=== PATIENT | male | born 1940 | race Caucasian/White ===

== ENCOUNTER 2020-06-15 19:08 | Inpatient (IN) | payer MEDICARE ==
[2020-06-15] MEDS: Albuterol/Ipratropium 3.0-0.5 MG/3 ML Neb Soln ONE ×3 (19:15→23:39)
[2020-06-15] MEDS ORDERED: Morphine 2 MG/ML SYRINGE IVPUSH ONE (20:00)
[2020-06-15] MEDS ORDERED: Morphine 2 MG/ML SYRINGE ONE (20:10)
[2020-06-15] MEDS ORDERED: Diltiazem 25 MG/5 ML SDV IVPUSH ONE (20:25)
[2020-06-15] MEDS ORDERED: D5 1/2 NS w/ 40 mEq/L KCl 1,000 ML ONE (20:38)
[2020-06-15] MEDS ORDERED: Sodium Chloride 0.9% with KCl 1,000 ML IV SCH (20:45)
[2020-06-15] MEDS ORDERED: ceFAZolin 1 GM in Sodium Chloride 0.9% 50 ML IV ONE (21:46)
[2020-06-15] MEDS ORDERED: Azithromycin 500 MG in Sodium Chloride 0.9% 250 ML IV ONE (21:47)
[2020-06-15] MEDS ORDERED: ceFAZolin 1 GM Vial ONE (22:25)
[2020-06-15] MEDS ORDERED: Furosemide 40 MG/4 ML VIAL IVPUSH ONE (23:25)
--- NOTE | 2020-06-15 23:38 | CT ---
DATE OF SERVICE: 06/15/2020 CLINICAL DATA: Found lying on floor. SOB. UNENHANCED BRAIN CT: Multislice axial acquisition was performed. Comparison is made to a prior exam dated 07/22/2016. There is diffuse cerebral atrophy. There are extensive periventricular lucencies bilaterally consistent with small vessel ischemic change. No masses or mass effect. No intracranial hemorrhage. No evidence of acute or subacute infarct. No fractures. There is mucosal thickening in the ethmoid sinuses consistent with chronic sinusitis. There is also mucosal thickening and fluid in the sphenoid sinuses consistent with sinusitis. No fractures. IMPRESSION: No acute intracranial abnormalities. [id number] [facility]
[2020-06-15] MEDS: Albuterol/Ipratropium 3.0-0.5 MG/3 ML Neb Soln NEB SCH (23:53)
--- NOTE | 2020-06-16 00:14 | CT ---
DATE OF SERVICE: 06/15/2020 CLINICAL DATA: SOB- found lying on floor. UNENHANCED CHEST CT: Multislice axial acquisition without IV contrast was performed. No priors. Breathing motion artifact significantly degrades image quality. There are small bilateral pleural effusions, right greater than left. There are atelectatic changes in the dependent portion of both lungs and in both lung bases. The lungs are otherwise clear. No pneumothorax. The heart is enlarged. Cardiac pacer leads are noted. There are moderate coronary artery calcifications. No significant pericardial effusion. No aortic aneurysm. No hilar or mediastinal adenopathy. There is diffuse mural thickening throughout the thoracic esophagus. Esophagitis or an infiltrating process should be considered. There is a small hiatal hernia. There is degenerative disc disease throughout the thoracic spine. There is anterior wedging of multiple thoracic vertebrae that appear to be chronic. There is a chronic fracture of the sternum. No other significant findings. UNENHANCED ABDOMEN AND PELVIC CT: Multislice axial acquisition without IV or oral contrast was performed. No priors. There are small bilateral pleural effusions. There is a small hiatal hernia. The unenhanced liver appears normal. No focal hepatic lesions. The gallbladder appears normal. No calcified gallstones. The spleen appears normal. The pancreas is atrophic, otherwise normal. The right and left adrenals appear normal. There is mild atrophy at both kidneys. The right and left kidneys are otherwise unremarkable. No hydronephrosis or hydroureter. The patient is status post bilateral total hip arthroplasty. This does produced significant beam hardening and streak artifact obscuring adjacent structures. The bladder is fluid filled. It is partially obscured. No gross abnormalities. No free air. No free fluid. No dilated loops of bowel. No adenopathy. No aortic aneurysm. There is diverticulosis of the descending and sigmoid colon. No evidence of diverticulitis. There is mural thickening within the proximal and mid sigmoid colon most likely related to chronic diverticular disease. Colonoscopy should be considered to exclude an infiltrating process. There is a fat containing ventral hernia within the midline of the anterior abdominal wall. There is degenerative disc disease throughout the lumbar spine. No acute displaced fractures. IMPRESSION: No acute abnormalities. Multiple other findings as discussed above. See above recommendation. [id number] [facility]
[2020-06-16] MEDS ORDERED: LORazepam 2 MG/ML SDV IVPUSH PRN (00:17)
--- NOTE | 2020-06-16 02:37 | ADMIT ---
This 80-year-old male was admitted from the emergency room with pneumonia, hypokalemia, and elevated troponin level, lactic acid of 2.7 elevated, and CHF with a BNP of 13,600. The patient is malnourished. He is somewhat dehydrated. He was found lying on the floor at home for an extended period of time, thought to be over 1 day. Cardiology was consulted involving the elevated troponin level and it was determined that he would be admitted here and serial troponins every 6 to 8 hours will be done to see if they continue to elevate. If they elevate, Cardiology will be contacted once again for transfer purposes. If the troponins remain roughly the same or go down, this is not an acute cardiac event and that is the assumption after my conversation with Cardiology. A CPK will be drawn as well as repeat labs including a troponin, CBC, CMP, BNP, and lactic acid in the morning. The patient was started on normal saline with potassium 40 mEq. This was initially given at a rate of 250 mL an hour for 2 hours and it will be dropped down to 125 until 1 L infused. We will give Lasix 40 mg IV and insert a Gtz catheter. Due to the lactic acid being elevated along with a white count of 13,300, the patient will be given Ancef and Zithromax IV tonight as well. His vital signs have stabilized since coming to the emergency room and the patient has denied pain the entire time. Bruising was noted to the right shoulder and the right side of his face and he is in quite poor hygiene upon arrival. The patient will be followed with lab work and monitoring him closely overnight to see how he responds. So far, he is responding favorably. CRS/MODL /[id number]
[2020-06-16] MEDS: Albuterol/Ipratropium 3.0-0.5 MG/3 ML Neb Soln NEB SCH ×6 (04:00→23:51)
[2020-06-16] MEDS: Lisinopril 10 MG Tab PO SCH (07:37)
[2020-06-16] MEDS: amLODIPine 5 MG Tab PO SCH (07:38)
[2020-06-16] MEDS: Aspirin 81 MG Tab.EC PO SCH (07:38)
[2020-06-16] MEDS: Spironolactone 25 MG Tab PO SCH (07:38)
[2020-06-16] MEDS ORDERED: Non-Formulary Medication 1 Each (Fluticasone/Salmeterol [Advair 250-50] 1 PUFF) INH SCH (08:00)
--- NOTE | 2020-06-16 12:02 | PCM.PN ---
- General Info Date of Service: 06/16/20 Subjective Update: Patient alert to place, month and year. He knows the current president. He denies any pain or fever. He notes he doesn't feel 100% but cannot tell what it is. Functional Status: Reports: Tolerating Diet - Review of Systems General: Reports: Weakness, Fatigue HEENT: Reports: No Symptoms Pulmonary: Reports: No Symptoms Cardiovascular: Reports: No Symptoms Gastrointestinal: Reports: No Symptoms Genitourinary: Reports: No Symptoms Musculoskeletal: Reports: No Symptoms Skin: Reports: No Symptoms Neurological: Reports: Difficulty Walking, Weakness Psychiatric: Reports: No Symptoms - Patient Data Vitals - Most Recent: Last Vital Signs Temp 36.6 C 06/16/20 08:00 Pulse 93 06/16/20 08:00 Resp 22 H 06/16/20 08:00 BP 173/102 H 06/16/20 08:00 Pulse Ox 94 L 06/16/20 08:00 Weight - Most Recent: 72.575 kg I&O - Last 24 Hours: Intake & Output 06/15/20 06/16/20 06/16/20 22:59 06:59 14:59 Intake Total 1050 Output Total 1675 Balance -625 Lab Results Last 24 Hours: Laboratory Results - last 24 hr 06/15/20 06/15/20 06/15/20 Range/Units 20:10 20:10 20:10 WBC 13.3 H D (4.0-11.0) K/uL RBC 5.42 (4.50-6.50) M/uL Hgb 14.5 (13.0-18.0) g/dL Hct 43.3 (40.0-54.0) % MCV 80 (76-96) fL MCH 26.8 L (27.0-32.0) pg MCHC 33.5 (31.0-35.0) g/dL RDW 16.0 (11.0-16.0) % Plt Count 314 (150-400) K/uL MPV 8.2 (6.0-10.0) fL Neut % (Auto) 83.6 H (45.0-70.0) % Lymph % (Auto) 6.2 L (20.0-40.0) % [place] % (Auto) 10.1 H (3.0-10.0) % Eos % (Auto) 0.0 L (1.0-5.0) % Baso % (Auto) 0.1 (0.0-0.5) % Neut # (Auto) 11.14 H (2.00-7.50) K/uL Lymph # (Auto) 0.83 L (1.50-4.00) K/uL [place] # (Auto) 1.35 H (0.20-0.80) K/uL Eos # (Auto) 0.00 L (0.04-0.40) K/uL Baso # (Auto) 0.02 (0.02-0.10) K/uL PT 12.7 H D (9.0-11.5) sec INR 1.2 D (1.0-3.5) Sodium 135 L (136-145) mmol/L Potassium 2.7 L* D (3.5-5.1) mmol/L Chloride 94 L (98-107) mmol/L Carbon Dioxide 32.0 (21.0-32.0) mmol/L Anion Gap 11.7 (5.0-15.0) mmol/L BUN 17 D (8-26) mg/dL Creatinine 1.02 D (0.70-1.30) mg/dL Est Cr Clr Drug Dosing TNP Estimated GFR (MDRD) > 60 (>60) MLS/MIN BUN/Creatinine Ratio 16.7 (6-25) Glucose 111 H (74-100) mg/dL Lactic Acid (0.4-2.0) mmol/L Calcium 8.3 L (8.5-10.1) mg/dL Total Bilirubin 2.7 H D (0.0-1.0) mg/dL AST 80 H (15-37) U/L ALT 41 (12-78) U/L Alkaline Phosphatase 130 H (46-116) U/L Creatine Kinase (21-232) U/L Troponin I (0.000-0.060) ng/mL B-Natriuretic Peptide (0-450) pg/mL Total Protein 7.5 (6.4-8.2) g/dL Albumin 2.6 L (3.4-5.0) g/dL Globulin 4.9 H (2.2-4.2) g/dL Albumin/Globulin Ratio 0.5 L (0.8-2.0) SARS CoV-2 RNA Rapid KENDAL 06/15/20 06/15/20 06/15/20 Range/Units 20:10 20:10 20:10 WBC (4.0-11.0) K/uL RBC (4.50-6.50) M/uL Hgb (13.0-18.0) g/dL Hct (40.0-54.0) % MCV (76-96) fL MCH (27.0-32.0) pg MCHC (31.0-35.0) g/dL RDW (11.0-16.0) % Plt Count (150-400) K/uL MPV (6.0-10.0) fL Neut % (Auto) (45.0-70.0) % Lymph % (Auto) (20.0-40.0) % [place] % (Auto) (3.0-10.0) % Eos % (Auto) (1.0-5.0) % Baso % (Auto) (0.0-0.5) % Neut # (Auto) (2.00-7.50) K/uL Lymph # (Auto) (1.50-4.00) K/uL [place] # (Auto) (0.20-0.80) K/uL Eos # (Auto) (0.04-0.40) K/uL Baso # (Auto) (0.02-0.10) K/uL PT (9.0-11.5) sec INR (1.0-3.5) Sodium (136-145) mmol/L Potassium (3.5-5.1) mmol/L Chloride (98-107) mmol/L Carbon Dioxide (21.0-32.0) mmol/L Anion Gap (5.0-15.0) mmol/L BUN (8-26) mg/dL Creatinine (0.70-1.30) mg/dL Est Cr Clr Drug Dosing Estimated GFR (MDRD) (>60) MLS/MIN BUN/Creatinine Ratio (6-25) Glucose (74-100) mg/dL Lactic Acid 2.7 H (0.4-2.0) mmol/L Calcium (8.5-10.1) mg/dL Total Bilirubin (0.0-1.0) mg/dL AST (15-37) U/L ALT (12-78) U/L Alkaline Phosphatase (46-116) U/L Creatine Kinase (21-232) U/L Troponin I 1.008 H* (0.000-0.060) ng/mL B-Natriuretic Peptide 33206 H D (0-450) pg/mL Total Protein (6.4-8.2) g/dL Albumin (3.4-5.0) g/dL Globulin (2.2-4.2) g/dL Albumin/Globulin Ratio (0.8-2.0) SARS CoV-2 RNA Rapid KENDAL 06/15/20 06/15/20 06/16/20 Range/Units 20:10 23:50 05:25 WBC (4.0-11.0) K/uL RBC (4.50-6.50) M/uL Hgb (13.0-18.0) g/dL Hct (40.0-54.0) % MCV (76-96) fL MCH (27.0-32.0) pg MCHC (31.0-35.0) g/dL RDW (11.0-16.0) % Plt Count (150-400) K/uL MPV (6.0-10.0) fL Neut % (Auto) (45.0-70.0) % Lymph % (Auto) (20.0-40.0) % [place] % (Auto) (3.0-10.0) % Eos % (Auto) (1.0-5.0) % Baso % (Auto) (0.0-0.5) % Neut # (Auto) (2.00-7.50) K/uL Lymph # (Auto) (1.50-4.00) K/uL [place] # (Auto) (0.20-0.80) K/uL Eos # (Auto) (0.04-0.40) K/uL Baso # (Auto) (0.02-0.10) K/uL PT (9.0-11.5) sec INR (1.0-3.5) Sodium (136-145) mmol/L Potassium (3.5-5.1) mmol/L Chloride (98-107) mmol/L Carbon Dioxide (21.0-32.0) mmol/L Anion Gap (5.0-15.0) mmol/L BUN (8-26) mg/dL Creatinine (0.70-1.30) mg/dL Est Cr Clr Drug Dosing Estimated GFR (MDRD) (>60) MLS/MIN BUN/Creatinine Ratio (6-25) Glucose (74-100) mg/dL Lactic Acid (0.4-2.0) mmol/L Calcium (8.5-10.1) mg/dL Total Bilirubin (0.0-1.0) mg/dL AST (15-37) U/L ALT (12-78) U/L Alkaline Phosphatase (46-116) U/L Creatine Kinase 1130 H (21-232) U/L Troponin I 1.092 H* (0.000-0.060) ng/mL B-Natriuretic Peptide (0-450) pg/mL Total Protein (6.4-8.2) g/dL Albumin (3.4-5.0) g/dL Globulin (2.2-4.2) g/dL Albumin/Globulin Ratio (0.8-2.0) SARS CoV-2 RNA Rapid KENDAL Negative 06/16/20 06/16/20 06/16/20 Range/Units 05:25 05:25 05:25 WBC 13.2 H (4.0-11.0) K/uL RBC 4.89 (4.50-6.50) M/uL Hgb 12.9 L (13.0-18.0) g/dL Hct 39.1 L (40.0-54.0) % MCV 80 (76-96) fL MCH 26.4 L (27.0-32.0) pg MCHC 33.0 (31.0-35.0) g/dL RDW 16.1 H (11.0-16.0) % Plt Count 296 (150-400) K/uL MPV 8.4 (6.0-10.0) fL Neut % (Auto) 82.4 H (45.0-70.0) % Lymph % (Auto) 6.8 L (20.0-40.0) % [place] % (Auto) 10.7 H (3.0-10.0) % Eos % (Auto) 0.0 L (1.0-5.0) % Baso % (Auto) 0.1 (0.0-0.5) % Neut # (Auto) 10.87 H (2.00-7.50) K/uL Lymph # (Auto) 0.90 L (1.50-4.00) K/uL [place] # (Auto) 1.41 H (0.20-0.80) K/uL Eos # (Auto) 0.00 L (0.04-0.40) K/uL Baso # (Auto) 0.01 L (0.02-0.10) K/uL PT (9.0-11.5) sec INR (1.0-3.5) Sodium 137 (136-145) mmol/L Potassium 2.9 L* (3.5-5.1) mmol/L Chloride 99 (98-107) mmol/L Carbon Dioxide 30.4 (21.0-32.0) mmol/L Anion Gap 10.5 (5.0-15.0) mmol/L BUN 19 (8-26) mg/dL Creatinine 1.02 (0.70-1.30) mg/dL Est Cr Clr Drug Dosing 57.32 Estimated GFR (MDRD) > 60 (>60) MLS/MIN BUN/Creatinine Ratio 18.6 (6-25) Glucose 108 H (74-100) mg/dL Lactic Acid 2.0 (0.4-2.0) mmol/L Calcium 7.8 L (8.5-10.1) mg/dL Total Bilirubin (0.0-1.0) mg/dL AST (15-37) U/L ALT (12-78) U/L Alkaline Phosphatase (46-116) U/L Creatine Kinase (21-232) U/L Troponin I (0.000-0.060) ng/mL B-Natriuretic Peptide (0-450) pg/mL Total Protein (6.4-8.2) g/dL Albumin (3.4-5.0) g/dL Globulin (2.2-4.2) g/dL Albumin/Globulin Ratio (0.8-2.0) SARS CoV-2 RNA Rapid KENDAL Med Orders - Current: Current Medications Albuterol/Ipratropium (Duoneb 3.0-0.5 Mg/3 Ml) 3 ml NEB Q4H [facility] Last Admin: 06/16/20 07:38 Dose: 3 ml Documented by: Amlodipine Besylate (Norvasc) 5 mg PO DAILY [facility] Last Admin: 06/16/20 07:38 Dose: 5 mg Documented by: Aspirin (Halfprin) 81 mg PO DAILY [facility] Last Admin: 06/16/20 07:38 Dose: 81 mg Documented by: Lisinopril (Prinivil) 10 mg PO DAILY [facility] Last Admin: 06/16/20 07:37 Dose: 10 mg Documented by: Lorazepam (Ativan) 0.5 mg IVPUSH Q4H PRN PRN Reason: Agitation Last Admin: 06/16/20 03:18 Dose: 0.5 mg Documented by: Mometasone Furoate/Formoterol Fumar (Dulera 200-5 Mcg) 2 puff IH BID [facility] Non-Formulary Medication (Fluticasone/Salmeterol [Advair 250-50]) 1 puff INH BID [facility] Spironolactone (Aldactone) 25 mg PO DAILY [facility] Last Admin: 06/16/20 07:38 Dose: 25 mg Documented by: Discontinued Medications Albuterol/Ipratropium (Duoneb 3.0-0.5 Mg/3 Ml) Confirm Administered Dose 3 ml .ROUTE .STK-MED ONE Stop: 06/15/20 19:42 Last Admin: 06/15/20 23:39 Dose: Not Given Documented by: Cefazolin Sodium (Ancef) Confirm Administered Dose 1 gm .ROUTE .STK-MED ONE Stop: 06/15/20 22:26 Last Admin: 06/16/20 00:00 Dose: Not Given Documented by: Diltiazem HCl (Diltiazem) 20 mg IVPUSH ONETIME ONE Stop: 06/15/20 20:26 Last Admin: 06/15/20 21:59 Dose: 20 mg Documented by: Furosemide (Lasix) 40 mg IVPUSH NOW ONE Stop: 06/15/20 23:26 Last Admin: 06/15/20 23:54 Dose: 40 mg Documented by: Potassium Chloride/Sodium Chloride (Normal Saline With 40 Meq Kcl) 1,000 mls @ 250 mls/hr IV ASDIRECTED [facility] Last Infusion: 06/15/20 23:05 Dose: 125 mls/hr Documented by: Potassium Chloride/Dextrose/Sod Cl (D5 1/2 Ns W/ 40 Meq/L Kcl) Confirm Admin istered Dose 1,000 mls @ as directed .ROUTE .STK-MED ONE Stop: 06/15/20 20:39 Last Admin: 06/16/20 00:12 Dose: Not Given Documented by: Cefazolin Sodium 1 gm/ Sodium (Chloride) 50 mls @ 200 mls/hr IV ONETIME ONE Stop: 06/15/20 22:00 Last Admin: 06/16/20 00:01 Dose: 200 mls/hr Documented by: Azithromycin 500 mg/ Sodium (Chloride) 250 mls @ 250 mls/hr IV ONETIME ONE Stop: 06/15/20 22:46 Last Admin: 06/16/20 00:24 Dose: 250 mls/hr Documented by: Morphine Sulfate (Morphine) Confirm Administered Dose 2 mg .ROUTE .STK-MED ONE Stop: 06/15/20 20:11 Last Admin: 06/16/20 04:31 Dose: Not Given Documented by: Morphine Sulfate (Morphine) 2 mg IVPUSH ONETIME ONE Stop: 06/15/20 20:01 Last Admin: 06/15/20 20:00 Dose: 2 mg Documented by: - Exam General: Alert, Cooperative HEENT: Pupils Equal, Pupils Reactive, EOMI Neck: Supple Lungs: Clear to Auscultation, Normal Respiratory Effort Cardiovascular: Regular Rate, Regular Rhythm GI/Abdominal Exam: Normal Bowel Sounds, Soft, Non-Tender Extremities: Normal Inspection Skin: Other (large [id number] cancerous lesion of the posterior scalp) Psy/Mental Status: Alert, Normal Affect, Normal Mood Sepsis Event Note - Evaluation Sepsis Screening Result: Sepsis Risk - Focused Exam Vital Signs: Vital Signs Temp Temp Pulse Resp BP BP Pulse Ox 06/16/20 08:00 36.6 C 93 22 H 173/102 H 94 L 06/16/20 07:38 173/102 H 06/16/20 07:37 173/102 H 06/16/20 04:52 86 176/109 H 06/16/20 02:39 36.6 C 89 18 178/102 H 95 - Problem List & Annotations (1) Syncope and collapse SNOMED Code(s): 324412802 Code(s): R55 - SYNCOPE AND COLLAPSE Status: Acute Priority: High Current Visit: Yes (2) Hypokalemia SNOMED Code(s): 00683732 Code(s): E87.6 - HYPOKALEMIA Status: Acute Priority: High Current Visit: Yes (3) Weakness SNOMED Code(s): 22657579 Code(s): R53.1 - WEAKNESS Status: Acute Priority: High Current Visit: Yes Annotation/Comment:: Possible CVA like symptoms but Ct head negative and MRI unable to be done due to pacemaker (4) Basal cell carcinoma (BCC) in situ of skin SNOMED Code(s): 59284630563420 Code(s): D04.9 - CARCINOMA IN SITU OF SKIN, UNSPECIFIED Status: Chronic Priority: High Current Visit: Yes Annotation/Comment:: Large area [id number] of the posterior scalp that has been present for a long time per patient. - Problem List Review Problem List Initiated/Reviewed/Updated: Yes - My Orders Last 24 Hours: My Active Orders 06/16/20 10:49 Resuscitation Status Routine - Plan Plan:: Patient to be monitored for potassium and replenished. PT/OT ordered. F/u labs in am. Continue hydration and repeat troponins.
[2020-06-16] MEDS ORDERED: Sodium Chloride 0.9% with KCl 1,000 ML IV SCH (12:15)
--- NOTE | 2020-06-16 14:15 | ER ---
HISTORY OF PRESENT ILLNESS: 80-year-old male who comes in by ambulance with complaints of being found lying on his floor, timeframe unknown, it is thought that he could have been there for over a day. The patient was conscious. His O2 sats were in the 80% range when EMS crew arrived. They applied oxygen and that brought his sats up into the 90s. The patient was in very poor hygiene and that soiled himself both bowel and bladder contents. The only injury noted was a bruise to the right side of his face and the patient has been able to move all the extremities. Upon arrival to the emergency room, the patient's vital signs were blood pressure 191/110, pulse was 95, O2 sats were 93% even with oxygen removed at this time. Respirations were between 30 and 40. He was afebrile. The patient again denies any complaints of pain and tells me that he feels okay. PAST MEDICAL HISTORY: Includes: 1. Atrial fibrillation. 2. Coronary artery disease. 3. CHF. 4. Hyperlipidemia. MEDICATIONS: The patient tells me he has not taken medications for a while. He does not think he has seen a doctor for probably 3 years and when his medications ran out, he has quit taking them. PHYSICAL EXAMINATION: HEENT: Pupils equal, round, and reactive to light. The patient has tobacco in his mouth as well. Mucous membranes are dry. Tonsils are not enlarged or injected. Pharynx not inflamed. LUNG EXAM: Reveals reduced air exchange with expiratory rhonchi in both bases. I can hear expiratory wheezes scattered throughout the lung sweet. CARDIAC. Heart sounds are distinct with a regular rate. ABDOMEN: Soft, nontender. Bowel sounds are present. SKIN: Warm and dry. INITIAL TREATMENT PLAN: DuoNeb was given, which did seem to help the patient's breathing. His respirations are now starting to drop slightly, they were in the low 30 range at times dropping into the mid 20s. An EKG was obtained showing a paced rhythm without any other abnormal findings. At this point, the patient was given morphine 2 mg to help with his respirations. He was taken to CT. CT of the head is unremarkable. No acute intracranial injuries or fractures. CT of the lungs show mild atelectasis or possibly infiltrate within the lower lobes. Mild bronchial cuffing was also noted. He has small bilateral pleural effusions. No other acute findings. CT of the abdomen is unremarkable. LABORATORY DATA: Labs include a CBC showing a white count of 13.3. Neutrophils are also elevated. Comprehensive metabolic panel shows a potassium level of 2.7, sodium 135, BUN 17, creatinine 1.02. Lactic acid 2.7. Troponin at 1.0. BNP is 13,600. COVID is negative. At this point, we started normal saline with potassium 40 mEq at 250 mL an hour for 2 hours, then we will wean down on the dose over the rate. The patient's vital signs continued to slowly improve. His blood pressure is now 156/96. I gave him Cardizem 20 mg IV and within an hour, his blood pressure was 107/71. A bruise noted on the right shoulder and the right side of his face. He also has a growth on the back of his head, this is not new. At this point, I consulted with Cardiology from [facility] in [place], Dr. Nath, involving the patient's elevated troponin level with the following treatment plan. We will admit the patient here at [facility] in [place]. CPK will be drawn and we will get serial troponin levels. If the troponin levels continue to be elevated and continue to go higher, I will call the heater furnace back for possible transfer. On the other hand, this could all be due to all of the other things the patient has going on that included falling and lying on the floor for extended period of time. The patient will be admitted for inpatient therapy that includes IV antibiotics. DIAGNOSES: 1. Pneumonia. 2. Elevated troponin. 3. Hypokalemia. 4. Elevated lactic acid. 5. Congestive heart failure. CRS/MODL /[id number]
[2020-06-16] MEDS: Formoterol/Mometasone 200-5 MCG 8.8 GM Inhaler IH SCH (19:57)
[2020-06-16] MEDS: Sodium Chloride 0.9% 10 ML Syringe FLUSH PRN (20:09)
[2020-06-17] MEDS: Albuterol/Ipratropium 3.0-0.5 MG/3 ML Neb Soln NEB SCH ×6 (03:27→23:36)
[2020-06-17] MEDS: Formoterol/Mometasone 200-5 MCG 8.8 GM Inhaler IH SCH ×2 (08:35→20:17)
[2020-06-17] MEDS: Aspirin 81 MG Tab.EC PO SCH (08:36)
[2020-06-17] MEDS: amLODIPine 5 MG Tab PO SCH (08:36)
[2020-06-17] MEDS: Spironolactone 25 MG Tab PO SCH (08:37)
[2020-06-17] MEDS: Lisinopril 10 MG Tab PO SCH (08:37)
--- NOTE | 2020-06-17 13:14 | PCM.PN ---
- General Info Date of Service: 06/17/20 Subjective Update: Patient feels about the same today. He remains very weak and tired. He has had trouble recalling why he collapsed. He denies any chest pain or shortness of breath today. No other concerns. Functional Status: Reports: Pain Controlled - Review of Systems General: Reports: Weakness, Fatigue HEENT: Reports: No Symptoms Pulmonary: Reports: No Symptoms Cardiovascular: Reports: No Symptoms Gastrointestinal: Reports: No Symptoms Genitourinary: Reports: No Symptoms Musculoskeletal: Reports: No Symptoms Skin: Reports: No Symptoms Neurological: Reports: Difficulty Walking, Weakness Psychiatric: Reports: No Symptoms - Patient Data Vitals - Most Recent: Last Vital Signs Temp 36.3 C 06/17/20 09:00 Pulse 84 06/17/20 09:00 Resp 18 06/17/20 09:00 BP 145/86 H 06/17/20 09:00 Pulse Ox 95 06/17/20 09:00 Weight - Most Recent: 83.37 kg I&O - Last 24 Hours: Intake & Output 06/16/20 06/17/20 06/17/20 22:59 06:59 14:59 Intake Total 2305 360 Output Total 400 350 Balance 1905 10 Lab Results Last 24 Hours: Laboratory Results - last 24 hr 06/17/20 06/17/20 Range/Units 07:30 07:30 WBC 13.6 H (4.0-11.0) K/uL RBC 4.52 (4.50-6.50) M/uL Hgb 11.9 L (13.0-18.0) g/dL Hct 36.8 L (40.0-54.0) % MCV 81 (76-96) fL MCH 26.3 L (27.0-32.0) pg MCHC 32.3 (31.0-35.0) g/dL RDW 16.6 H (11.0-16.0) % Plt Count 279 (150-400) K/uL MPV 8.7 (6.0-10.0) fL Neut % (Auto) 83.0 H (45.0-70.0) % Lymph % (Auto) 6.7 L (20.0-40.0) % [place] % (Auto) 9.9 (3.0-10.0) % Eos % (Auto) 0.3 L (1.0-5.0) % Baso % (Auto) 0.1 (0.0-0.5) % Neut # (Auto) 11.31 H (2.00-7.50) K/uL Lymph # (Auto) 0.91 L (1.50-4.00) K/uL [place] # (Auto) 1.35 H (0.20-0.80) K/uL Eos # (Auto) 0.04 (0.04-0.40) K/uL Baso # (Auto) 0.02 (0.02-0.10) K/uL Sodium 140 (136-145) mmol/L Potassium 3.0 L (3.5-5.1) mmol/L Chloride 103 (98-107) mmol/L Carbon Dioxide 30.5 (21.0-32.0) mmol/L Anion Gap 9.5 (5.0-15.0) mmol/L BUN 25 D (8-26) mg/dL Creatinine 0.94 (0.70-1.30) mg/dL Est Cr Clr Drug Dosing 62.56 mL/min Estimated GFR (MDRD) > 60 (>60) MLS/MIN BUN/Creatinine Ratio 26.6 H (6-25) Glucose 102 H (74-100) mg/dL Calcium 7.4 L (8.5-10.1) mg/dL Magnesium 1.7 L (1.8-2.4) mg/dL Total Bilirubin 1.6 H D (0.0-1.0) mg/dL AST 76 H (15-37) U/L ALT 37 (12-78) U/L Alkaline Phosphatase 94 (46-116) U/L Creatine Kinase 548 H (21-232) U/L Troponin I 0.670 H* D (0.000-0.060) ng/mL Total Protein 6.1 L (6.4-8.2) g/dL Albumin 2.1 L (3.4-5.0) g/dL Globulin 4.0 (2.2-4.2) g/dL Albumin/Globulin Ratio 0.5 L (0.8-2.0) Med Orders - Current: Current Medications Albuterol/Ipratropium (Duoneb 3.0-0.5 Mg/3 Ml) 3 ml NEB Q4H [facility] Last Admin: 06/17/20 11:36 Dose: 3 ml Documented by: Amlodipine Besylate (Norvasc) 5 mg PO DAILY [facility] Last Admin: 06/17/20 08:36 Dose: 5 mg Documented by: Aspirin (Halfprin) 81 mg PO DAILY [facility] Last Admin: 06/17/20 08:36 Dose: 81 mg Documented by: Lisinopril (Prinivil) 10 mg PO DAILY [facility] Last Admin: 06/17/20 08:37 Dose: 10 mg Documented by: Lorazepam (Ativan) 0.5 mg IVPUSH Q4H PRN PRN Reason: Agitation Last Admin: 06/16/20 03:18 Dose: 0.5 mg Documented by: Mometasone Furoate/Formoterol Fumar (Dulera 200-5 Mcg) 2 puff IH BID [facility] Last Admin: 06/17/20 08:35 Dose: 2 puff Documented by: Sodium Chloride (Saline Flush) 10 ml FLUSH SEECOMMENT PRN PRN Reason: Keep Vein Open Last Admin: 06/16/20 20:09 Dose: 10 ml Documented by: Spironolactone (Aldactone) 25 mg PO DAILY [facility] Last Admin: 06/17/20 08:37 Dose: 25 mg Documented by: Discontinued Medications Albuterol/Ipratropium (Duoneb 3.0-0.5 Mg/3 Ml) Confirm Administered Dose 3 ml .ROUTE .STK-MED ONE Stop: 06/15/20 19:42 Last Admin: 06/15/20 23:39 Dose: Not Given Documented by: Cefazolin Sodium (Ancef) Confirm Administered Dose 1 gm .ROUTE .STK-MED ONE Stop: 06/15/20 22:26 Last Admin: 06/16/20 00:00 Dose: Not Given Documented by: Diltiazem HCl (Diltiazem) 20 mg IVPUSH ONETIME ONE Stop: 06/15/20 20:26 Last Admin: 06/15/20 21:59 Dose: 20 mg Documented by: Furosemide (Lasix) 40 mg IVPUSH NOW ONE Stop: 06/15/20 23:26 Last Admin: 06/15/20 23:54 Dose: 40 mg Documented by: Potassium Chloride/Sodium Chloride (Normal Saline With 40 Meq Kcl) 1,000 mls @ 250 mls/hr IV ASDIRECTED [facility] Last Infusion: 06/15/20 23:05 Dose: 125 mls/hr Documented by: Potassium Chloride/Dextrose/Sod Cl (D5 1/2 Ns W/ 40 Meq/L Kcl) Confirm Administered Dose 1,000 mls @ as directed .ROUTE .STK-MED ONE Stop: 06/15/20 20:39 Last Admin: 06/16/20 00:12 Dose: Not Given Documented by: Cefazolin Sodium 1 gm/ Sodium (Chloride) 50 mls @ 200 mls/hr IV ONETIME ONE Stop: 06/15/20 22:00 Last Admin: 06/16/20 00:01 Dose: 200 mls/hr Documented by: Azithromycin 500 mg/ Sodium (Chloride) 250 mls @ 250 mls/hr IV ONETIME ONE Stop: 06/15/20 22:46 Last Admin: 06/16/20 00:24 Dose: 250 mls/hr Documented by: Potassium Chloride/Sodium Chloride (Normal Saline With 40 Meq Kcl) 1,000 mls @ 100 mls/hr IV ASDIRECTED [facility] Stop: 06/16/20 22:14 Last Admin: 06/16/20 13:50 Dose: 100 mls/hr Documented by: Morphine Sulfate (Morphine) Confirm Administered Dose 2 mg .ROUTE .STK-MED ONE Stop: 06/15/20 20:11 Last Admin: 06/16/20 04:31 Dose: Not Given Documented by: Morphine Sulfate (Morphine) 2 mg IVPUSH ONETIME ONE Stop: 06/15/20 20:01 Last Admin: 06/15/20 20:00 Dose: 2 mg Documented by: - Exam General: Alert, Cooperative HEENT: Pupils Equal, Pupils Reactive, EOMI Neck: Supple Lungs: Clear to Auscultation, Normal Respiratory Effort Cardiovascular: Regular Rate, Regular Rhythm Back Exam: Normal Inspection Extremities: Normal Inspection Skin: Other (cancerous lesion of scalp) Neurological: No New Focal Deficit Psy/Mental Status: Alert, Normal Affect, Normal Mood Sepsis Event Note - Evaluation Sepsis Screening Result: No Definite Risk - Focused Exam Vital Signs: Vital Signs Temp Pulse Resp BP BP Pulse Ox 06/17/20 09:00 36.3 C 84 18 145/86 H 95 06/17/20 08:37 145/86 H 06/17/20 08:36 145/86 H 06/17/20 05:00 36.4 C 82 128/76 - Problem List & Annotations (1) Hypokalemia SNOMED Code(s): 49369064 Code(s): E87.6 - HYPOKALEMIA Status: Acute Priority: High Current Visit: Yes (2) Syncope and collapse SNOMED Code(s): 242689031 Code(s): R55 - SYNCOPE AND COLLAPSE Status: Acute Priority: High Current Visit: Yes (3) Weakness SNOMED Code(s): 08223632 Code(s): R53.1 - WEAKNESS Status: Acute Priority: High Current Visit: Yes Annotation/Comment:: Possible CVA like symptoms but Ct head negative and MRI unable to be done due to pacemaker (4) Basal cell carcinoma (BCC) in situ of skin SNOMED Code(s): 16496986473186 Code(s): D04.9 - CARCINOMA IN SITU OF SKIN, UNSPECIFIED Status: Chronic Priority: High Current Visit: Yes Annotation/Comment:: Large area [id number] of the posterior scalp that has been present for a long time per patient. (5) Hyponatremia SNOMED Code(s): 70478302 Code(s): E87.1 - HYPO-OSMOLALITY AND HYPONATREMIA Status: Acute Current Visit: No Annotation/Comment:: 01/19/2015 Increased IV fluids to 75mg daily. (6) Hypomagnesemia SNOMED Code(s): 715343865 Code(s): E83.42 - HYPOMAGNESEMIA Status: Acute Priority: High Current Visit: Yes (7) Elevated creatine kinase level Status: Acute Priority: High Current Visit: Yes (8) Rhabdomyolysis SNOMED Code(s): 993402938 Code(s): M62.82 - RHABDOMYOLYSIS Status: Acute Priority: High Current Visit: Yes - Problem List Review Problem List Initiated/Reviewed/Updated: Yes - My Orders Last 24 Hours: My Active Orders 06/17/20 10:42 PT Evaluation and Treatment [CONS] Routine 06/17/20 10:44 OT Evaluation and Treatment [CONS] Routine - Plan Plan:: Patient to continue gentle hydration. Continue PT/OT F/u troponins as they are trending down. F/u labs and potassium for stabilization. Monitor neuro due to recent syncope for memory and right sided weakness. CIWAA protocol started. Last drink 3 days ago. Banana bag to be started. Cancerous skin lesion on scalp - referral to Dermatology outpatient. Recheck CK levels to monitor resolving Rhabdomyolysis. Hyponatremia resolved. Supplement magnesium.
[2020-06-17] MEDS ORDERED: MVI, Adult with Vitamin K 10 ML, Thiamine 100 MG, Folic Acid 1 MG, Magnesium Sulfate 3 ... IV SCH ×5 (17:15)
[2020-06-17] MEDS ORDERED: Thiamine 200 MG/2 ML MDV ONE (19:37)
[2020-06-17] MEDS: Potassium Chloride 20 MEQ Tab.ER PO SCH (20:03)
[2020-06-17] MEDS: Sodium Chloride 0.9% 10 ML Syringe FLUSH PRN (20:30)
[2020-06-18] MEDS: Albuterol/Ipratropium 3.0-0.5 MG/3 ML Neb Soln NEB SCH ×5 (03:57→20:29)
[2020-06-18] MEDS: amLODIPine 5 MG Tab PO SCH (07:54)
[2020-06-18] MEDS: Aspirin 81 MG Tab.EC PO SCH (07:54)
[2020-06-18] MEDS: Lisinopril 10 MG Tab PO SCH (07:57)
[2020-06-18] MEDS: Spironolactone 25 MG Tab PO SCH (07:57)
[2020-06-18] MEDS: Potassium Chloride 20 MEQ Tab.ER PO SCH ×3 (07:57→20:31)
[2020-06-18] MEDS: Formoterol/Mometasone 200-5 MCG 8.8 GM Inhaler IH SCH ×2 (08:45→20:29)
[2020-06-18] MEDS ORDERED: Furosemide 40 MG/4 ML VIAL IVPUSH ONE (11:14)
--- NOTE | 2020-06-18 14:35 | PCM.PN ---
- General Info Date of Service: 06/18/20 Subjective Update: Additional BNP ordered today, patient RR 32 on 2L O2, IV lasix ordered.. Patient resting comfortably in chair. Right leg remains weak on exam. Denies any pain or SOB, lung sounds decreased bilateral bases with scattered crackles. Functional Status: Reports: Pain Controlled, Tolerating Diet - Review of Systems General: Reports: No Symptoms HEENT: Reports: No Symptoms Pulmonary: Reports: No Symptoms Cardiovascular: Reports: No Symptoms Gastrointestinal: Reports: No Symptoms Genitourinary: Reports: No Symptoms Musculoskeletal: Reports: No Symptoms Skin: Reports: No Symptoms Neurological: Reports: Difficulty Walking, Weakness Psychiatric: Reports: No Symptoms - Patient Data Vitals - Most Recent: Last Vital Signs Temp 98.2 F 06/18/20 13:00 Pulse 80 06/18/20 13:00 Resp 24 H 06/18/20 13:00 BP 139/79 06/18/20 13:00 Pulse Ox 99 06/18/20 13:00 Weight - Most Recent: 183 lb 12.8 oz I&O - Last 24 Hours: Intake & Output 06/17/20 06/18/20 06/18/20 22:59 06:59 14:59 Intake Total 1220 Output Total 400 450 Balance -400 770 Lab Results Last 24 Hours: Laboratory Results - last 24 hr 06/18/20 06/18/20 06/18/20 Range/Units 07:40 07:40 10:51 WBC 12.8 H (4.0-11.0) K/uL RBC 4.58 (4.50-6.50) M/uL Hgb 12.1 L (13.0-18.0) g/dL Hct 37.7 L (40.0-54.0) % MCV 82 (76-96) fL MCH 26.4 L (27.0-32.0) pg MCHC 32.1 (31.0-35.0) g/dL RDW 17.0 H (11.0-16.0) % Plt Count 281 (150-400) K/uL MPV 8.3 (6.0-10.0) fL Neut % (Auto) 78.0 H (45.0-70.0) % Lymph % (Auto) 9.9 L (20.0-40.0) % [place] % (Auto) 11.6 H (3.0-10.0) % Eos % (Auto) 0.5 L (1.0-5.0) % Baso % (Auto) 0.0 (0.0-0.5) % Neut # (Auto) 9.96 H (2.00-7.50) K/uL Lymph # (Auto) 1.27 L (1.50-4.00) K/uL [place] # (Auto) 1.48 H (0.20-0.80) K/uL Eos # (Auto) 0.06 (0.04-0.40) K/uL Baso # (Auto) 0.00 L (0.02-0.10) K/uL Sodium 140 (136-145) mmol/L Potassium 3.6 (3.5-5.1) mmol/L Chloride 104 (98-107) mmol/L Carbon Dioxide 29.8 (21.0-32.0) mmol/L Anion Gap 9.8 (5.0-15.0) mmol/L BUN 19 D (8-26) mg/dL Creatinine 0.86 (0.70-1.30) mg/dL Est Cr Clr Drug Dosing 68.38 mL/min Estimated GFR (MDRD) > 60 (>60) MLS/MIN BUN/Creatinine Ratio 22.1 (6-25) Glucose 100 (74-100) mg/dL Calcium 7.5 L (8.5-10.1) mg/dL Magnesium 2.4 D (1.8-2.4) mg/dL Total Bilirubin 1.9 H (0.0-1.0) mg/dL AST 81 H (15-37) U/L ALT 48 (12-78) U/L Alkaline Phosphatase 97 (46-116) U/L Creatine Kinase 340 H (21-232) U/L Troponin I 0.390 H* D (0.000-0.060) ng/mL B-Natriuretic Peptide 2136 H D (0-450) pg/mL Total Protein 6.1 L (6.4-8.2) g/dL Albumin 2.2 L (3.4-5.0) g/dL Globulin 3.9 (2.2-4.2) g/dL Albumin/Globulin Ratio 0.6 L (0.8-2.0) Artem Results Last 24 Hours: Microbiology 06/16/20 00:46 MRSA Surveillance Culture - Final Nares, Left NO MRSA ISOLATED Med Orders - Current: Current Medications Albuterol/Ipratropium (Duoneb 3.0-0.5 Mg/3 Ml) 3 ml NEB Q4H [facility] Last Admin: 06/18/20 11:20 Dose: 3 ml Documented by: Amlodipine Besylate (Norvasc) 5 mg PO DAILY [facility] Last Admin: 06/18/20 07:54 Dose: 5 mg Documented by: Aspirin (Halfprin) 81 mg PO DAILY [facility] Last Admin: 06/18/20 07:54 Dose: 81 mg Documented by: Lisinopril (Prinivil) 10 mg PO DAILY [facility] Last Admin: 06/18/20 07:57 Dose: 10 mg Documented by: Lorazepam (Ativan) 0.5 mg IVPUSH Q4H PRN PRN Reason: Agitation Last Admin: 06/16/20 03:18 Dose: 0.5 mg Documented by: Mometasone Furoate/Formoterol Fumar (Dulera 200-5 Mcg) 2 puff IH BID [facility] Last Admin: 06/18/20 08:45 Dose: 2 puff Documented by: Potassium Chloride (Klor-Con M20) 20 meq PO TID [facility] Stop: 06/19/20 20:01 Last Admin: 06/18/20 07:57 Dose: 20 meq Documented by: Sodium Chloride (Saline Flush) 10 ml FLUSH SEECOMMENT PRN PRN Reason: Keep Vein Open Last Admin: 06/17/20 20:30 Dose: 10 ml Documented by: Spironolactone (Aldactone) 25 mg PO DAILY [facility] Last Admin: 06/18/20 07:57 Dose: 25 mg Documented by: Discontinued Medications Albuterol/Ipratropium (Duoneb 3.0-0.5 Mg/3 Ml) Confirm Administered Dose 3 ml .ROUTE .STK-MED ONE Stop: 06/15/20 19:42 Last Admin: 06/15/20 23:39 Dose: Not Given Documented by: Cefazolin Sodium (Ancef) Confirm Administered Dose 1 gm .ROUTE .STK-MED ONE Stop: 06/15/20 22:26 Last Admin: 06/16/20 00:00 Dose: Not Given Documented by: Diltiazem HCl (Diltiazem) 20 mg IVPUSH ONETIME ONE Stop: 06/15/20 20:26 Last Admin: 06/15/20 21:59 Dose: 20 mg Documented by: Furosemide (Lasix) 40 mg IVPUSH NOW ONE Stop: 06/15/20 23:26 Last Admin: 06/15/20 23:54 Dose: 40 mg Documented by: Furosemide (Lasix) 40 mg IVPUSH NOW ONE Stop: 06/18/20 11:15 Last Admin: 06/18/20 11:22 Dose: 40 mg Documented by: Potassium Chloride/Sodium Chloride (Normal Saline With 40 Meq Kcl) 1,000 mls @ 250 mls/hr IV ASDIRECTED [facility] Last Infusion: 06/15/20 23:05 Dose: 125 mls/hr Documented by: Potassium Chloride/Dextrose/Sod Cl (D5 1/2 Ns W/ 40 Meq/L Kcl) Confirm Administered Dose 1,000 mls @ as directed .ROUTE .STK-MED ONE Stop: 06/15/20 20:39 Last Admin: 06/16/20 00:12 Dose: Not Given Documented by: Cefazolin Sodium 1 gm/ Sodium (Chloride) 50 mls @ 200 mls/hr IV ONETIME ONE Stop: 06/15/20 22:00 Last Admin: 06/16/20 00:01 Dose: 200 mls/hr Documented by: Azithromycin 500 mg/ Sodium (Chloride) 250 mls @ 250 mls/hr IV ONETIME ONE Stop: 06/15/20 22:46 Last Admin: 06/16/20 00:24 Dose: 250 mls/hr Documented by: Potassium Chloride/Sodium Chloride (Normal Saline With 40 Meq Kcl) 1,000 mls @ 100 mls/hr IV ASDIRECTED [facility] Stop: 06/16/20 22:14 Last Admin: 06/16/20 13:50 Dose: 100 mls/hr Documented by: Multivitamins/Minerals 10 ml/Thiamine HCl 100 mg/ Folic Acid 1 mg/ Magnesium Sulfate 3 gm/ Sodium Chloride 1,017.2 mls @ 100 mls/hr IV ASDIRECTED [facility] Stop: 06/18/20 03:26 Last Admin: 06/17/20 20:29 Dose: 100 mls/hr Documented by: Morphine Sulfate (Morphine) Confirm Administered Dose 2 mg .ROUTE .STK-MED ONE Stop: 06/15/20 20:11 Last Admin: 06/16/20 04:31 Dose: Not Given Documented by: Morphine Sulfate (Morphine) 2 mg IVPUSH ONETIME ONE Stop: 06/15/20 20:01 Last Admin: 06/15/20 20:00 Dose: 2 mg Documented by: Thiamine HCl (Vitamin B-1) Confirm Administered Dose 200 mg .ROUTE .STK-MED ONE Stop: 06/17/20 19:38 Last Admin: 06/17/20 20:37 Dose: Not Given Documented by: Sepsis Event Note - Evaluation Sepsis Screening Result: No Definite Risk - Focused Exam Vital Signs: Vital Signs Temp Pulse Resp BP BP Pulse Ox 06/18/20 13:00 98.2 F 80 24 H 139/79 99 06/18/20 08:26 98.8 F 68 18 137/76 90 L 06/18/20 07:57 137/76 06/18/20 07:54 137/76 06/18/20 05:00 99.2 F 84 18 135/84 97 - Problem List Review Problem List Initiated/Reviewed/Updated: Yes - Plan Plan:: Patient to continue gentle hydration. Continue PT/OT F/u troponins as they are trending down. F/u labs and potassium for stabilization. Monitor neuro due to recent syncope for memory and right sided weakness. CIWAA protocol started. Last drink 3 days ago. Banana bag to be started. Cancerous skin lesion on scalp - referral to Dermatology outpatient. Recheck CK levels to monitor resolving Rhabdomyolysis. Hyponatremia resolved. Supplement magnesium.
[2020-06-18] MEDS ORDERED: Morphine 4 MG/ML VIAL IVPUSH ONE (15:01)
--- NOTE | 2020-06-18 15:01 | PCM.SN.2 ---
- Free Text/Narrative Note: RR remains increased at 36, patient denies any SOB, will treat with IV morphine. WBC decreased from admission, but remains slightly elevated. UA sent.
--- NOTE | 2020-06-18 16:52 | PCM.SN.2 ---
- Free Text/Narrative Note: PAtient sleeping, respirations 24.
[2020-06-18] MEDS: cefTRIAXone 1 GM in Sodium Chloride 0.9% 50 ML IV SCH (17:52)
[2020-06-19] MEDS: Albuterol/Ipratropium 3.0-0.5 MG/3 ML Neb Soln NEB SCH ×7 (02:07→23:18)
[2020-06-19] MEDS: Lisinopril 10 MG Tab PO SCH (07:37)
[2020-06-19] MEDS: amLODIPine 5 MG Tab PO SCH (07:38)
[2020-06-19] MEDS: Aspirin 81 MG Tab.EC PO SCH (07:38)
[2020-06-19] MEDS: Spironolactone 25 MG Tab PO SCH (07:38)
[2020-06-19] MEDS: Potassium Chloride 20 MEQ Tab.ER PO SCH ×3 (07:38→19:42)
[2020-06-19] MEDS: Formoterol/Mometasone 200-5 MCG 8.8 GM Inhaler IH SCH ×2 (08:00→19:44)
[2020-06-19] MEDS: cefTRIAXone 1 GM in Sodium Chloride 0.9% 50 ML IV SCH (19:04)
[2020-06-20] MEDS: Albuterol/Ipratropium 3.0-0.5 MG/3 ML Neb Soln NEB SCH ×6 (03:22→23:53)
[2020-06-20] MEDS: Aspirin 81 MG Tab.EC PO SCH (07:43)
[2020-06-20] MEDS: Lisinopril 10 MG Tab PO SCH (07:43)
[2020-06-20] MEDS: Spironolactone 25 MG Tab PO SCH (07:43)
[2020-06-20] MEDS: amLODIPine 5 MG Tab PO SCH (07:44)
[2020-06-20] MEDS: Formoterol/Mometasone 200-5 MCG 8.8 GM Inhaler IH SCH ×3 (07:44→19:08)
[2020-06-20] MEDS ORDERED: traMADol 50 MG Tab PO PRN (11:17)
[2020-06-20] MEDS: cefTRIAXone 1 GM in Sodium Chloride 0.9% 50 ML IV SCH (18:04)
[2020-06-21] MEDS: Albuterol/Ipratropium 3.0-0.5 MG/3 ML Neb Soln NEB SCH ×3 (05:09→11:44)
[2020-06-21] MEDS: Formoterol/Mometasone 200-5 MCG 8.8 GM Inhaler IH SCH (07:33)
[2020-06-21] MEDS: Spironolactone 25 MG Tab PO SCH (07:34)
[2020-06-21] MEDS: Aspirin 81 MG Tab.EC PO SCH (07:34)
[2020-06-21] MEDS: amLODIPine 5 MG Tab PO SCH (07:34)
[2020-06-21] MEDS: Lisinopril 10 MG Tab PO SCH (07:34)
--- NOTE | 2020-06-21 08:56 | PN ---
DATE OF VISIT: 06/19/2020 SUBJECTIVE: I have been asked to assume the care of this gentleman. His history was reviewed. He was admitted with pneumonia, but then started on Rocephin yesterday for UTI. Overall, he states that he feels fine and denies any shortness of breath. He offers no complaints at this time. OBJECTIVE: VITAL SIGNS: His blood pressure is 148/87, heart rate is 82. He is afebrile, O2 sats 95%. Chest - few scattered rhonchi IMPRESSION: Stable at this time. He was given Lasix yesterday and diuresed a fair amount. PLAN: We will continue to monitor him. I will check a repeat chest x-ray on Sunday morning. JERRELL/JUSTINA /[id number] [place]IN[place]
--- NOTE | 2020-06-21 09:02 | PN ---
DATE OF VISIT: 06/20/2020 Mr. Real remains about the same. He does have periods of tachypnea, but his O2 saturations have been good. 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 Nursing has noticed some bruising in his right flank area. This may be related to the fall he experienced a few days ago. He continues on his Rocephin. His chest sounds are better than yesterday. He seems to be aerating his lower lung sweet better. PLAN: We will start him on some tramadol p.r.n. for this discomfort. I am going to go ahead and check a CMP and a CBC tomorrow and a PT/INR because of the ecchymosis in his right flank. I will also get a look at his platelet count. He does seem to have a tendency toward easy bruising. All questions were answered. He agrees with this plan. JERRELL/JUSTINA /[id number]
--- NOTE | 2020-06-21 09:02 | CR ---
Date of Service: 06/21/20 Clinical Data: recheck AP CHEST: No priors. The heart size is within normal limits. There is a cardiac pacer overlying the left chest and the distal pacer wires are in the region of the right atrium and right ventricle. There is calcification of the aortic arch. The pulmonary vasculature appears prominent with cephalization of flow consistent with pulmonary venous congestion. There are interstitial infiltrates throughout both lungs most likely representing interstitial edema. There is atelectasis and consolidation in the right lung base. Pneumonia should be considered. There is blunting of the right costophrenic angle consistent with a right pleural effusion. There is subtle increased density in the left lung base consistent with basilar atelectasis or infiltrate. No other significant findings. No pneumothorax. [id number] [facility]
--- NOTE | 2020-06-21 13:40 | PN ---
DATE OF VISIT: 06/21/2020 SUBJECTIVE: Mr. Real feels well today. His vital signs remained stable. He is oxygenating well. A dressing has been applied which is a bulky dressing that will hopefully provide some padding and comfort to the lesion on the back of his occipital scalp. OBJECTIVE: CHEST: On examination, his chest is clear to auscultation. LABORATORY DATA: Laboratory shows his electrolytes are normal. He is not anemic. His PT, INR are all normal. PLAN: I spoke to Dr. Shah about him this morning. JERRELL/JUSTINA /[id number]
[2020-06-21 13:42] VITALS: BP 138/81
--- NOTE | 2020-06-21 14:13 | PCM.DCSUM1 ---
Discharge Summary - Hospital Course Modified [place] Scale: Mod.Sev.Disability ;Unable to Walk/Attend Bodily Needs W/O Assistance Modified [place] Scale Score: 4 - Discharge Data Discharge Date: 06/21/20 Discharge Disposition: DC/Tfer W/I Hosp To Swing 61 Condition: Poor - Referral to Home Health Primary Care Physician: PCP None - Discharge Diagnosis/Problem(s) (1) Hypokalemia SNOMED Code(s): 22319376 ICD Code: E87.6 - HYPOKALEMIA Status: Acute Priority: High (2) Syncope and collapse SNOMED Code(s): 421777061 ICD Code: R55 - SYNCOPE AND COLLAPSE Status: Acute Priority: High (3) Weakness SNOMED Code(s): 81295197 ICD Code: R53.1 - WEAKNESS Status: Acute Priority: High Problem Details: Possible CVA like symptoms but Ct head negative and MRI unable to be done due to pacemaker (4) Basal cell carcinoma (BCC) in situ of skin SNOMED Code(s): 04885492421108 ICD Code: D04.9 - CARCINOMA IN SITU OF SKIN, UNSPECIFIED Status: Chronic Priority: High Problem Details: Large area [id number] of the posterior scalp that has been present for a long time per patient. (5) Hyponatremia SNOMED Code(s): 91520223 ICD Code: E87.1 - HYPO-OSMOLALITY AND HYPONATREMIA Status: Acute Problem Details: 01/19/2015 Increased IV fluids to 75mg daily. (6) Hypomagnesemia SNOMED Code(s): 807698165 ICD Code: E83.42 - HYPOMAGNESEMIA Status: Acute Priority: High (7) Elevated creatine kinase level Status: Acute Priority: High (8) Rhabdomyolysis SNOMED Code(s): 002271388 ICD Code: M62.82 - RHABDOMYOLYSIS Status: Acute Priority: High - Patient Summary/Data Consults: Consultations 06/16/20 20:00 PT Evaluation and Treatment [CONS] Routine Please Evaluate and Treat. PT Reason for Consult: Wound Care Special Instructions: Posterior head wound This query below is only for informational purposes and is not editable. Admission Diagnosis/Problem: Elevated troponin level 06/17/20 10:42 PT Evaluation and Treatment [CONS] Routine Please Evaluate and Treat. PT Reason for Consult: Strengthening This query below is only for informational purposes and is not editable. Admission Diagnosis/Problem: Elevated troponin level 06/17/20 10:44 OT Evaluation and Treatment [CONS] Routine Please Evaluate and Treat. OT Reason for Consult: Strengthening This query below is only for informational purposes and is not editable. Admission Diagnosis/Problem: Elevated troponin level - Patient Instructions Diet: Usual Diet as Tolerated Activity: As Tolerated - Discharge Plan Home Medications: Home Meds Aspirin [Halfprin] 81 mg PO DAILY 01/18/15 [History] Lisinopril 10 mg PO DAILY 01/18/15 [History] Albuterol/Ipratropium [DuoNeb 3.0-0.5 MG/3 ML] 3 ml NEB Q4H neb 01/21/15 [Rx] Spironolactone [Aldactone] 25 mg PO DAILY 01/31/16 [History] amLODIPine [Norvasc] 5 mg PO DAILY 01/31/16 [History] atorvaSTATin Calcium [Atorvastatin Calcium] 20 mg PO QPM 01/31/16 [History] Mometasone/Formoterol [Dulera 200 Mcg/5 Mcg Inhaler] 2 puff IH BID 06/21/20 [History] traMADol [Ultram] 50 mg PO Q6H PRN 06/21/20 [History] Forms: ED Department Discharge Referrals: PCP,None [Primary Care Provider] - - Discharge Summary/Plan Comment DC Time >30 min.: No Discharge Summary/Plan Comment: Patient to be transferred to swing bed for rehabilitation due to recent rhabomyolysis and severe muscular deconditioning. His Creatinine kinase has normalized, and troponins have consistently trended down. F/u labs as needed in Swing. Follow up outpatient derm for likely large SCC lesion of the scalp. - Patient Data Vitals - Most Recent: Last Vital Signs Temp 37.0 C 06/21/20 13:00 Pulse 96 06/21/20 13:00 Resp 20 06/21/20 13:00 BP 138/81 06/21/20 13:00 Pulse Ox 97 06/21/20 13:00 Weight - Most Recent: 83.518 kg I&O - Last 24 hours: Intake & Output 06/20/20 06/21/20 06/21/20 22:59 06:59 14:59 Intake Total 880 350 Output Total 1000 450 Balance -120 -100 Lab Results - Last 24 hrs: Laboratory Results - last 24 hr 06/21/20 06/21/20 06/21/20 Range/Units 07:00 07:00 07:15 WBC 10.4 (4.0-11.0) K/uL RBC 4.61 (4.50-6.50) M/uL Hgb 12.2 L (13.0-18.0) g/dL Hct 38.3 L (40.0-54.0) % MCV 83 (76-96) fL MCH 26.5 L (27.0-32.0) pg MCHC 31.9 (31.0-35.0) g/dL RDW 18.0 H (11.0-16.0) % Plt Count 349 D (150-400) K/uL MPV 8.2 (6.0-10.0) fL Neut % (Auto) 77.3 H (45.0-70.0) % Lymph % (Auto) 8.8 L (20.0-40.0) % [place] % (Auto) 12.2 H (3.0-10.0) % Eos % (Auto) 1.5 (1.0-5.0) % Baso % (Auto) 0.2 (0.0-0.5) % Neut # (Auto) 8.07 H (2.00-7.50) K/uL Lymph # (Auto) 0.92 L (1.50-4.00) K/uL [place] # (Auto) 1.27 H (0.20-0.80) K/uL Eos # (Auto) 0.16 (0.04-0.40) K/uL Baso # (Auto) 0.02 (0.02-0.10) K/uL PT 10.8 (9.0-11.5) sec INR 1.1 (1.0-3.5) Sodium (136-145) mmol/L Potassium (3.5-5.1) mmol/L Chloride (98-107) mmol/L Carbon Dioxide (21.0-32.0) mmol/L Anion Gap (5.0-15.0) mmol/L BUN (8-26) mg/dL Creatinine (0.70-1.30) mg/dL Est Cr Clr Drug Dosing mL/min Estimated GFR (MDRD) (>60) MLS/MIN BUN/Creatinine Ratio (6-25) Glucose (74-100) mg/dL Calcium (8.5-10.1) mg/dL Total Bilirubin (0.0-1.0) mg/dL AST (15-37) U/L ALT (12-78) U/L Alkaline Phosphatase (46-116) U/L Troponin I 0.088 H* D (0.000-0.060) ng/mL Total Protein (6.4-8.2) g/dL Albumin (3.4-5.0) g/dL Globulin (2.2-4.2) g/dL Albumin/Globulin Ratio (0.8-2.0) 06/21/20 Range/Units 07:15 WBC (4.0-11.0) K/uL RBC (4.50-6.50) M/uL Hgb (13.0-18.0) g/dL Hct (40.0-54.0) % MCV (76-96) fL MCH (27.0-32.0) pg MCHC (31.0-35.0) g/dL RDW (11.0-16.0) % Plt Count (150-400) K/uL MPV (6.0-10.0) fL Neut % (Auto) (45.0-70.0) % Lymph % (Auto) (20.0-40.0) % [place] % (Auto) (3.0-10.0) % Eos % (Auto) (1.0-5.0) % Baso % (Auto) (0.0-0.5) % Neut # (Auto) (2.00-7.50) K/uL Lymph # (Auto) (1.50-4.00) K/uL [place] # (Auto) (0.20-0.80) K/uL Eos # (Auto) (0.04-0.40) K/uL Baso # (Auto) (0.02-0.10) K/uL PT (9.0-11.5) sec INR (1.0-3.5) Sodium 138 (136-145) mmol/L Potassium 5.0 D (3.5-5.1) mmol/L Chloride 103 (98-107) mmol/L Carbon Dioxide 28.4 (21.0-32.0) mmol/L Anion Gap 11.6 (5.0-15.0) mmol/L BUN 14 D (8-26) mg/dL Creatinine 0.82 (0.70-1.30) mg/dL Est Cr Clr Drug Dosing 71.71 mL/min Estimated GFR (MDRD) > 60 (>60) MLS/MIN BUN/Creatinine Ratio 17.1 (6-25) Glucose 91 (74-100) mg/dL Calcium 8.2 L (8.5-10.1) mg/dL Total Bilirubin 1.5 H (0.0-1.0) mg/dL AST 149 H (15-37) U/L ALT 125 H (12-78) U/L Alkaline Phosphatase 142 H (46-116) U/L Troponin I (0.000-0.060) ng/mL Total Protein 6.8 (6.4-8.2) g/dL Albumin 2.3 L (3.4-5.0) g/dL Globulin 4.5 H (2.2-4.2) g/dL Albumin/Globulin Ratio 0.5 L (0.8-2.0) TREMAYNE Results - Last 24 hrs: Microbiology 06/18/20 14:49 Urine Culture - Final Urine, Voided No Growth Med Orders - Current: Current Medications Albuterol/Ipratropium (Duoneb 3.0-0.5 Mg/3 Ml) 3 ml NEB Q4H [facility] Last Admin: 06/21/20 11:44 Dose: 3 ml Documented by: Amlodipine Besylate (Norvasc) 5 mg PO DAILY [facility] Last Admin: 06/21/20 07:34 Dose: 5 mg Documented by: Aspirin (Halfprin) 81 mg PO DAILY [facility] Last Admin: 06/21/20 07:34 Dose: 81 mg Documented by: Ceftriaxone Sodium 1 gm/ (Sodium Chloride) 50 mls @ 200 mls/hr IV Q24H [facility] Last Admin: 06/20/20 18:04 Dose: 200 mls/hr Documented by: Lisinopril (Prinivil) 10 mg PO DAILY [facility] Last Admin: 06/21/20 07:34 Dose: 10 mg Documented by: Lorazepam (Ativan) 0.5 mg IVPUSH Q4H PRN PRN Reason: Agitation Last Admin: 06/16/20 03:18 Dose: 0.5 mg Documented by: Mometasone Furoate/Formoterol Fumar (Dulera 200-5 Mcg) 2 puff IH BID [facility] Last Admin: 06/21/20 07:33 Dose: 2 puff Documented by: Sodium Chloride (Saline Flush) 10 ml FLUSH SEECOMMENT PRN PRN Reason: Keep Vein Open Last Admin: 06/17/20 20:30 Dose: 10 ml Documented by: Spironolactone (Aldactone) 25 mg PO DAILY [facility] Last Admin: 06/21/20 07:34 Dose: 25 mg Documented by: Tramadol HCl (Ultram) 50 mg PO Q6H PRN PRN Reason: leg pain Discontinued Medications Albuterol/Ipratropium (Duoneb 3.0-0.5 Mg/3 Ml) Confirm Administered Dose 3 ml .ROUTE .STK-MED ONE Stop: 06/15/20 19:42 Last Admin: 06/15/20 23:39 Dose: Not Given Documented by: Cefazolin Sodium (Ancef) Confirm Administered Dose 1 gm .ROUTE .STK-MED ONE Stop: 06/15/20 22:26 Last Admin: 06/16/20 00:00 Dose: Not Given Documented by: Diltiazem HCl (Diltiazem) 20 mg IVPUSH ONETIME ONE Stop: 06/15/20 20:26 Last Admin: 06/15/20 21:59 Dose: 20 mg Documented by: Furosemide (Lasix) 40 mg IVPUSH NOW ONE Stop: 06/15/20 23:26 Last Admin: 06/15/20 23:54 Dose: 40 mg Documented by: Furosemide (Lasix) 40 mg IVPUSH NOW ONE Stop: 06/18/20 11:15 Last Admin: 06/18/20 11:22 Dose: 40 mg Documented by: Potassium Chloride/Sodium Chloride (Normal Saline With 40 Meq Kcl) 1,000 mls @ 250 mls/hr IV ASDIRECTED [facility] Last Infusion: 06/15/20 23:05 Dose: 125 mls/hr Documented by: Potassium Chloride/Dextrose/Sod Cl (D5 1/2 Ns W/ 40 Meq/L Kcl) Confirm Administered Dose 1,000 mls @ as directed .ROUTE .STK-MED ONE Stop: 06/15/20 20:39 Last Admin: 06/16/20 00:12 Dose: Not Given Documented by: Cefazolin Sodium 1 gm/ Sodium (Chloride) 50 mls @ 200 mls/hr IV ONETIME ONE Stop: 06/15/20 22:00 Last Admin: 06/16/20 00:01 Dose: 200 mls/hr Documented by: Azithromycin 500 mg/ Sodium (Chloride) 250 mls @ 250 mls/hr IV ONETIME ONE Stop: 06/15/20 22:46 Last Admin: 06/16/20 00:24 Dose: 250 mls/hr Documented by: Potassium Chloride/Sodium Chloride (Normal Saline With 40 Meq Kcl) 1,000 mls @ 100 mls/hr IV ASDIRECTED [facility] Stop: 06/16/20 22:14 Last Admin: 06/16/20 13:50 Dose: 100 mls/hr Documented by: Multivitamins/Minerals 10 ml/Thiamine HCl 100 mg/ Folic Acid 1 mg/ Magnesium Sulfate 3 gm/ Sodium Chloride 1,017.2 mls @ 100 mls/hr IV ASDIRECTED [facility] Stop: 06/18/20 03:26 Last Admin: 06/17/20 20:29 Dose: 100 mls/hr Documented by: Morphine Sulfate (Morphine) Confirm Administered Dose 2 mg .ROUTE .STK-MED ONE Stop: 06/15/20 20:11 Last Admin: 06/16/20 04:31 Dose: Not Given Documented by: Morphine Sulfate (Morphine) 2 mg IVPUSH ONETIME ONE Stop: 06/15/20 20:01 Last Admin: 06/15/20 20:00 Dose: 2 mg Documented by: Morphine Sulfate (Morphine) 4 mg IVPUSH ONETIME ONE Stop: 06/18/20 15:02 Last Admin: 06/18/20 15:20 Dose: 4 mg Documented by: Potassium Chloride (Klor-Con M20) 20 meq PO TID [facility] Stop: 06/19/20 20:01 Last Admin: 06/19/20 19:42 Dose: 20 meq Documented by: Thiamine HCl (Vitamin B-1) Confirm Administered Dose 200 mg .ROUTE .STK-MED ONE Stop: 06/17/20 19:38 Last Admin: 06/17/20 20:37 Dose: Not Given Documented by:
[2020-06-21 15:04] VITALS: PULSE 85
== END 2020-06-21 14:40 | disposition swing bed (61) | DRG 291 ==
LOC: LB.ED 19:08 → UNDOADMIN 22:30 → LB.MS 22:30
PROVIDERS: ADMIT Physician Assistant; ATTEND Physician Assistant
DX: I50.9 Heart failure, unspecified (principal); R79.89 Other specified abnormal findings of blood chemistry; J18.9 Pneumonia, unspecified organism; M62.82 Rhabdomyolysis; E87.1 Hypo-osmolality and hyponatremia; E46 Unspecified protein-calorie malnutrition; E87.6 Hypokalemia; R46.0 Very low level of personal hygiene; D04.9 Carcinoma in situ of skin, unspecified; Z20.828 Contact with and (suspected) exposure to other viral communicable diseases; E83.42 Hypomagnesemia; Z79.82 Long term (current) use of aspirin; Z79.899 Other long term (current) drug therapy; I48.91 Unspecified atrial fibrillation; I25.10 Atherosclerotic heart disease of native coronary artery without angina pectoris; E78.5 Hyperlipidemia, unspecified; S40.011A Contusion of right shoulder, initial encounter; S00.83XA Contusion of other part of head, initial encounter; W19.XXXA Unspecified fall, initial encounter
CPT/HCPCS: 36415; 70450; 71250; 74176; 80053; 83605; 83880; 84484; 85025; 85610; 93005; J2270; J3480; J3490; U0002; 51701; 51702; 71046; 80048; 81001; 82550; 83735; 87086; 97110-GP; 97116-GP; 97161-GP; 97165-GO; 97530-GP; 97535-GO; A9270-GY; J0456; J0690; J0696; J1940; J2060; J3411; J3475; J7030; J7050; J7620-GY

== ENCOUNTER 2020-06-21 09:27 | Inpatient (IN) | payer MEDICARE ==
[2020-06-21] MEDS ORDERED: Tuberculin, PPD 5 Units/0.1 ML 1 ML MDV IDERM ONE (14:13)
--- NOTE | 2020-06-21 14:15 | PCM.HP.2 ---
H&P History of Present Illness - General Date of Service: 06/21/20 Admit Problem/Dx: Admission Diagnosis/Problem Admission Diagnosis/Problem Weakness Source of Information: Patient History Limitations: Reports: No Limitations - History of Present Illness Initial Comments - Free Text/Narative: This is an 80yo M who was found lying on the floor for an unknown time period. He was admitted for CHF, elevated troponins, Rhabdomyolysis and severe muscular deconditioning among other diagnoses. He has improved and now requiring Physical/Occupational therapy for rehabilitation of his ADL and strength to ambulate. Duration of Symptoms: Reports: Constant Location: Reports: Generalized Improves with: Reports: None Associated Symptoms: Reports: No Other Symptoms - Related Data Allergies/Adverse Reactions: Allergies Allergy/AdvReac Type Severity Reaction Status Date / Time No Known Allergies Allergy Verified 06/21/20 19:03 Home Medications: Home Meds Aspirin [Halfprin] 81 mg PO DAILY 01/18/15 [History] Lisinopril 10 mg PO DAILY 01/18/15 [History] Albuterol/Ipratropium [DuoNeb 3.0-0.5 MG/3 ML] 3 ml NEB Q4H neb 01/21/15 [Rx] Spironolactone [Aldactone] 25 mg PO DAILY 01/31/16 [History] amLODIPine [Norvasc] 5 mg PO DAILY 01/31/16 [History] atorvaSTATin Calcium [Atorvastatin Calcium] 20 mg PO QPM 01/31/16 [History] Mometasone/Formoterol [Dulera 200 Mcg/5 Mcg Inhaler] 2 puff IH BID 06/21/20 [H istory] traMADol [Ultram] 50 mg PO Q6H PRN 06/21/20 [History] Past Medical History HEENT History: Reports: Hard of Hearing, Impaired Vision Cardiovascular History: Reports: Afib, CAD, Heart Failure, Pacemaker Respiratory History: Reports: COPD Gastrointestinal History: Reports: GERD Musculoskeletal History: Reports: Osteoarthritis Hematologic History: Reports: Anticoagulation Therapy Oncologic (Cancer) History: Reports: Other (See Below) Other Oncologic History: hx of skin CA Dermatologic History: Reports: Melanoma, Other (See Below) Other Dermatologic History: hx of skin ca with CA removed from back lip nose and head - Past Surgical History HEENT Surgical History: Reports: Other (See Below) Musculoskeletal Surgical History: Reports: Hip Replacement Social & Family History - Family History Family Medical History: Noncontributory Cardiac: Reports: CAD, Pacemaker Respiratory: Reports: COPD GI: Reports: None : Reports: None Neurological: Reports: None Psychiatric: Reports: None Endocrine/Metabolic: Reports: None Hematologic: Reports: None Immunologic: Reports: None Oncologic: Reports: Skin - Caffeine Use Caffeine Use: Reports: Coffee - Living Situation & Occupation Living situation: Reports: Single Occupation: Retired H&P Review of Systems - Review of Systems: Review Of Systems: Comprehensive ROS is negative, except as noted in HPI. Exam - Exam Exam: See Below - Exam General: Alert, Oriented, Cooperative HEENT: PERRLA, Conjunctiva Clear, EACs Clear Neck: Supple, Trachea Midline Lungs: Clear to Auscultation, Normal Respiratory Effort Cardiovascular: Regular Rate, Regular Rhythm GI/Abdominal Exam: Normal Bowel Sounds, Soft, Non-Tender Back Exam: Normal Inspection Extremities: Normal Inspection Skin: Wound (scalp cancer lesion [id number]) Neuro Extensive - Mental Status: Alert, Oriented x3, Normal Mood/Affect, Normal Cognition, Memory Intact - Problem List (1) Elevated creatine kinase level Status: Acute Priority: High Current Visit: Yes (2) Hypokalemia SNOMED Code(s): 07893243 ICD Code: E87.6 - HYPOKALEMIA Status: Acute Priority: High Current Visit: Yes (3) Hypomagnesemia SNOMED Code(s): 195706166 ICD Code: E83.42 - HYPOMAGNESEMIA Status: Acute Priority: High Current Visit: Yes (4) Rhabdomyolysis SNOMED Code(s): 854335627 ICD Code: M62.82 - RHABDOMYOLYSIS Status: Acute Priority: High Current Visit: Yes (5) Syncope and collapse SNOMED Code(s): 513111071 ICD Code: R55 - SYNCOPE AND COLLAPSE Status: Acute Priority: High Current Visit: Yes (6) Basal cell carcinoma (BCC) in situ of skin SNOMED Code(s): 56729501663154 ICD Code: D04.9 - CARCINOMA IN SITU OF SKIN, UNSPECIFIED Status: Chronic Priority: High Current Visit: Yes Problem Details: Large area [id number] of the posterior scalp that has been present for a long time per patient. Problem List Initiated/Reviewed/Updated: Yes Orders Last 24hrs: Active Orders 24 hr Category Date Time Status Patient Status [ADT] Routine ADT 06/21/20 14:13 Active Consult to Curtain Cutter [CONS] Routine Cons 06/21/20 14:13 Active Consult to Home Health [CONS] Routine Cons 06/21/20 14:13 Active Consult to Infection Prevention [CONS] Routine Cons 06/21/20 14:13 Active OT Evaluation and Treatment [CONS] Routine Cons 06/21/20 14:13 Active PT Evaluation and Treatment [CONS] Routine Cons 06/21/20 14:13 Active Tuberculin, PPD [AplisoL] Med 06/21/20 14:13 Once 5 unit IDERM ONETIME ONE Medication Orders Tuberculin PPD (Aplisol) 5 unit IDERM ONETIME ONE Stop: 06/21/20 14:14 Assessment/Plan Comment:: Patient to be admitted to swing bed fro rehabilitation and management of his weakness/deconditioning. We will continue to monitor labs as needed.
[2020-06-21] MEDS ORDERED: Albuterol/Ipratropium 3.0-0.5 MG/3 ML Neb Soln ONE (15:30)
[2020-06-21] MEDS: Albuterol/Ipratropium 3.0-0.5 MG/3 ML Neb Soln NEB SCH ×2 (17:13→19:56)
[2020-06-21] MEDS ORDERED: Cephalexin 500 MG Cap PO ONE (18:00)
[2020-06-21] MEDS: Cephalexin 500 MG Cap PO SCH (18:30)
[2020-06-21] MEDS: atorvaSTATin 20 MG Tab PO SCH (19:56)
[2020-06-21] MEDS: Formoterol/Mometasone 200-5 MCG 8.8 GM Inhaler IH SCH (19:57)
[2020-06-22] MEDS: Albuterol/Ipratropium 3.0-0.5 MG/3 ML Neb Soln NEB SCH ×6 (00:28→19:56)
[2020-06-22] MEDS: Cephalexin 500 MG Cap PO SCH ×4 (00:28→17:15)
[2020-06-22] MEDS: Omeprazole 20 MG Cap.CR PO SCH (06:17)
[2020-06-22] MEDS: Aspirin 81 MG Tab.EC PO SCH (08:16)
[2020-06-22] MEDS: Lisinopril 10 MG Tab PO SCH (08:16)
[2020-06-22] MEDS: amLODIPine 5 MG Tab PO SCH (08:16)
[2020-06-22] MEDS: Spironolactone 25 MG Tab PO SCH (08:16)
[2020-06-22] MEDS: Formoterol/Mometasone 200-5 MCG 8.8 GM Inhaler IH SCH ×2 (08:17→19:57)
[2020-06-22] MEDS ORDERED: FLU Vacc QV2020-21(65YR UP)/PF 240 MCG/0.7 ML Syringe IM ONE (10:00)
[2020-06-22] MEDS: atorvaSTATin 20 MG Tab PO SCH (19:57)
[2020-06-23] MEDS: Albuterol/Ipratropium 3.0-0.5 MG/3 ML Neb Soln NEB SCH ×6 (00:19→19:48)
[2020-06-23] MEDS: Cephalexin 500 MG Cap PO SCH ×4 (00:19→17:43)
[2020-06-23] MEDS: LORazepam 0.5 MG Tab PO PRN (02:08)
[2020-06-23] MEDS: Spironolactone 25 MG Tab PO SCH (08:27)
[2020-06-23] MEDS: Omeprazole 20 MG Cap.CR PO SCH (08:27)
[2020-06-23] MEDS: amLODIPine 5 MG Tab PO SCH (08:27)
[2020-06-23] MEDS: Lisinopril 10 MG Tab PO SCH (08:27)
[2020-06-23] MEDS: Aspirin 81 MG Tab.EC PO SCH (08:28)
[2020-06-23] MEDS: Formoterol/Mometasone 200-5 MCG 8.8 GM Inhaler IH SCH ×2 (08:31→19:48)
[2020-06-23] MEDS: atorvaSTATin 20 MG Tab PO SCH (19:48)
[2020-06-23] MEDS: traMADol 50 MG Tab PO PRN (21:54)
[2020-06-24] MEDS: LORazepam 0.5 MG Tab PO PRN (00:28)
[2020-06-24] MEDS: Albuterol/Ipratropium 3.0-0.5 MG/3 ML Neb Soln NEB SCH ×6 (00:28→20:02)
[2020-06-24] MEDS: Cephalexin 500 MG Cap PO SCH ×4 (00:28→18:17)
[2020-06-24] MEDS: amLODIPine 5 MG Tab PO SCH (07:35)
[2020-06-24] MEDS: Lisinopril 10 MG Tab PO SCH (07:35)
[2020-06-24] MEDS: Spironolactone 25 MG Tab PO SCH (07:35)
[2020-06-24] MEDS: Aspirin 81 MG Tab.EC PO SCH (07:36)
[2020-06-24] MEDS: Omeprazole 20 MG Cap.CR PO SCH (07:36)
[2020-06-24] MEDS: Formoterol/Mometasone 200-5 MCG 8.8 GM Inhaler IH SCH ×2 (14:36→19:27)
[2020-06-24] MEDS ORDERED: diphenhydrAMINE 50 MG Cap PO PRN (18:19)
[2020-06-24] MEDS: atorvaSTATin 20 MG Tab PO SCH (19:27)
[2020-06-25] MEDS: Albuterol/Ipratropium 3.0-0.5 MG/3 ML Neb Soln NEB SCH ×7 (03:46→23:45)
[2020-06-25] MEDS: Cephalexin 500 MG Cap PO SCH ×5 (03:51→23:45)
[2020-06-25] MEDS: Omeprazole 20 MG Cap.CR PO SCH (07:16)
[2020-06-25] MEDS: amLODIPine 5 MG Tab PO SCH (08:12)
[2020-06-25] MEDS: Lisinopril 10 MG Tab PO SCH (08:13)
[2020-06-25] MEDS: Spironolactone 25 MG Tab PO SCH (08:13)
[2020-06-25] MEDS: Aspirin 81 MG Tab.EC PO SCH (08:13)
[2020-06-25] MEDS: Formoterol/Mometasone 200-5 MCG 8.8 GM Inhaler IH SCH ×2 (08:14→20:04)
[2020-06-25] MEDS: traMADol 50 MG Tab PO PRN (11:00)
[2020-06-25] MEDS ORDERED: Polyethylene Glycol 3350 Powder 17 GM Packet PO PRN (11:18)
[2020-06-25] MEDS: atorvaSTATin 20 MG Tab PO SCH (20:04)
[2020-06-25] MEDS: LORazepam 0.5 MG Tab PO PRN (23:44)
[2020-06-26] MEDS: Albuterol/Ipratropium 3.0-0.5 MG/3 ML Neb Soln NEB SCH ×6 (04:39→23:29)
[2020-06-26] MEDS: Cephalexin 500 MG Cap PO SCH ×4 (06:24→23:29)
[2020-06-26] MEDS: Omeprazole 20 MG Cap.CR PO SCH (06:24)
[2020-06-26] MEDS: Spironolactone 25 MG Tab PO SCH (07:41)
[2020-06-26] MEDS: Lisinopril 10 MG Tab PO SCH (07:41)
[2020-06-26] MEDS: amLODIPine 5 MG Tab PO SCH (07:41)
[2020-06-26] MEDS: Aspirin 81 MG Tab.EC PO SCH (07:43)
[2020-06-26] MEDS: Formoterol/Mometasone 200-5 MCG 8.8 GM Inhaler IH SCH ×2 (07:43→19:46)
[2020-06-26] MEDS: atorvaSTATin 20 MG Tab PO SCH (19:46)
[2020-06-26] MEDS: LORazepam 0.5 MG Tab PO PRN (23:32)
[2020-06-27] MEDS: Albuterol/Ipratropium 3.0-0.5 MG/3 ML Neb Soln NEB SCH ×6 (05:45→23:30)
[2020-06-27] MEDS: Omeprazole 20 MG Cap.CR PO SCH (06:31)
[2020-06-27] MEDS: Cephalexin 500 MG Cap PO SCH ×3 (06:31→17:55)
[2020-06-27] MEDS: Aspirin 81 MG Tab.EC PO SCH (07:26)
[2020-06-27] MEDS: amLODIPine 5 MG Tab PO SCH (07:26)
[2020-06-27] MEDS: Spironolactone 25 MG Tab PO SCH (07:26)
[2020-06-27] MEDS: Lisinopril 10 MG Tab PO SCH (07:27)
[2020-06-27] MEDS: Formoterol/Mometasone 200-5 MCG 8.8 GM Inhaler IH SCH ×2 (08:30→19:46)
[2020-06-27] MEDS ORDERED: Lidocaine 2% Jelly 5 ML Urojet ONE (12:54)
[2020-06-27] MEDS ORDERED: Lidocaine 2% Jelly 5 ML Urojet MUCMEM ONE (12:56)
[2020-06-27] MEDS: atorvaSTATin 20 MG Tab PO SCH (19:43)
[2020-06-27] MEDS: LORazepam 0.5 MG Tab PO PRN (19:44)
[2020-06-27] MEDS: Melatonin 3 MG Tab PO PRN (19:44)
[2020-06-28] MEDS: Cephalexin 500 MG Cap PO SCH ×3 (00:04→12:49)
[2020-06-28] MEDS: Albuterol/Ipratropium 3.0-0.5 MG/3 ML Neb Soln NEB SCH ×5 (04:56→19:32)
[2020-06-28] MEDS: Omeprazole 20 MG Cap.CR PO SCH (06:38)
[2020-06-28] MEDS: amLODIPine 5 MG Tab PO SCH (08:01)
[2020-06-28] MEDS: Aspirin 81 MG Tab.EC PO SCH (08:01)
[2020-06-28] MEDS: Lisinopril 10 MG Tab PO SCH (08:01)
[2020-06-28] MEDS: Spironolactone 25 MG Tab PO SCH (08:02)
[2020-06-28] MEDS: Formoterol/Mometasone 200-5 MCG 8.8 GM Inhaler IH SCH ×2 (08:03→19:32)
--- NOTE | 2020-06-28 08:59 | PCM.PN ---
- General Info Date of Service: 06/28/20 Subjective Update: Patient notes improvement in strength. There are still concerns of needing improvement to get him to baseline and safely home. - Review of Systems General: Reports: Weakness HEENT: Reports: No Symptoms Pulmonary: Reports: No Symptoms Cardiovascular: Reports: No Symptoms Gastrointestinal: Reports: No Symptoms Genitourinary: Reports: Frequency Musculoskeletal: Reports: No Symptoms - Patient Data Vitals - Most Recent: Last Vital Signs Temp 36.6 C 06/27/20 19:52 Pulse 72 06/27/20 19:52 Resp 18 06/27/20 19:52 BP 139/83 06/28/20 08:01 Pulse Ox 97 06/27/20 19:52 Weight - Most Recent: 80.91 kg I&O - Last 24 Hours: Intake & Output 06/27/20 06/28/20 06/28/20 22:59 06:59 14:59 Intake Total 640 200 Output Total 300 675 Balance 340 -475 Med Orders - Current: Current Medications Albuterol/Ipratropium (Duoneb 3.0-0.5 Mg/3 Ml) 3 ml NEB Q4H [facility] Last Admin: 06/28/20 08:01 Dose: 3 ml Documented by: Amlodipine Besylate (Norvasc) 5 mg PO DAILY [facility] Last Admin: 06/28/20 08:01 Dose: 5 mg Documented by: Aspirin (Halfprin) 81 mg PO DAILY [facility] Last Admin: 06/28/20 08:01 Dose: 81 mg Documented by: Atorvastatin Calcium (Lipitor) 20 mg PO QPM [facility] Last Admin: 06/27/20 19:43 Dose: 20 mg Documented by: Cephalexin (Keflex) 500 mg PO Q6HR [facility] Last Admin: 06/28/20 06:38 Dose: 500 mg Documented by: Diphenhydramine HCl (Benadryl) 50 mg PO BEDTIME PRN PRN Reason: Insomnia Last Admin: 06/26/20 19:46 Dose: 50 mg Documented by: Lisinopril (Prinivil) 10 mg PO DAILY [facility] Last Admin: 06/28/20 08:01 Dose: 10 mg Documented by: Lorazepam (Ativan) 0.5 mg PO Q8H PRN PRN Reason: Anxiety Last Admin: 06/27/20 19:44 Dose: 0.5 mg Documented by: Melatonin (Melatonin) 6 mg PO BEDTIME PRN PRN Reason: Insomnia Last Admin: 06/27/20 19:44 Dose: 6 mg Documented by: Mometasone Furoate/Formoterol Fumar (Dulera 200-5 Mcg) 2 puff IH BID [facility] Last Admin: 06/28/20 08:03 Dose: 2 puff Documented by: Omeprazole (Omeprazole) 20 mg PO ACBREAKFAST [facility] Last Admin: 06/28/20 06:38 Dose: 20 mg Documented by: Polyethylene Glycol (Miralax) 17 gm PO DAILY PRN PRN Reason: Constipation Spironolactone (Aldactone) 25 mg PO DAILY [facility] Last Admin: 06/28/20 08:02 Dose: 25 mg Documented by: Tramadol HCl (Ultram) 50 mg PO Q6H PRN PRN Reason: Pain Last Admin: 06/25/20 11:00 Dose: 50 mg Documented by: Discontinued Medications Albuterol/Ipratropium (Duoneb 3.0-0.5 Mg/3 Ml) Confirm Administered Dose 3 ml .ROUTE .STK-MED ONE Stop: 06/21/20 15:31 Last Admin: 06/21/20 15:35 Dose: 3 ml Documented by: Cephalexin (Keflex) 500 mg PO ONETIME ONE Stop: 06/21/20 18:01 Influenza Virus Vaccine (Pharmacy To Dose - Influenza Vaccine) 1 each IM ONETIME ONE Stop: 06/22/20 10:01 Influenza Virus Vaccine (Fluzone High-Dose Quad 2020-21) 240 mcg IM .ONCE ONE Stop: 06/22/20 10:01 Last Admin: 06/22/20 15:52 Dose: 240 mcg Documented by: Lidocaine HCl (Xylocaine 2% Jelly) Confirm Administered Dose 5 ml .ROUTE .STK- MED ONE Stop: 06/27/20 12:55 Last Admin: 06/27/20 12:59 Dose: Not Given Documented by: Lidocaine HCl (Xylocaine 2% Jelly) 5 ml MUCMEM ONETIME ONE Stop: 06/27/20 12:57 Last Admin: 06/27/20 17:55 Dose: Not Given Documented by: Tuberculin PPD (Aplisol) 5 unit IDERM ONETIME ONE Stop: 06/21/20 14:14 Last Admin: 06/21/20 17:23 Dose: 5 unit Documented by: - Exam General: Alert, Cooperative HEENT: Pupils Equal, Pupils Reactive, EOMI Neck: Supple Lungs: Clear to Auscultation, Normal Respiratory Effort Cardiovascular: Regular Rate, Regular Rhythm GI/Abdominal Exam: Normal Bowel Sounds Extremities: Normal Inspection Peripheral Pulses: 2+: Dorsalis Pedis (L), Dorsalis Pedis (R) Neurological: No New Focal Deficit Psy/Mental Status: Alert, Normal Affect, Normal Mood Sepsis Event Note - Evaluation Sepsis Screening Result: No Definite Risk - Focused Exam Vital Signs: Vital Signs BP 06/28/20 08:01 139/83 - Problem List & Annotations (1) Elevated creatine kinase level Status: Acute Priority: High Current Visit: Yes (2) Hypokalemia SNOMED Code(s): 67324987 Code(s): E87.6 - HYPOKALEMIA Status: Acute Priority: High Current Visit: Yes (3) Hypomagnesemia SNOMED Code(s): 798243520 Code(s): E83.42 - HYPOMAGNESEMIA Status: Acute Priority: High Current Visit: Yes (4) Rhabdomyolysis SNOMED Code(s): 468858349 Code(s): M62.82 - RHABDOMYOLYSIS Status: Acute Priority: High Current Visit: Yes (5) Syncope and collapse SNOMED Code(s): 795600444 Code(s): R55 - SYNCOPE AND COLLAPSE Status: Acute Priority: High Current Visit: Yes (6) Basal cell carcinoma (BCC) in situ of skin SNOMED Code(s): 23921072905499 Code(s): D04.9 - CARCINOMA IN SITU OF SKIN, UNSPECIFIED Status: Chronic Priority: High Current Visit: Yes Annotation/Comment:: Large area 35p28bs of the posterior scalp that has been present for a long time per patient. - Problem List Review Problem List Initiated/Reviewed/Updated: Yes - My Orders Last 24 Hours: My Active Orders 06/28/20 Breakfast High Protein Diet [DIET] - Plan Plan:: Patient to be admitted to [facility] bed fro rehabilitation and management of his weakness/deconditioning. We will continue to monitor labs as needed. 06/28/20 Patient labs ordered today. F/u results and recheck liver enzymes, trop and BNP. Continue PT/OT and f/u progress for ADL's and ambulation/fall risk.
[2020-06-28] MEDS: Tamsulosin 0.4 MG Cap.ER PO SCH (10:51)
[2020-06-28] MEDS: atorvaSTATin 20 MG Tab PO SCH (19:31)
[2020-06-28] MEDS: Melatonin 3 MG Tab PO PRN (19:50)
[2020-06-29] MEDS: Albuterol/Ipratropium 3.0-0.5 MG/3 ML Neb Soln NEB SCH ×6 (02:16→20:24)
[2020-06-29] MEDS: Omeprazole 20 MG Cap.CR PO SCH (06:26)
[2020-06-29] MEDS: Lisinopril 10 MG Tab PO SCH (07:29)
[2020-06-29] MEDS: amLODIPine 5 MG Tab PO SCH (07:29)
[2020-06-29] MEDS: Aspirin 81 MG Tab.EC PO SCH (07:29)
[2020-06-29] MEDS: Spironolactone 25 MG Tab PO SCH (07:29)
[2020-06-29] MEDS: Formoterol/Mometasone 200-5 MCG 8.8 GM Inhaler IH SCH ×2 (07:30→20:24)
[2020-06-29] MEDS: Tamsulosin 0.4 MG Cap.ER PO SCH (10:43)
[2020-06-29] MEDS: atorvaSTATin 20 MG Tab PO SCH (20:24)
[2020-06-30] MEDS: Albuterol/Ipratropium 3.0-0.5 MG/3 ML Neb Soln NEB SCH ×6 (02:48→20:57)
[2020-06-30] MEDS: Aspirin 81 MG Tab.EC PO SCH (07:38)
[2020-06-30] MEDS: Omeprazole 20 MG Cap.CR PO SCH (07:39)
[2020-06-30] MEDS: Formoterol/Mometasone 200-5 MCG 8.8 GM Inhaler IH SCH ×2 (07:40→20:59)
[2020-06-30] MEDS: Lisinopril 10 MG Tab PO SCH (07:40)
[2020-06-30] MEDS: Spironolactone 25 MG Tab PO SCH (07:43)
[2020-06-30] MEDS: amLODIPine 5 MG Tab PO SCH (07:43)
[2020-06-30 07:46] VITALS: PULSE 94
[2020-06-30] MEDS: Tamsulosin 0.4 MG Cap.ER PO SCH (10:31)
[2020-06-30] MEDS: atorvaSTATin 20 MG Tab PO SCH (20:57)
[2020-07-01] MEDS: Spironolactone 25 MG Tab PO SCH (09:55)
[2020-07-01] MEDS: Albuterol/Ipratropium 3.0-0.5 MG/3 ML Neb Soln NEB SCH ×3 (09:55→17:22)
[2020-07-01] MEDS: Omeprazole 20 MG Cap.CR PO SCH (09:55)
[2020-07-01] MEDS: Formoterol/Mometasone 200-5 MCG 8.8 GM Inhaler IH SCH (09:55)
[2020-07-01] MEDS: Lisinopril 10 MG Tab PO SCH (09:56)
[2020-07-01] MEDS: Aspirin 81 MG Tab.EC PO SCH (09:56)
[2020-07-01] MEDS: amLODIPine 5 MG Tab PO SCH (09:56)
[2020-07-01] MEDS: Tamsulosin 0.4 MG Cap.ER PO SCH (10:08)
--- NOTE | 2020-07-01 14:12 | PCM.SN.2 ---
- Free Text/Narrative Note: Patient with large bloody stools. He denies any abdominal pain and rectal exam showed no outer or inner hemorrhoids with rectal exam. Abdominal exam soft, BS x 4, non-tender. CT scan and labs ordered. Patient with grossly stool occult positive. Patient had another large bloody bowel movement with BRB. Hgb decreased from 11.3 (06/28) to 9.[address] scan with suspicion for colitis. Abdominal exam continues to be unremarkable and patient with no nausea or vomiting. Call [place] and they do not have GI specialist. Called [facility] [facility] and they are on diversion. Will transfer to [place], [place] (accepting hospitalist is Dr. Uriostegui). Patient updated and agreeable to plan. His brother was called by nursing staff and updated.
--- NOTE | 2020-07-01 15:24 | CRLCT ---
DATE OF SERVICE: 07/01/2020 CLINICAL DATA: bloody stools Unenhanced abdomen and pelvic CT: Multi slice acquisition through the abdomen and pelvis without IV or oral contrast was performed. Comparison is made to a prior abdomen and pelvic CT dated 15 June 2020. There are persistent small bilateral pleural effusions. The right pleural effusion has increased from the prior exam. There is persistent atelectasis and consolidation in the right lung base. No pneumothorax. The heart remains mildly enlarged. No significant pericardial effusion. There are cardiac pacer wires noted. There is a moderate sized hiatal hernia. The unenhanced liver appears normal. The gallbladder appears normal. The spleen appears normal. The pancreas appears normal. The right and left adrenals appear normal. The right and left kidneys are stable. No hydronephrosis or hydroureter. The patient is status post bilateral total hip arthroplasty. This does produce significant beam hardening and streak artifact obscuring adjacent structures. The bladder is partially fluid filled. It is not adequately seen. There are scattered air-fluid levels throughout the ascending and transverse colon. It is not dilated. There are also few scattered air-fluid levels within the small bowel. No distended loops of small bowel. Enterocolitis should be considered. There is diverticulosis of the descending and sigmoid colon. No evidence of diverticulitis. There is persistent mild mural thickening throughout the sigmoid colon. This is probably related to chronic diverticular disease or lack of distension. Again colitis should be considered. No free air. No free fluid. No dilated loops of bowel. No adenopathy. There is a stable fat containing ventral hernia. There are multiple stable partial compression fractures in the lower thoracic and lumbar spine. MTDD
[2020-07-01 15:39] VITALS: BP 149/76
[2020-07-01] MEDS ORDERED: Pantoprazole 40 MG Vial ONE (16:31)
[2020-07-01] MEDS ORDERED: Pantoprazole 40 MG Vial IVPUSH SCH (17:00)
== END 2020-07-01 18:30 | DRG 948 ==
LOC: LB.MS 14:13
PROVIDERS: ADMIT Family Medicine; ATTEND Family Medicine
DX: R53.1 Weakness (principal); M62.82 Rhabdomyolysis; D04.9 Carcinoma in situ of skin, unspecified; E87.6 Hypokalemia; E83.42 Hypomagnesemia; R55 Syncope and collapse; H54.7 Unspecified visual loss; I48.91 Unspecified atrial fibrillation; H91.90 Unspecified hearing loss, unspecified ear; J44.9 Chronic obstructive pulmonary disease, unspecified; K21.9 Gastro-esophageal reflux disease without esophagitis; M19.90 Unspecified osteoarthritis, unspecified site; I50.9 Heart failure, unspecified; Z79.01 Long term (current) use of anticoagulants; Z95.0 Presence of cardiac pacemaker; Z79.82 Long term (current) use of aspirin; Z79.899 Other long term (current) drug therapy; Z23 Encounter for immunization
CPT/HCPCS: 36415; 51701; 51702; 74176; 80053; 83880; 84484; 85025; 86580; 90662; 97110-GO; 97110-GP; 97116-GP; 97164-GP; 97530-GO; 97530-GP; 97535-GO; 99305; 99308; 99315; A0425; A0429; A9270-GY; C9113; G0008; J7620-GY

== ENCOUNTER 2020-07-06 14:44 | Inpatient (IN) | payer MEDICARE ==
[~2020-07-06 14:44] MED LIST: Polyethylene Glycol 3350 Powder 17 GM Packet PO PRN
[2020-07-06] MEDS ORDERED: Tamsulosin 0.4 MG Cap.ER PO ONE (16:38)
[2020-07-06] MEDS ORDERED: traMADol 50 MG Tab PO SCH (17:00)
--- NOTE | 2020-07-06 17:08 | PCM.HP.2 ---
H&P History of Present Illness - General Date of Service: 07/06/20 Admit Problem/Dx: Admission Diagnosis/Problem Admission Diagnosis/Problem Weakness Source of Information: Old Records, RN Notes Reviewed History Limitations: Reports: Altered Mental Status - History of Present Illness Initial Comments - Free Text/Narative: This is a 80yo M being admitted to sub acute rehabilitation as swing bed for ADLs, strengthening and ambulation post CVA. He recently was transferred to [facility] due an acute GI bleed and now discharged back to our facility. He has some improved strength but remains frail and weak. He is off on the year but knows where he is at and his age. His cognition has improved. Location: Reports: Generalized Improves with: Reports: None Worsens with: Reports: Movement Associated Symptoms: Reports: Confusion, Weakness - Related Data Allergies/Adverse Reactions: Allergies Allergy/AdvReac Type Severity Reaction Status Date / Time No Known Allergies Allergy Verified 06/21/20 19:03 Home Medications: Home Meds Aspirin [Halfprin] 81 mg PO DAILY 01/18/15 [History] Lisinopril 10 mg PO DAILY 01/18/15 [History] Albuterol/Ipratropium [DuoNeb 3.0-0.5 MG/3 ML] 3 ml NEB Q4H neb 01/21/15 [Rx] Spironolactone [Aldactone] 25 mg PO DAILY 01/31/16 [History] amLODIPine [Norvasc] 5 mg PO DAILY 01/31/16 [History] atorvaSTATin Calcium [Atorvastatin Calcium] 20 mg PO QPM 01/31/16 [History] Mometasone/Formoterol [Dulera 200 Mcg/5 Mcg Inhaler] 2 puff IH BID 06/21/20 [History] traMADol [Ultram] 50 mg PO Q6H PRN 06/21/20 [History] Past Medical History HEENT History: Reports: Hard of Hearing, Impaired Vision Cardiovascular History: Reports: Afib, CAD, Heart Failure, Pacemaker Respiratory History: Reports: COPD Gastrointestinal History: Reports: GERD Musculoskeletal History: Reports: Osteoarthritis Endocrine/Metabolic History: Reports: Hypokalemia, Hypomagnesemia Hematologic History: Reports: Anticoagulation Therapy Oncologic (Cancer) History: Reports: Other (See Below) Other Oncologic History: hx of skin CA Dermatologic History: Reports: Melanoma, Other (See Below) Other Dermatologic History: hx of skin ca with CA removed from back lip nose and head - Infectious Disease History Infectious Disease History: Reports: Measles, Mumps Other Infectious Disease History: patient is unsure but states he might have had the measels and mumps and was the only one in his family that didn't get chicken pox - Past Surgical History Head Surgeries/Procedures: Reports: None HEENT Surgical History: Reports: Other (See Below) GI Surgical History: Reports: None Musculoskeletal Surgical History: Reports: Hip Replacement Social & Family History - Family History Family Medical History: Noncontributory Cardiac: Reports: CAD, Pacemaker Respiratory: Reports: COPD GI: Reports: None : Reports: None Neurological: Reports: None Psychiatric: Reports: None Endocrine/Metabolic: Reports: None Hematologic: Reports: None Immunologic: Reports: None Oncologic: Reports: Skin - Tobacco Use Tobacco Use Status *Q: Never Tobacco User Second Hand Smoke Exposure: No - Caffeine Use Caffeine Use: Reports: Coffee, Soda - Alcohol Use Days Per Week of Alcohol Use: 3 Number of Drinks Per Day: 3 Total Drinks Per Week: 9 - Recreational Drug Use Recreational Drug Use: No - Living Situation & Occupation Living situation: Reports: Single Occupation: Retired H&P Review of Systems - Review of Systems: Review Of Systems: Comprehensive ROS is negative, except as noted in HPI. Exam - Exam Exam: See Below - Vital Signs Vital Signs: Last Vital Signs Temp 36.6 C 07/06/20 15:35 Pulse 81 07/06/20 15:35 Resp 28 H 07/06/20 15:35 BP 141/77 H 07/06/20 15:35 Pulse Ox 95 07/06/20 15:35 Weight: 74.843 kg - Exam General: Alert, Cooperative HEENT: PERRLA, Conjunctiva Clear, EACs Clear Neck: Supple, Trachea Midline Lungs: Clear to Auscultation, Normal Respiratory Effort Cardiovascular: Regular Rate, Regular Rhythm Back Exam: Normal Inspection Extremities: Normal Inspection Skin: Wound (large cancerous lesion of the posterior apex of scalp [id number]) Neuro Extensive - Mental Status: Alert, Disorientation to Time Psychiatric: Alert, Normal Affect, Normal Mood Sepsis Event Note - Evaluation Sepsis Screening Result: No Definite Risk - Focused Exam Vital Signs: Vital Signs Temp Pulse Resp BP Pulse Ox 07/06/20 15:35 36.6 C 81 28 H 141/77 H 95 - Problem List (1) CVA (cerebral vascular accident) SNOMED Code(s): 487498076 ICD Code: I63.9 - CEREBRAL INFARCTION, UNSPECIFIED Status: Acute Current Visit: Yes (2) Severe muscle deconditioning SNOMED Code(s): 155483472 ICD Code: R29.898 - OTH SYMPTOMS AND SIGNS INVOLVING THE MUSCULOSKELETAL SYSTEM Status: Acute Current Visit: Yes (3) Rhabdomyolysis SNOMED Code(s): 647787864 ICD Code: M62.82 - RHABDOMYOLYSIS Status: Acute Priority: High Current Visit: No (4) Syncope and collapse SNOMED Code(s): 737833442 ICD Code: R55 - SYNCOPE AND COLLAPSE Status: Acute Priority: High Current Visit: No (5) Basal cell carcinoma (BCC) in situ of skin SNOMED Code(s): 05361304659270 ICD Code: D04.9 - CARCINOMA IN SITU OF SKIN, UNSPECIFIED Status: Chronic Priority: High Current Visit: No Problem Details: Large area [id number] of the posterior scalp that has been present for a long time per patient. Problem List Initiated/Reviewed/Updated: Yes Orders Last 24hrs: Active Orders 24 hr Category Date Time Status Admission Status [Patient Status] [ADT] Routine ADT 07/06/20 14:56 Active RT Aerosol Therapy [RC] ASDIRECTED Care 07/06/20 16:34 Active Albuterol/Ipratropium [DuoNeb 3.0-0.5 MG/3 ML] Med 07/06/20 16:31 Active 3 ml NEB Q4H PRN Aspirin [Ecotrin] Med 07/07/20 08:00 Active 325 mg PO DAILY LORazepam [Ativan] Med 07/06/20 16:36 Active 0.5 mg PO TID PRN Melatonin Med 07/06/20 16:26 Active 3 mg PO BEDTIME PRN Mometasone/Formoterol [Dulera 200-5 MCG] Med 07/06/20 16:45 Active 0 puff IH BID Omeprazole Med 07/06/20 20:00 Active 40 mg PO BEDTIME amLODIPine [Norvasc] Med 07/07/20 08:00 Active 5 mg PO DAILY atorvaSTATin [Lipitor] Med 07/06/20 20:00 Active 40 mg PO BEDTIME lisinopriL [Prinivil] Med 07/07/20 08:00 Active 10 mg PO DAILY polyethylene glycoL 3350 [MiraLAX] Med 07/06/20 08:00 Active 17 gm PO BEDTIME PRN traMADol [Ultram] Med 07/06/20 17:00 Active 50 mg PO Q6H Medication Orders Albuterol/Ipratropium (Duoneb 3.0-0.5 Mg/3 Ml) 3 ml NEB Q4H PRN PRN Reason: Shortness of Breath Amlodipine Besylate (Norvasc) 5 mg PO DAILY RANJIT Aspirin (Ecotrin) 325 mg PO DAILY RANJIT Atorvastatin Calcium (Lipitor) 40 mg PO BEDTIME RANJIT Lisinopril (Prinivil) 10 mg PO DAILY RANJIT Lorazepam (Ativan) 0.5 mg PO TID PRN PRN Reason: Anxiety Melatonin (Melatonin) 3 mg PO BEDTIME PRN PRN Reason: Sleep Mometasone Furoate/Formoterol Fumar (Dulera 200-5 Mcg) 0 puff IH BID RANJIT Omeprazole (Omeprazole) 40 mg PO BEDTIME RANJIT Polyethylene Glycol (Miralax) 17 gm PO BEDTIME PRN PRN Reason: Constipation Tramadol HCl (Ultram) 50 mg PO Q6H RANJIT Assessment/Plan Comment:: Patient to continue PT/OT for rehabilitation. Appointment to be made for SCC lesion as Dermatology will not be able to see him until next year unless there is a biopsy.
[2020-07-06] MEDS ORDERED: traMADol 50 MG Tab PO PRN (17:25)
[2020-07-06] MEDS: Formoterol/Mometasone 200-5 MCG 8.8 GM Inhaler IH SCH ×2 (17:26→19:59)
[2020-07-06] MEDS: atorvaSTATin 40 MG Tab PO SCH (19:58)
[2020-07-06] MEDS: Omeprazole 20 MG Cap.CR PO SCH (19:58)
[2020-07-06] MEDS: Melatonin 3 MG Tab PO PRN (19:59)
[2020-07-07] MEDS: Formoterol/Mometasone 200-5 MCG 8.8 GM Inhaler IH SCH ×2 (08:16→19:21)
[2020-07-07] MEDS: Aspirin 325 MG Tab.EC PO SCH (08:17)
[2020-07-07] MEDS: Lisinopril 10 MG Tab PO SCH (08:17)
[2020-07-07] MEDS: amLODIPine 5 MG Tab PO SCH (08:17)
[2020-07-07] MEDS: Tamsulosin 0.4 MG Cap.ER PO SCH (10:25)
[2020-07-07] MEDS ORDERED: Tuberculin, PPD 5 Units/0.1 ML 1 ML MDV IDERM ONE (10:39)
[2020-07-07] MEDS: Melatonin 3 MG Tab PO PRN (19:23)
[2020-07-07] MEDS: atorvaSTATin 40 MG Tab PO SCH (19:23)
[2020-07-07] MEDS: Omeprazole 20 MG Cap.CR PO SCH (19:23)
[2020-07-08] MEDS: Aspirin 325 MG Tab.EC PO SCH (07:52)
[2020-07-08] MEDS: amLODIPine 5 MG Tab PO SCH (07:52)
[2020-07-08] MEDS: Formoterol/Mometasone 200-5 MCG 8.8 GM Inhaler IH SCH ×2 (07:53→19:46)
[2020-07-08] MEDS: Lisinopril 10 MG Tab PO SCH (07:53)
[2020-07-08] MEDS: Tamsulosin 0.4 MG Cap.ER PO SCH (09:22)
[2020-07-08] MEDS ORDERED: Tuberculin, PPD 5 Units/0.1 ML 1 ML MDV IDERM ONE (13:16)
[2020-07-08] MEDS: Omeprazole 20 MG Cap.CR PO SCH (19:38)
[2020-07-08] MEDS: atorvaSTATin 40 MG Tab PO SCH (19:39)
[2020-07-09] MEDS: Lisinopril 10 MG Tab PO SCH (08:05)
[2020-07-09] MEDS: amLODIPine 5 MG Tab PO SCH (08:05)
[2020-07-09] MEDS: Aspirin 325 MG Tab.EC PO SCH (08:06)
[2020-07-09] MEDS: Formoterol/Mometasone 200-5 MCG 8.8 GM Inhaler IH SCH ×2 (08:09→20:35)
[2020-07-09] MEDS: Tamsulosin 0.4 MG Cap.ER PO SCH (10:39)
[2020-07-09] MEDS: atorvaSTATin 40 MG Tab PO SCH (20:30)
[2020-07-09] MEDS: Melatonin 3 MG Tab PO PRN (20:31)
[2020-07-09] MEDS: Omeprazole 20 MG Cap.CR PO SCH (20:34)
[2020-07-10] MEDS: Lisinopril 10 MG Tab PO SCH (07:38)
[2020-07-10] MEDS: amLODIPine 5 MG Tab PO SCH (07:39)
[2020-07-10] MEDS: Aspirin 325 MG Tab.EC PO SCH (07:39)
[2020-07-10] MEDS: Formoterol/Mometasone 200-5 MCG 8.8 GM Inhaler IH SCH ×2 (07:43→19:44)
[2020-07-10] MEDS: Tamsulosin 0.4 MG Cap.ER PO SCH (11:50)
[2020-07-10] MEDS: Omeprazole 20 MG Cap.CR PO SCH (19:40)
[2020-07-10] MEDS: atorvaSTATin 40 MG Tab PO SCH (19:41)
[2020-07-11] MEDS: Formoterol/Mometasone 200-5 MCG 8.8 GM Inhaler IH SCH ×2 (07:59→20:52)
[2020-07-11] MEDS: Aspirin 325 MG Tab.EC PO SCH (08:00)
[2020-07-11] MEDS: amLODIPine 5 MG Tab PO SCH (08:00)
[2020-07-11] MEDS: Lisinopril 10 MG Tab PO SCH (08:01)
[2020-07-11] MEDS: Tamsulosin 0.4 MG Cap.ER PO SCH (10:30)
[2020-07-11] MEDS: atorvaSTATin 40 MG Tab PO SCH (20:51)
[2020-07-11] MEDS: Omeprazole 20 MG Cap.CR PO SCH (20:52)
[2020-07-11] MEDS: Melatonin 3 MG Tab PO PRN (20:53)
[2020-07-12] MEDS: Aspirin 325 MG Tab.EC PO SCH (07:29)
[2020-07-12] MEDS: amLODIPine 5 MG Tab PO SCH (07:29)
[2020-07-12] MEDS: Formoterol/Mometasone 200-5 MCG 8.8 GM Inhaler IH SCH ×2 (07:30→19:29)
[2020-07-12] MEDS: Lisinopril 10 MG Tab PO SCH (07:30)
--- NOTE | 2020-07-12 08:25 | PCM.PN ---
- General Info Date of Service: 07/12/20 Subjective Update: Patient doing well with some continued weakness and gait instability. He denies any pain at this time. No shortness of breath, no chest pain. Patient is a former smoker. Functional Status: Reports: Pain Controlled, Tolerating Diet - Review of Systems General: Reports: Weakness HEENT: Reports: No Symptoms Pulmonary: Reports: No Symptoms Cardiovascular: Reports: No Symptoms Gastrointestinal: Reports: No Symptoms Musculoskeletal: Reports: No Symptoms Neurological: Reports: No Symptoms Psychiatric: Reports: No Symptoms - Patient Data Vitals - Most Recent: Last Vital Signs Temp 37.1 C 07/12/20 07:31 Pulse 73 07/12/20 07:31 Resp 26 H 07/12/20 07:31 BP 143/94 H 07/12/20 07:31 Pulse Ox 92 L 07/12/20 07:31 Weight - Most Recent: 79.651 kg Med Orders - Current: Current Medications Albuterol/Ipratropium (Duoneb 3.0-0.5 Mg/3 Ml) 3 ml NEB Q4H PRN PRN Reason: Shortness of Breath Amlodipine Besylate (Norvasc) 5 mg PO DAILY [facility] Last Admin: 07/12/20 07:29 Dose: 5 mg Documented by: Aspirin (Ecotrin) 325 mg PO DAILY [facility] Last Admin: 07/12/20 07:29 Dose: 325 mg Documented by: Atorvastatin Calcium (Lipitor) 40 mg PO BEDTIME [facility] Last Admin: 07/11/20 20:51 Dose: 40 mg Documented by: Lisinopril (Prinivil) 10 mg PO DAILY [facility] Last Admin: 07/12/20 07:30 Dose: 10 mg Documented by: Lorazepam (Ativan) 0.5 mg PO TID PRN PRN Reason: Anxiety Melatonin (Melatonin) 3 mg PO BEDTIME PRN PRN Reason: Sleep Last Admin: 07/11/20 20:53 Dose: 3 mg Documented by: Mometasone Furoate/Formoterol Fumar (Dulera 200-5 Mcg) 0 puff IH BID [facility] Last Admin: 07/12/20 07:30 Dose: 2 puff Documented by: Omeprazole (Omeprazole) 40 mg PO BEDTIME [facility] Last Admin: 07/11/20 20:52 Dose: 40 mg Documented by: Polyethylene Glycol (Miralax) 17 gm PO BEDTIME PRN PRN Reason: Constipation Tamsulosin HCl (Flomax) 0.4 mg PO PCBREAKFAST [facility] Last Admin: 07/11/20 10:30 Dose: 0.4 mg Documented by: Tramadol HCl (Ultram) 50 mg PO Q6H PRN PRN Reason: Pain Discontinued Medications Tamsulosin HCl (Flomax) 0.4 mg PO ONETIME ONE Stop: 07/06/20 16:39 Last Admin: 07/06/20 17:19 Dose: Not Given Documented by: Tramadol HCl (Ultram) 50 mg PO Q6H [facility] Last Admin: 07/06/20 17:24 Dose: Not Given Documented by: Tuberculin PPD (Aplisol) 5 unit IDERM ONETIME ONE Stop: 07/07/20 10:40 Last Admin: 07/07/20 14:48 Dose: Not Given Documented by: Tuberculin PPD (Aplisol) 5 unit IDERM ONETIME ONE Stop: 07/08/20 13:17 Last Admin: 07/08/20 13:29 Dose: 5 unit Documented by: - Exam General: Alert, Cooperative HEENT: Pupils Equal, Pupils Reactive, EOMI Neck: Supple Lungs: Decreased Breath Sounds, Crackles, Rales Cardiovascular: Regular Rate, Regular Rhythm GI/Abdominal Exam: Normal Bowel Sounds, Soft, Non-Tender Back Exam: Normal Inspection Extremities: Normal Inspection Skin: Other (wound of the posterior scalp) Sepsis Event Note - Evaluation Sepsis Screening Result: No Definite Risk - Focused Exam Vital Signs: Vital Signs Temp Pulse Resp BP BP Pulse Ox 07/12/20 07:31 37.1 C 73 26 H 143/94 H 92 L 07/12/20 07:30 143/94 H 07/12/20 07:29 143/94 H - Problem List & Annotations (1) CVA (cerebral vascular accident) SNOMED Code(s): 060891351 Code(s): I63.9 - CEREBRAL INFARCTION, UNSPECIFIED Status: Acute Priority: High Current Visit: Yes (2) Severe muscle deconditioning SNOMED Code(s): 891389996 Code(s): R29.898 - OTH SYMPTOMS AND SIGNS INVOLVING THE MUSCULOSKELETAL SYSTEM Status: Acute Priority: High Current Visit: Yes (3) Rhabdomyolysis SNOMED Code(s): 480910110 Code(s): M62.82 - RHABDOMYOLYSIS Status: Resolved Priority: High Current Visit: Yes (4) Syncope and collapse SNOMED Code(s): 476273792 Code(s): R55 - SYNCOPE AND COLLAPSE Status: Acute Priority: High Current Visit: Yes (5) Basal cell carcinoma (BCC) in situ of skin SNOMED Code(s): 61433274095234 Code(s): D04.9 - CARCINOMA IN SITU OF SKIN, UNSPECIFIED Status: Chronic Priority: High Current Visit: Yes Annotation/Comment:: Large area [id number] of the posterior scalp that has been present for a long time per patient. - Problem List Review Problem List Initiated/Reviewed/Updated: Yes - My Orders Last 24 Hours: My Active Orders 07/12/20 08:00 CBC WITH AUTO DIFF [HEME] Routine - Plan Plan:: Patient to continue PT/OT for rehabilitation. Appointment to be made for SCC lesion as Dermatology will not be able to see him until next year unless there is a biopsy. 07/12/20 Continue PT/OT. F/u recommendations. Biopsy of skin lesion to be scheduled. Lasix started for b/l lower lung crackles. Recheck labs as indicated.
[2020-07-12] MEDS: Furosemide 40 MG Tab PO SCH (08:59)
[2020-07-12] MEDS: Tamsulosin 0.4 MG Cap.ER PO SCH (08:59)
[2020-07-12] MEDS: Omeprazole 20 MG Cap.CR PO SCH (19:30)
[2020-07-12] MEDS: atorvaSTATin 40 MG Tab PO SCH (19:30)
[2020-07-12] MEDS: Melatonin 3 MG Tab PO PRN (19:32)
[2020-07-13] MEDS: Furosemide 40 MG Tab PO SCH (07:37)
[2020-07-13] MEDS: amLODIPine 5 MG Tab PO SCH (07:37)
[2020-07-13] MEDS: Aspirin 325 MG Tab.EC PO SCH (07:37)
[2020-07-13] MEDS: Lisinopril 10 MG Tab PO SCH (07:37)
[2020-07-13] MEDS: Formoterol/Mometasone 200-5 MCG 8.8 GM Inhaler IH SCH ×2 (07:38→19:52)
[2020-07-13] MEDS: Tamsulosin 0.4 MG Cap.ER PO SCH (10:49)
[2020-07-13] MEDS: atorvaSTATin 40 MG Tab PO SCH (19:50)
[2020-07-13] MEDS: Omeprazole 20 MG Cap.CR PO SCH (19:51)
[2020-07-14] MEDS: Formoterol/Mometasone 200-5 MCG 8.8 GM Inhaler IH SCH ×2 (08:05→19:36)
[2020-07-14] MEDS: Aspirin 325 MG Tab.EC PO SCH (08:05)
[2020-07-14] MEDS: amLODIPine 5 MG Tab PO SCH (08:06)
[2020-07-14] MEDS: Lisinopril 10 MG Tab PO SCH (08:06)
[2020-07-14] MEDS: Furosemide 40 MG Tab PO SCH (08:06)
[2020-07-14] MEDS: Tamsulosin 0.4 MG Cap.ER PO SCH (10:10)
[2020-07-14] MEDS: Omeprazole 20 MG Cap.CR PO SCH (19:36)
[2020-07-14] MEDS: atorvaSTATin 40 MG Tab PO SCH (19:37)
[2020-07-14] MEDS: Melatonin 3 MG Tab PO PRN (22:40)
[2020-07-15] MEDS: Aspirin 325 MG Tab.EC PO SCH (07:21)
[2020-07-15] MEDS: Lisinopril 10 MG Tab PO SCH (07:21)
[2020-07-15] MEDS: Furosemide 40 MG Tab PO SCH (07:21)
[2020-07-15] MEDS: amLODIPine 5 MG Tab PO SCH (07:21)
[2020-07-15] MEDS: Formoterol/Mometasone 200-5 MCG 8.8 GM Inhaler IH SCH ×2 (07:23→20:59)
[2020-07-15] MEDS: Tamsulosin 0.4 MG Cap.ER PO SCH (09:27)
[2020-07-15] MEDS: Melatonin 3 MG Tab PO PRN (20:59)
[2020-07-15] MEDS: Omeprazole 20 MG Cap.CR PO SCH (20:59)
[2020-07-15] MEDS: atorvaSTATin 40 MG Tab PO SCH (20:59)
[2020-07-16] MEDS: Formoterol/Mometasone 200-5 MCG 8.8 GM Inhaler IH SCH ×2 (07:41→19:53)
[2020-07-16] MEDS: Aspirin 325 MG Tab.EC PO SCH (07:41)
[2020-07-16] MEDS: amLODIPine 5 MG Tab PO SCH (07:41)
[2020-07-16] MEDS: Furosemide 40 MG Tab PO SCH (07:41)
[2020-07-16] MEDS: Lisinopril 10 MG Tab PO SCH (07:41)
[2020-07-16] MEDS: Tamsulosin 0.4 MG Cap.ER PO SCH (10:40)
[2020-07-16] MEDS: atorvaSTATin 40 MG Tab PO SCH (19:52)
[2020-07-16] MEDS: Omeprazole 20 MG Cap.CR PO SCH (19:52)
[2020-07-17] MEDS: Albuterol/Ipratropium 3.0-0.5 MG/3 ML Neb Soln NEB PRN ×2 (06:33→10:40)
[2020-07-17] MEDS: Formoterol/Mometasone 200-5 MCG 8.8 GM Inhaler IH SCH ×2 (07:40→20:00)
[2020-07-17] MEDS: Aspirin 325 MG Tab.EC PO SCH (07:40)
[2020-07-17] MEDS: amLODIPine 5 MG Tab PO SCH (07:40)
[2020-07-17] MEDS: Furosemide 40 MG Tab PO SCH (07:41)
[2020-07-17] MEDS: Lisinopril 10 MG Tab PO SCH (07:41)
[2020-07-17] MEDS: Tamsulosin 0.4 MG Cap.ER PO SCH (10:27)
[2020-07-17] MEDS ORDERED: Furosemide 40 MG Tab PO ONE (12:00)
--- NOTE | 2020-07-17 12:15 | PCM.SN.2 ---
- Free Text/Narrative Note: Patient eating lunch, denies any SOB, RR noted at 24. Bilateral LE edema, will start compression socks. 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 CXR negative for pneumonia, BNP elevated at 1588. Patient will ne started on Q4H duonebs, PRN albuterol nebs and additional 40 mg IV lasix one time. Denies any CP, abdominal pain.
[2020-07-17] MEDS: Albuterol/Ipratropium 3.0-0.5 MG/3 ML Neb Soln NEB SCH ×3 (13:25→19:30)
[2020-07-17] MEDS: atorvaSTATin 40 MG Tab PO SCH (19:31)
[2020-07-17] MEDS: LORazepam 0.5 MG Tab PO PRN (19:31)
[2020-07-17] MEDS: Omeprazole 20 MG Cap.CR PO SCH (19:31)
[2020-07-17] MEDS: Melatonin 3 MG Tab PO PRN (19:34)
[2020-07-18] MEDS: Albuterol/Ipratropium 3.0-0.5 MG/3 ML Neb Soln NEB SCH ×7 (01:47→19:35)
[2020-07-18] MEDS: Albuterol 0.083% 2.5 MG/3 ML Neb Soln NEB PRN ×2 (03:00→22:00)
[2020-07-18] MEDS: amLODIPine 5 MG Tab PO SCH (07:44)
[2020-07-18] MEDS: Formoterol/Mometasone 200-5 MCG 8.8 GM Inhaler IH SCH ×2 (07:44→19:29)
[2020-07-18] MEDS: Aspirin 325 MG Tab.EC PO SCH (07:45)
[2020-07-18] MEDS: Furosemide 40 MG Tab PO SCH (07:45)
[2020-07-18] MEDS: Lisinopril 10 MG Tab PO SCH (07:45)
[2020-07-18] MEDS: Tamsulosin 0.4 MG Cap.ER PO SCH (09:48)
--- NOTE | 2020-07-18 11:44 | PCM.SN.2 ---
- Free Text/Narrative Note: reported vianney red blood in stool last night. Repeat HGB shows no change, patient comfortable, no complaints at this time.
--- NOTE | 2020-07-18 12:07 | CR ---
DATE OF SERVICE: 07/17/20 CLINICAL DATA: Increased SOB, wheezes, crackles AP AND LATERAL CHEST: Comparison is made to a prior exam dated 06/15/20. The cardiac pacer and pacer wires remain unchanged in position. The heart remains enlarged, unchanged. There is persistent pulmonary vascular congestion, however it does appear to be slightly improved from the prior exam. The mild interstitial edema throughout both lungs has also improved. The bilateral pleural effusions on the prior exam have nearly completely resolved. The atelectasis and consolidation in the right lung base on the prior exam has resolved. The exam is otherwise unchanged. No new abnormalities. [id number] [facility]
[2020-07-18] MEDS: Albuterol/Ipratropium 3.0-0.5 MG/3 ML Neb Soln NEB PRN (16:36)
[2020-07-18] MEDS: LORazepam 0.5 MG Tab PO PRN (19:29)
[2020-07-18] MEDS: Omeprazole 20 MG Cap.CR PO SCH (19:29)
[2020-07-18] MEDS: atorvaSTATin 40 MG Tab PO SCH (19:30)
[2020-07-19] MEDS: Albuterol/Ipratropium 3.0-0.5 MG/3 ML Neb Soln NEB SCH ×8 (01:43→19:48)
[2020-07-19] MEDS: Lisinopril 10 MG Tab PO SCH (07:29)
[2020-07-19] MEDS: Formoterol/Mometasone 200-5 MCG 8.8 GM Inhaler IH SCH ×2 (07:29→19:20)
[2020-07-19] MEDS: amLODIPine 5 MG Tab PO SCH (07:30)
[2020-07-19] MEDS: Furosemide 40 MG Tab PO SCH (07:30)
[2020-07-19] MEDS: Tamsulosin 0.4 MG Cap.ER PO SCH (11:38)
[2020-07-19] MEDS: Aspirin 325 MG Tab.EC PO SCH (11:39)
[2020-07-19] MEDS: Omeprazole 20 MG Cap.CR PO SCH (19:20)
[2020-07-19] MEDS: atorvaSTATin 40 MG Tab PO SCH (19:20)
[2020-07-20] MEDS: Albuterol/Ipratropium 3.0-0.5 MG/3 ML Neb Soln NEB SCH ×4 (00:19→20:00)
[2020-07-20] MEDS ORDERED: Sodium Chloride 0.9% 10 ML Syringe FLUSH PRN (02:00)
[2020-07-20] MEDS: amLODIPine 5 MG Tab PO SCH (07:37)
[2020-07-20] MEDS: Furosemide 40 MG Tab PO SCH (07:37)
[2020-07-20] MEDS: Aspirin 81 MG Tab.EC PO SCH (07:37)
[2020-07-20] MEDS: Lisinopril 10 MG Tab PO SCH (07:40)
[2020-07-20] MEDS: Formoterol/Mometasone 200-5 MCG 8.8 GM Inhaler IH SCH ×2 (08:00→19:55)
[2020-07-20] MEDS: Tamsulosin 0.4 MG Cap.ER PO SCH (09:59)
[2020-07-20 16:01] VITALS: PULSE 76
[2020-07-20] MEDS ORDERED: Furosemide 40 MG/4 ML VIAL IVPUSH ONE (19:34)
[2020-07-20] MEDS: atorvaSTATin 40 MG Tab PO SCH (19:54)
[2020-07-20] MEDS: Omeprazole 20 MG Cap.CR PO SCH (19:54)
[2020-07-21] MEDS: Albuterol/Ipratropium 3.0-0.5 MG/3 ML Neb Soln NEB SCH ×2 (01:19→05:26)
[2020-07-21 08:00] VITALS: BP 138/83
[2020-07-21] MEDS: amLODIPine 5 MG Tab PO SCH (08:01)
[2020-07-21] MEDS: Furosemide 40 MG Tab PO SCH (08:01)
[2020-07-21] MEDS: Albuterol/Ipratropium 3.0-0.5 MG/3 ML Neb Soln NEB PRN (08:01)
[2020-07-21] MEDS: Lisinopril 10 MG Tab PO SCH (08:02)
[2020-07-21] MEDS: Aspirin 81 MG Tab.EC PO SCH (08:02)
[2020-07-21] MEDS ORDERED: Pantoprazole 80 MG in Sodium Chloride 0.9% 100 ML IV ONE (08:54)
--- NOTE | 2020-07-21 09:44 | PCM.CONS ---
H&P History of Present Illness - General Date of Service: 07/21/20 Admit Problem/Dx: Admission Diagnosis/Problem Admission Diagnosis/Problem Weakness Source of Information: Patient, Old Records, RN, RN Notes Reviewed History Limitations: Reports: Other (hearing impairment.) - History of Present Illness Other HPI/Comments: This is an 80-year-old gentleman with an essentially unknown past medical history who has been getting out of hospital cardiac, here in the past couple m onths. Patient did present initially with syncope transferred to [place], [place]. The thought was that the patient had GI bleeding. Patient was not scoped at that time but was sent back on swing bed where he has remained since 07/06/2020. Patient lives independently in his home. Most of history is provided by the bedside nurse as the patient is severely hearing impaired and this visit is performed via interactive video. The patient notes increasing shortness of breath with evidence of bleeding in the body. He did receive 2 units of packed red cells a couple of days ago and has been undergoing diuresis for worsening of congestive heart failure. Patient has no cardiac history according to records available to me. He is currently receiving aspirin, YONNY inhibitor and beta-carlos. He is receiving nightly PPI as well. - Related Data Allergies/Adverse Reactions: Allergies Allergy/AdvReac Type Severity Reaction Status Date / Time No Known Allergies Allergy Verified 06/21/20 19:03 Home Medications: Home Meds Aspirin [Halfprin] 81 mg PO DAILY 01/18/15 [History] Lisinopril 10 mg PO DAILY 01/18/15 [History] Albuterol/Ipratropium [DuoNeb 3.0-0.5 MG/3 ML] 3 ml NEB Q4H neb 01/21/15 [Rx] Spironolactone [Aldactone] 25 mg PO DAILY 01/31/16 [History] amLODIPine [Norvasc] 5 mg PO DAILY 01/31/16 [History] atorvaSTATin Calcium [Atorvastatin Calcium] 20 mg PO QPM 01/31/16 [History] Mometasone/Formoterol [Dulera 200 Mcg/5 Mcg Inhaler] 2 puff IH BID 06/21/20 [History] traMADol [Ultram] 50 mg PO Q6H PRN 06/21/20 [History] Past Medical History HEENT History: Reports: Hard of Hearing, Impaired Vision Cardiovascular History: Reports: Afib, CAD, Heart Failure, Pacemaker Respiratory History: Reports: COPD Gastrointestinal History: Reports: GERD Musculoskeletal History: Reports: Osteoarthritis Endocrine/Metabolic History: Reports: Hypokalemia, Hypomagnesemia Hematologic History: Reports: Anticoagulation Therapy Oncologic (Cancer) History: Reports: Other (See Below) Other Oncologic History: hx of skin CA Dermatologic History: Reports: Melanoma, Other (See Below) Other Dermatologic History: hx of skin ca with CA removed from back lip nose and head - Infectious Disease History Infectious Disease History: Reports: Measles, Mumps Other Infectious Disease History: patient is unsure but states he might have had the measels and mumps and was the only one in his family that didn't get chicken pox - Past Surgical History Head Surgeries/Procedures: Reports: None HEENT Surgical History: Reports: Other (See Below) GI Surgical History: Reports: None Musculoskeletal Surgical History: Reports: Hip Replacement Social & Family History - Family History Family Medical History: Noncontributory Cardiac: Reports: CAD, Pacemaker Respiratory: Reports: COPD GI: Reports: None : Reports: None Neurological: Reports: None Psychiatric: Reports: None Endocrine/Metabolic: Reports: None Hematologic: Reports: None Immunologic: Reports: None Oncologic: Reports: Skin - Tobacco Use Tobacco Use Status *Q: Never Tobacco User Second Hand Smoke Exposure: No - Caffeine Use Caffeine Use: Reports: Coffee, Soda - Alcohol Use Days Per Week of Alcohol Use: 3 Number of Drinks Per Day: 3 Total Drinks Per Week: 9 - Recreational Drug Use Recreational Drug Use: No - Living Situation & Occupation Living situation: Reports: Single Occupation: Retired H&P Review of Systems - Review of Systems: Review Of Systems: See Below Exam - Exam Exam: See Below - Vital Signs Vital Signs: Last Vital Signs Temp 37.3 C 07/21/20 07:56 Pulse 76 07/21/20 07:56 Resp 40 H 07/21/20 07:56 BP 138/83 07/21/20 08:02 Pulse Ox 88 L 07/21/20 07:56 Weight: 83.37 kg - Exam General: Alert, Oriented, Cooperative HEENT: EOMI, Mucosa Moist & [place] Neck: JVD Lungs: Decreased Breath Sounds, Crackles, Rales, Other (tachypnea) Cardiovascular: Regular Rate, Regular Rhythm, Normal S1, Normal S2, Gallop/S4 GI/Abdominal Exam: Normal Bowel Sounds, Soft, Non-Tender Neuro Extensive - Mental Status: Alert, Oriented x3, Normal Mood/Affect, Normal Cognition - Patient Data Lab Results Last 24 hrs: Laboratory Results - last 24 hr 07/20/20 07/20/20 07/21/20 Range/Units 08:46 19:36 07:15 WBC (4.0-11.0) K/uL RBC (4.50-6.50) M/uL Hgb 8.8 L D (13.0-18.0) g/dL Hct 27.0 L (40.0-54.0) % MCV (76-96) fL MCH (27.0-32.0) pg MCHC (31.0-35.0) g/dL RDW (11.0-16.0) % Plt Count (150-400) K/uL MPV (6.0-10.0) fL Neut % (Auto) (45.0-70.0) % Lymph % (Auto) (20.0-40.0) % [place] % (Auto) (3.0-10.0) % Eos % (Auto) (1.0-5.0) % Baso % (Auto) (0.0-0.5) % Neut # (Auto) (2.00-7.50) K/uL Lymph # (Auto) (1.50-4.00) K/uL [place] # (Auto) (0.20-0.80) K/uL Eos # (Auto) (0.04-0.40) K/uL Baso # (Auto) (0.02-0.10) K/uL Sodium (136-145) mmol/L Potassium (3.5-5.1) mmol/L Chloride (98-107) mmol/L Carbon Dioxide (21.0-32.0) mmol/L Anion Gap (5.0-15.0) mmol/L BUN (8-26) mg/dL Creatinine (0.70-1.30) mg/dL Est Cr Clr Drug Dosing mL/min Estimated GFR (MDRD) (>60) MLS/MIN BUN/Creatinine Ratio (6-25) Glucose (74-100) mg/dL Calcium (8.5-10.1) mg/dL B-Natriuretic Peptide 2805 H D (0-450) pg/mL Blood Type A POSITIVE Gel Antibody Screen Negative Crossmatch See Detail 07/21/20 07/21/20 Range/Units 07:15 07:15 WBC 7.7 (4.0-11.0) K/uL RBC 3.34 L (4.50-6.50) M/uL Hgb 8.7 L (13.0-18.0) g/dL Hct 26.8 L (40.0-54.0) % MCV 80 (76-96) fL MCH 26.0 L (27.0-32.0) pg MCHC 32.5 (31.0-35.0) g/dL RDW 17.7 H (11.0-16.0) % Plt Count 300 (150-400) K/uL MPV 8.4 (6.0-10.0) fL Neut % (Auto) 73.8 H (45.0-70.0) % Lymph % (Auto) 10.6 L (20.0-40.0) % [place] % (Auto) 13.0 H (3.0-10.0) % Eos % (Auto) 2.5 (1.0-5.0) % Baso % (Auto) 0.1 (0.0-0.5) % Neut # (Auto) 5.68 (2.00-7.50) K/uL Lymph # (Auto) 0.82 L (1.50-4.00) K/uL [place] # (Auto) 1.00 H (0.20-0.80) K/uL Eos # (Auto) 0.19 (0.04-0.40) K/uL Baso # (Auto) 0.01 L (0.02-0.10) K/uL Sodium 133 L (136-145) mmol/L Potassium 3.8 (3.5-5.1) mmol/L Chloride 97 L (98-107) mmol/L Carbon Dioxide 28.0 (21.0-32.0) mmol/L Anion Gap 11.8 (5.0-15.0) mmol/L BUN 13 (8-26) mg/dL Creatinine 0.92 (0.70-1.30) mg/dL Est Cr Clr Drug Dosing 67.95 mL/min Estimated GFR (MDRD) > 60 (>60) MLS/MIN BUN/Creatinine Ratio 14.1 (6-25) Glucose 85 D (74-100) mg/dL Calcium 8.0 L (8.5-10.1) mg/dL B-Natriuretic Peptide (0-450) pg/mL Blood Type Gel Antibody Screen Crossmatch Result Diagrams: 07/21/20 07:15 07/21/20 07:15 Sepsis Event Note - Evaluation Sepsis Screening Result: No Definite Risk - Focused Exam Vital Signs: Vital Signs Temp Pulse Resp BP BP Pulse Ox 07/21/20 08:02 138/83 07/21/20 08:01 138/83 07/21/20 07:56 37.3 C 76 40 H 138/83 88 L *Q Meaningful Use (ADM) - VTE *Q VTE Mechanical Contraindications *Q: At Risk for Falls VTE Pharmacological Contraindications *Q: Active Hemorrhage Consult PN Assessment/Plan Procedures: Procedures ASSAY OF BLOOD OSMOLALITY (01/20/15) ASSAY OF CK (CPK) (06/15/20) ASSAY OF LACTIC ACID (06/15/20) ASSAY OF MAGNESIUM (06/15/20) ASSAY OF NATRIURETIC PEPTIDE (06/15/20) ASSAY OF TROPONIN QUANT (06/15/20) ASSAY OF URINE OSMOLALITY (01/20/15) CHEST X-RAY 2VW FRONTAL&LATL (01/20/15) COMPLETE CBC W/AUTO DIFF WBC (06/15/20) COMPREHEN METABOLIC PANEL (06/15/20) CT ABD & PELV W/CONTRAST (01/25/15) CT ABD & PELVIS W/O CONTRAST (06/15/20) CT HEAD/BRAIN W/O DYE (06/15/20) CT ORBIT/EAR/FOSSA W/O DYE (07/22/16) CT THORAX W/O DYE (06/15/20) DRAIN/INJ JOINT/BURSA W/O US (09/01/15) ELECTROCARDIOGRAM TRACING (06/15/20) EMERGENCY DEPT VISIT (07/22/16) GAIT TRAINING THERAPY (06/15/20) HEPATIC FUNCTION PANEL (01/20/15) HYDRATE IV INFUSION ADD-ON (01/20/15) INITIAL OBSERVATION CARE (07/22/16) INITIAL OBSERVATION CARE (01/20/15) INSERT BLADDER CATHETER (06/15/20) INSERT TEMP BLADDER CATH (06/15/20) LIPID PANEL (11/08/15) METABOLIC PANEL TOTAL CA (06/15/20) NEEDLE LOCALIZATION BY XRAY (09/01/15) OBSERVATION CARE DISCHARGE (07/22/16) OT EVAL LOW COMPLEX 30 MIN (06/15/20) PROTHROMBIN TIME (06/15/20) PT EVAL LOW COMPLEX 20 MIN (06/15/20) PT EVALUATION (02/17/16) RBC ANTIBODY SCREEN (03/29/16) ROUTINE VENIPUNCTURE (06/15/20) SELF CARE MNGMENT TRAINING (06/15/20) THER/PROPH/DIAG INJ IV PUSH (01/20/15) THERAPEUTIC ACTIVITIES (06/15/20) THERAPEUTIC EXERCISES (06/15/20) TISSUE EXAM BY PATHOLOGIST (03/05/15) TTE W/DOPPLER COMPLETE (08/16/16) URINALYSIS AUTO W/SCOPE (06/15/20) URINE CULTURE/COLONY COUNT (06/15/20) US EXAM ABDOM COMPLETE (01/20/15) X-RAY EXAM CHEST 2 VIEWS (06/15/20) X-RAY EXAM HIP UNI 2-3 VIEWS (02/08/16) X-RAY EXAM HIPS BI 2 VIEWS (02/13/17) X-RAY EXAM HIPS BI 3-4 VIEWS (02/28/16) (1) CHF (congestive heart failure) SNOMED Code(s): 47083292 Code(s): I50.9 - HEART FAILURE, UNSPECIFIED Current Visit: Yes (2) GI bleed SNOMED Code(s): 85726197 Code(s): K92.2 - GASTROINTESTINAL HEMORRHAGE, UNSPECIFIED Current Visit: Yes Problem List Initiated/Reviewed/Updated: Yes My Orders Last 24 Hours: My Active Orders 07/21/20 07:15 IRON AND TIBC Routine 07/21/20 08:50 Chest 1V Frontal [CR] Routine 07/21/20 08:54 Pantoprazole [ProTONIX IV] 80 mg Sodium Chloride 0.9% [Normal Saline] 100 ml IV .BOLUS 07/21/20 09:37 Ready for Discharge [RC] PER UNIT ROUTINE 07/21/20 09:38 Transfer Patient (Change bed) [ADT] Routine Plan: * Transfer to [place] directly to ED. Dr. Shook. * Needs definitive dx of GI bleeding--ddx underlying malignancy, vs obscure causes. Likely needs upper and lower scopes. * Did get IV ppi prior to transfer. * Needs CHF eval--new echo etc. * also has a large skin mass on scalp Bx pending.
--- NOTE | 2020-07-22 08:41 | CR ---
Date of Service: 07/20/20 Clinical Data: Increased dyspnea. PA AND LATERAL CHEST: Comparison is made to a prior exam dated 07/17/20. The cardiac pacer and pacer wires remain unchanged in position. The heart remains enlarged, unchanged. There is persistent pulmonary vascular congestion. There is persistent mild interstitial edema, mildly improved from the prior study. The exam is otherwise unchanged. [id number] [facility]
--- NOTE | 2020-07-22 08:43 | CR ---
Date of Service: 07/21/20 Clinical Data: Shortness of breath AP CHEST: Comparison is made to a prior exam dated 07/20/20. The heart remains enlarged, unchanged. The cardiac pacer and pacer wires remain unchanged in position. There is persistent pulmonary vascular congestion with mild progression from the prior exam. There is mild interstitial edema throughout both lungs. Congestive failure is suspected. There are densities at both lung bases consistent with basilar atelectasis or infiltrate. Pneumonia should be considered. The exam is otherwise unchanged from the prior. [id number] [facility]
[2020-07-23 08:13] LABS: IRON BIND.CAP.(TIBC) 331 ug/dL (250-450); IRON SATURATION 7 % (15-55); IRON, SERUM 23 ug/dL (38-169); UIBC 308 ug/dL (111-343)
== END 2020-07-21 10:00 | DRG 57 ==
LOC: LB.MS 14:56
PROVIDERS: ADMIT Family Medicine; ATTEND Family Medicine
DX: I69.30 Unspecified sequelae of cerebral infarction (principal); M62.82 Rhabdomyolysis; K92.2 Gastrointestinal hemorrhage, unspecified; R53.1 Weakness; I48.91 Unspecified atrial fibrillation; I25.10 Atherosclerotic heart disease of native coronary artery without angina pectoris; I50.9 Heart failure, unspecified; J44.9 Chronic obstructive pulmonary disease, unspecified; K21.9 Gastro-esophageal reflux disease without esophagitis; M19.90 Unspecified osteoarthritis, unspecified site; Z96.649 Presence of unspecified artificial hip joint; R29.898 Other symptoms and signs involving the musculoskeletal system; D04.9 Carcinoma in situ of skin, unspecified; R55 Syncope and collapse; Z79.899 Other long term (current) drug therapy; Z79.82 Long term (current) use of aspirin; Z95.0 Presence of cardiac pacemaker; Z79.01 Long term (current) use of anticoagulants
CPT/HCPCS: 36415; 36430; 51701; 51798; 71045; 71046; 80048; 80053; 81003; 83540; 83550; 83880; 85014; 85018; 85025; 86580; 86850; 86900; 86901; 86920; 86922; 97110-GP; 97161-GP; 97165-GO; 97530-GO; 97530-GP; 97535-GO; A9270-GY; J1940; J7620-GY; P9016

== ENCOUNTER 2020-07-28 11:11 | Inpatient (IN) | payer MEDICARE ==
[2020-07-28] MEDS ORDERED: PYRIDOXINE HCL PO PRN (17:12)
[2020-07-28] MEDS ORDERED: MELATONIN PO PRN (17:12)
[2020-07-28] MEDS ORDERED: [UNRECOGNIZED DRUG - OTHER] PO PRN (17:12)
[2020-07-28] MEDS ORDERED: LORazepam 0.5 MG Tab PO PRN (17:12)
[2020-07-28] MEDS ORDERED: traMADol 50 MG Tab PO PRN (17:12)
--- NOTE | 2020-07-28 17:12 | PCM.HP.2 ---
H&P History of Present Illness - General Date of Service: 07/28/20 Admit Problem/Dx: Admission Diagnosis/Problem Admission Diagnosis/Problem Gastrointestinal hemorrhage Source of Information: Patient - History of Present Illness Initial Comments - Free Text/Narative: This is a 80yo M post hospital discharge from [place] for an acute GI bleed here for sub acute rehabilitation. Associated Symptoms: Reports: Confusion, Weakness - Related Data Allergies/Adverse Reactions: Allergies Allergy/AdvReac Type Severity Reaction Status Date / Time No Known Allergies Allergy Verified 07/28/20 16:46 Home Medications: Home Meds Aspirin [Halfprin] 81 mg PO DAILY 01/18/15 [History] Lisinopril 1 tab PO DAILY 01/18/15 [History] amLODIPine [Norvasc] 1 tab PO DAILY 01/31/16 [History] atorvaSTATin Calcium [Atorvastatin Calcium] 2 tab PO QPM 01/31/16 [History] Mometasone/Formoterol [Dulera 200 Mcg/5 Mcg Inhaler] 2 puff IH BID 06/21/20 [History] traMADol [Ultram] 1 tab PO Q6H PRN 06/21/20 [History] Albuterol/Ipratropium [DuoNeb 3.0-0.5 MG/3 ML] 1 ampule NEB Q4H PRN 07/28/20 [History] Ferrous Sulfate 1 tab PO BIDMEALS 07/28/20 [History] Furosemide 1 tab PO BID 07/28/20 [History] LORazepam [Ativan] 1 tab PO TID PRN 07/28/20 [History] Melatonin 2 tab PO BEDTIME PRN 07/28/20 [History] Metoprolol Tartrate 0.5 tab PO BID 07/28/20 [History] Omeprazole 40 mg PO BIDAC 07/28/20 [History] Tamsulosin [Tamsulosin 24 Hr] 1 cap PO DAILY 07/28/20 [History] Umeclidinium Brm/Vilanterol Tr [Anoro Ellipta 62.5-25 MCG] 1 puff IH DAILY 07/28/20 [History] Past Medical History HEENT History: Reports: Hard of Hearing, Impaired Vision Cardiovascular History: Reports: Afib, CAD, Heart Failure, High Cholesterol, Hypertension, Pacemaker, SOB on Exertion Respiratory History: Reports: Bronchitis, Recurrent, COPD, SOB, Other (See Below) Other Respiratory History: chronic respiratory failure with hypoxia Gastrointestinal History: Reports: Colon Polyp, GERD, GI Bleed Genitourinary History: Reports: BPH Musculoskeletal History: Reports: Osteoarthritis Neurological History: Reports: CVA Psychiatric History: Reports: Anxiety Endocrine/Metabolic History: Reports: Hypokalemia, Hypomagnesemia Hematologic History: Reports: Anticoagulation Therapy Oncologic (Cancer) History: Reports: Basal Cell Carcinoma, Other (See Below) Other Oncologic History: hx of skin CA Dermatologic History: Reports: Melanoma, Other (See Below) Other Dermatologic History: hx of skin ca with CA removed from back lip nose and head - Infectious Disease History Infectious Disease History: Reports: Measles, Mumps Other Infectious Disease History: patient is unsure but states he might have had the measels and mumps and was the only one in his family that didn't get chicken pox - Past Surgical History Head Surgeries/Procedures: Reports: None Cardiovascular Surgical History: Reports: Pacer, Other (See Below) GI Surgical History: Reports: Colonoscopy, Polypectomy Neurological Surgical History: Reports: None Musculoskeletal Surgical History: Reports: Hip Replacement Dermatological Surgical History: Reports: Skin Biopsy Social & Family History - Family History Family Medical History: Noncontributory Cardiac: Reports: CAD, Pacemaker Respiratory: Reports: COPD GI: Reports: None : Reports: None Neurological: Reports: None Psychiatric: Reports: None Endocrine/Metabolic: Reports: None Hematologic: Reports: None Immunologic: Reports: None Oncologic: Reports: Skin - Caffeine Use Caffeine Use: Reports: Coffee, Soda - Recreational Drug Use Recreational Drug Use: No - Living Situation & Occupation Living situation: Reports: Single Occupation: Retired H&P Review of Systems - Review of Systems: Review Of Systems: Comprehensive ROS is negative, except as noted in HPI. Exam - Exam Exam: See Below - Vital Signs Vital Signs: Last Vital Signs Temp 36.3 C 07/28/20 14:05 Pulse 72 07/28/20 14:05 Resp 18 07/28/20 14:05 BP 136/82 07/28/20 14:05 Pulse Ox 95 07/28/20 14:05 Weight: 76.884 kg - Exam General: Alert, Cooperative HEENT: PERRLA, Conjunctiva Clear, EACs Clear Neck: Supple, Trachea Midline Lungs: Clear to Auscultation, Normal Respiratory Effort Cardiovascular: Regular Rate, Regular Rhythm GI/Abdominal Exam: Normal Bowel Sounds Back Exam: Normal Inspection Extremities: Normal Inspection Peripheral Pulses: 2+: Dorsalis Pedis (L), Dorsalis Pedis (R) Skin: Other (ulcerating lesion of the posterior scalp) Neuro Extensive - Mental Status: Alert, Normal Mood/Affect, Disorientation to Time, Memory Loss-Recent Events Psychiatric: Alert, Normal Affect, Normal Mood Sepsis Event Note - Evaluation Sepsis Screening Result: No Definite Risk - Focused Exam Vital Signs: Vital Signs Temp Pulse Resp BP Pulse Ox 07/28/20 14:05 36.3 C 72 18 136/82 95 - Problem List (1) Memory loss or impairment SNOMED Code(s): 945095791 ICD Code: R41.3 - OTHER AMNESIA Status: Acute Priority: High Current Visit: Yes (2) Severe muscle deconditioning SNOMED Code(s): 429330194 ICD Code: R29.898 - OT SYMPTOMS AND SIGNS INVOLVING THE MUSCULOSKELETAL SYSTEM Status: Acute Priority: High Current Visit: Yes (3) Syncope and collapse SNOMED Code(s): 711314146 ICD Code: R55 - SYNCOPE AND COLLAPSE Status: Acute Priority: High Current Visit: No (4) Weakness SNOMED Code(s): 83131878 ICD Code: R53.1 - WEAKNESS Status: Acute Priority: High Current Visit: Yes Problem Details: Possible CVA like symptoms but Ct head negative and MRI unable to be done due to pacemaker Problem List Initiated/Reviewed/Updated: Yes Orders Last 24hrs: Active Orders 24 hr Category Date Time Status Admission Status [Patient Status] [ADT] Routine ADT 07/28/20 14:00 Active Oxygen Therapy [RC] Care 07/28/20 12:55 Active OT Evaluation and Treatment [CONS] Routine Cons 07/28/20 12:54 Active PT Evaluation and Treatment [CONS] Routine Cons 07/28/20 12:53 Active Heart Healthy Diet [DIET] Diet 07/28/20 Dinner Ordered CULTURE MRSA SURVEY [RM] Routine Lab 07/28/20 16:37 Ordered Code Status [Resuscitation Status] Routine Resus Stat 07/28/20 12:51 Ordered Assessment/Plan Comment:: Patient will continue with PT/OT and placement planning. He has shown steady improvement in strength and ADL's. There are continued concerns with memory and self cares. He will likely need care center level of placement.
[2020-07-28] MEDS: Albuterol/Ipratropium 3.0-0.5 MG/3 ML Neb Soln NEB SCH ×3 (19:10→23:05)
[2020-07-28] MEDS ORDERED: Furosemide 20 MG Tab PO SCH (20:00)
[2020-07-28] MEDS: Metoprolol Tartrate 25 MG Tab PO SCH (20:06)
[2020-07-28] MEDS: atorvaSTATin 40 MG Tab PO SCH (20:06)
[2020-07-28] MEDS: Formoterol/Mometasone 200-5 MCG 8.8 GM Inhaler IH SCH (20:07)
[2020-07-28] MEDS: Melatonin 3 MG Tab PO PRN (20:07)
[2020-07-29] MEDS: Omeprazole 20 MG Cap.CR PO SCH ×2 (06:23→19:59)
[2020-07-29] MEDS: ANORO ELLIPTA INH SCH (07:34)
[2020-07-29] MEDS: Formoterol/Mometasone 200-5 MCG 8.8 GM Inhaler IH SCH ×2 (07:34→19:58)
[2020-07-29] MEDS: Aspirin 81 MG Tab.EC PO SCH (07:36)
[2020-07-29] MEDS: Lisinopril 10 MG Tab PO SCH (07:36)
[2020-07-29] MEDS: Furosemide 20 MG Tab PO SCH ×2 (07:36→16:42)
[2020-07-29] MEDS: amLODIPine 5 MG Tab PO SCH (07:36)
[2020-07-29] MEDS: Tamsulosin 0.4 MG Cap.ER PO SCH (07:36)
[2020-07-29] MEDS: Metoprolol Tartrate 25 MG Tab PO SCH ×2 (07:37→20:00)
[2020-07-29] MEDS: Ferrous Sulfate 325 MG Tab PO SCH ×2 (07:38→16:42)
[2020-07-29] MEDS: atorvaSTATin 40 MG Tab PO SCH (19:59)
[2020-07-30] MEDS: Omeprazole 20 MG Cap.CR PO SCH ×2 (06:31→20:19)
[2020-07-30] MEDS: Aspirin 81 MG Tab.EC PO SCH (08:24)
[2020-07-30] MEDS: Furosemide 20 MG Tab PO SCH ×2 (08:24→16:14)
[2020-07-30] MEDS: Ferrous Sulfate 325 MG Tab PO SCH ×2 (08:24→16:14)
[2020-07-30] MEDS: Lisinopril 10 MG Tab PO SCH (08:24)
[2020-07-30] MEDS: Metoprolol Tartrate 25 MG Tab PO SCH ×2 (08:26→20:21)
[2020-07-30] MEDS: amLODIPine 5 MG Tab PO SCH (08:26)
[2020-07-30] MEDS: ANORO ELLIPTA INH SCH (08:26)
[2020-07-30] MEDS: Tamsulosin 0.4 MG Cap.ER PO SCH (08:26)
[2020-07-30] MEDS: Formoterol/Mometasone 200-5 MCG 8.8 GM Inhaler IH SCH ×2 (08:27→20:22)
[2020-07-30] MEDS: Melatonin 3 MG Tab PO PRN (20:19)
[2020-07-30] MEDS: atorvaSTATin 40 MG Tab PO SCH (20:22)
[2020-07-31] MEDS: Omeprazole 20 MG Cap.CR PO SCH ×2 (09:00→19:41)
[2020-07-31] MEDS: Lisinopril 10 MG Tab PO SCH (09:00)
[2020-07-31] MEDS: Aspirin 81 MG Tab.EC PO SCH (09:00)
[2020-07-31] MEDS: amLODIPine 5 MG Tab PO SCH (09:00)
[2020-07-31] MEDS: Ferrous Sulfate 325 MG Tab PO SCH ×2 (09:00→17:34)
[2020-07-31] MEDS: Formoterol/Mometasone 200-5 MCG 8.8 GM Inhaler IH SCH ×2 (09:00→19:42)
[2020-07-31] MEDS: ANORO ELLIPTA INH SCH (09:00)
[2020-07-31] MEDS: Tamsulosin 0.4 MG Cap.ER PO SCH (09:00)
[2020-07-31] MEDS: Metoprolol Tartrate 25 MG Tab PO SCH ×2 (09:00→19:43)
[2020-07-31] MEDS: Furosemide 20 MG Tab PO SCH ×2 (09:00→16:35)
[2020-07-31] MEDS: Melatonin 3 MG Tab PO PRN (19:38)
[2020-07-31] MEDS: atorvaSTATin 40 MG Tab PO SCH (19:41)
[2020-08-01] MEDS: Ferrous Sulfate 325 MG Tab PO SCH ×2 (07:36→16:57)
[2020-08-01] MEDS: Omeprazole 20 MG Cap.CR PO SCH ×2 (07:36→19:32)
[2020-08-01] MEDS: Aspirin 81 MG Tab.EC PO SCH (07:37)
[2020-08-01] MEDS: amLODIPine 5 MG Tab PO SCH (07:37)
[2020-08-01] MEDS: Metoprolol Tartrate 25 MG Tab PO SCH ×2 (07:37→19:31)
[2020-08-01] MEDS: Furosemide 20 MG Tab PO SCH ×2 (07:37→15:30)
[2020-08-01] MEDS: Lisinopril 10 MG Tab PO SCH (07:37)
[2020-08-01] MEDS: Tamsulosin 0.4 MG Cap.ER PO SCH (07:37)
[2020-08-01] MEDS: ANORO ELLIPTA INH SCH (07:38)
[2020-08-01] MEDS: Formoterol/Mometasone 200-5 MCG 8.8 GM Inhaler IH SCH ×2 (07:38→19:31)
[2020-08-01] MEDS: atorvaSTATin 40 MG Tab PO SCH (19:31)
[2020-08-01] MEDS: Melatonin 3 MG Tab PO PRN (19:32)
[2020-08-02] MEDS: Omeprazole 20 MG Cap.CR PO SCH ×2 (06:09→20:20)
[2020-08-02] MEDS: Formoterol/Mometasone 200-5 MCG 8.8 GM Inhaler IH SCH ×2 (07:55→20:02)
[2020-08-02] MEDS: Lisinopril 10 MG Tab PO SCH (07:57)
[2020-08-02] MEDS: Ferrous Sulfate 325 MG Tab PO SCH ×2 (07:57→19:57)
[2020-08-02] MEDS: amLODIPine 5 MG Tab PO SCH (07:58)
[2020-08-02] MEDS: Metoprolol Tartrate 25 MG Tab PO SCH ×2 (07:58→20:03)
[2020-08-02] MEDS: Aspirin 81 MG Tab.EC PO SCH (07:58)
[2020-08-02] MEDS: Furosemide 20 MG Tab PO SCH ×2 (07:58→18:00)
[2020-08-02] MEDS: Tamsulosin 0.4 MG Cap.ER PO SCH (07:58)
[2020-08-02] MEDS: ANORO ELLIPTA INH SCH (08:01)
[2020-08-02] MEDS ORDERED: Furosemide 20 MG Tab PO ONE (13:38)
--- NOTE | 2020-08-02 13:39 | PCM.PN ---
- General Info Date of Service: 08/02/20 Functional Status: Reports: Pain Controlled, Tolerating Diet, Ambulating, Urinating - Review of Systems General: Reports: No Symptoms HEENT: Reports: No Symptoms Pulmonary: Reports: No Symptoms Cardiovascular: Reports: No Symptoms Gastrointestinal: Reports: No Symptoms Genitourinary: Reports: No Symptoms Musculoskeletal: Reports: No Symptoms Skin: Reports: Other (head wound) Neurological: Reports: No Symptoms Psychiatric: Reports: No Symptoms - Patient Data Vitals - Most Recent: Last Vital Signs Temp 96.1 F L 08/02/20 08:00 Pulse 97 08/02/20 08:00 Resp 20 08/02/20 08:00 BP 128/74 08/02/20 08:00 Pulse Ox 96 08/02/20 08:00 Weight - Most Recent: 168 lb 7 oz Med Orders - Current: Current Medications Albuterol/Ipratropium (Duoneb 3.0-0.5 Mg/3 Ml) 3 ml NEB Q4H PRN PRN Reason: Shortness of Breath Amlodipine Besylate (Norvasc) 5 mg PO DAILY [facility] Last Admin: 08/02/20 07:58 Dose: 5 mg Documented by: Aspirin (Halfprin) 81 mg PO DAILY [facility] Last Admin: 08/02/20 07:58 Dose: 81 mg Documented by: Atorvastatin Calcium (Lipitor) 40 mg PO QPM [facility] Last Admin: 08/01/20 19:31 Dose: 40 mg Documented by: Ferrous Sulfate (Ferrous Sulfate) 325 mg PO BIDMEALS [facility] Last Admin: 08/02/20 07:57 Dose: 325 mg Documented by: Furosemide (Lasix) 20 mg PO BIDDIURETIC [facility] Last Admin: 08/02/20 07:58 Dose: 20 mg Documented by: Lisinopril (Prinivil) 10 mg PO DAILY [facility] Last Admin: 08/02/20 07:57 Dose: 10 mg Documented by: Lorazepam (Ativan) 0.5 mg PO TID PRN PRN Reason: Anxiety Melatonin (Melatonin) 6 mg PO BEDTIME PRN PRN Reason: Insomnia Last Admin: 08/01/20 19:32 Dose: 6 mg Documented by: Metoprolol Tartrate (Lopressor) 12.5 mg PO BID [facility] Last Admin: 08/02/20 07:58 Dose: 12.5 mg Documented by: Mometasone Furoate/Formoterol Fumar (Dulera 200-5 Mcg) 2 puff IH BID [facility] Last Admin: 08/02/20 07:55 Dose: 2 puff Documented by: Kd Ellipta 62.5- (25 Mcg*Pt Own Med*) 0 puff INH DAILY [facility] Last Admin: 08/02/20 08:01 Dose: 1 puff Documented by: Omeprazole (Omeprazole) 40 mg PO BIDAC [facility] Last Admin: 08/02/20 06:09 Dose: 40 mg Documented by: Tamsulosin HCl (Flomax) 0.4 mg PO DAILY [facility] Last Admin: 08/02/20 07:58 Dose: 0.4 mg Documented by: Tramadol HCl (Ultram) 50 mg PO Q6H PRN PRN Reason: Pain Discontinued Medications Albuterol/Ipratropium (Duoneb 3.0-0.5 Mg/3 Ml) 3 ml NEB Q4H [facility] Last Admin: 07/28/20 23:05 Dose: Not Given Documented by: Furosemide (Lasix) 20 mg PO BID [facility] Last Admin: 07/28/20 20:13 Dose: Not Given Documented by: Non-Formulary Medication (Melatonin/Pyridoxine Hcl (B6) [Melatonin 3 Mg Tablet]) 2 tab PO BEDTIME PRN PRN Reason: Insomnia Sepsis Event Note - Evaluation Sepsis Screening Result: No Definite Risk - Focused Exam Vital Signs: Vital Signs Temp Pulse Pulse Resp BP BP Pulse Ox 08/02/20 08:00 96.1 F L 97 20 128/74 96 08/02/20 07:58 83 128/74 08/02/20 07:57 128/74 - Problem List Review Problem List Initiated/Reviewed/Updated: Yes - Assessment Assessment:: Patient denies SOB, Fever, CP, abdominal pain, N/V/D. Patient has increased weight today, lung sounds have slight crackles bilaterally. Will schedule nebs today, order labs, and increase lasix today. He has no c/o and has agreed to [facility]. - Plan Plan:: Patient will continue with PT/OT and placement planning. He has shown steady improvement in strength and ADL's. There are continued concerns with memory and self cares. He will likely need care center level of placement.
[2020-08-02] MEDS: Albuterol/Ipratropium 3.0-0.5 MG/3 ML Neb Soln NEB SCH ×3 (14:20→22:35)
[2020-08-02] MEDS: atorvaSTATin 40 MG Tab PO SCH (20:03)
[2020-08-03] MEDS: Omeprazole 20 MG Cap.CR PO SCH ×2 (06:32→19:16)
[2020-08-03] MEDS: Albuterol/Ipratropium 3.0-0.5 MG/3 ML Neb Soln NEB SCH ×3 (06:32→10:06)
[2020-08-03] MEDS: Formoterol/Mometasone 200-5 MCG 8.8 GM Inhaler IH SCH ×2 (08:47→19:21)
[2020-08-03] MEDS: Ferrous Sulfate 325 MG Tab PO SCH ×2 (08:48→17:01)
[2020-08-03] MEDS: Furosemide 20 MG Tab PO SCH ×2 (08:48→15:46)
[2020-08-03] MEDS: Tamsulosin 0.4 MG Cap.ER PO SCH (08:48)
[2020-08-03] MEDS: Aspirin 81 MG Tab.EC PO SCH (08:48)
[2020-08-03] MEDS: ANORO ELLIPTA INH SCH (08:48)
[2020-08-03] MEDS: Lisinopril 10 MG Tab PO SCH (08:54)
[2020-08-03] MEDS: amLODIPine 5 MG Tab PO SCH (08:54)
[2020-08-03] MEDS: Metoprolol Tartrate 25 MG Tab PO SCH ×2 (08:54→19:15)
[2020-08-03] MEDS: atorvaSTATin 40 MG Tab PO SCH (19:15)
[2020-08-03] MEDS: Melatonin 3 MG Tab PO PRN (19:17)
[2020-08-04] MEDS: Omeprazole 20 MG Cap.CR PO SCH ×2 (06:20→19:35)
[2020-08-04] MEDS: Metoprolol Tartrate 25 MG Tab PO SCH ×2 (08:09→19:42)
[2020-08-04] MEDS: Aspirin 81 MG Tab.EC PO SCH (08:11)
[2020-08-04] MEDS: amLODIPine 5 MG Tab PO SCH (08:11)
[2020-08-04] MEDS: Ferrous Sulfate 325 MG Tab PO SCH ×2 (08:12→17:22)
[2020-08-04] MEDS: Tamsulosin 0.4 MG Cap.ER PO SCH (08:12)
[2020-08-04] MEDS: Lisinopril 10 MG Tab PO SCH (08:13)
[2020-08-04] MEDS: Furosemide 20 MG Tab PO SCH ×2 (08:13→17:22)
[2020-08-04] MEDS: Formoterol/Mometasone 200-5 MCG 8.8 GM Inhaler IH SCH ×2 (08:17→19:35)
[2020-08-04] MEDS: ANORO ELLIPTA INH SCH (08:24)
--- NOTE | 2020-08-04 13:25 | PCM.PN ---
- General Info Date of Service: 08/04/20 Subjective Update: Called regarding head wound. Pt has a known large area on his head currently under eval for malignancy. Bx is pending. This AM nursing noted that patient's bandage had discharge on it. She removed it and noted a foul smell. She cleaned and redressed the wound. Upon eval, wound is erythematous with clear discharge. No surrounding erythema to the scalp. Some blood noted along the wound edges. Unclear if infected but can at least treat with bactroban to see if this improves it. Could also consider fungal infection but would defer to a local provider who is able to visualize it in person. - Patient Data Vitals - Most Recent: Last Vital Signs Temp 36.3 C 08/04/20 08:00 Pulse 62 08/04/20 08:09 Resp 20 08/04/20 08:00 BP 123/68 08/04/20 08:13 Pulse Ox 97 08/04/20 08:00 Weight - Most Recent: 82.554 kg Med Orders - Current: Current Medications Albuterol/Ipratropium (Duoneb 3.0-0.5 Mg/3 Ml) 3 ml NEB Q4H PRN PRN Reason: Shortness of Breath Amlodipine Besylate (Norvasc) 5 mg PO DAILY [facility] Last Admin: 08/04/20 08:11 Dose: 5 mg Documented by: Aspirin (Halfprin) 81 mg PO DAILY [facility] Last Admin: 08/04/20 08:11 Dose: 81 mg Documented by: Atorvastatin Calcium (Lipitor) 40 mg PO QPM [facility] Last Admin: 08/03/20 19:15 Dose: 40 mg Documented by: Ferrous Sulfate (Ferrous Sulfate) 325 mg PO BIDMEALS [facility] Last Admin: 08/04/20 08:12 Dose: 325 mg Documented by: Furosemide (Lasix) 20 mg PO BIDDIURETIC [facility] Last Admin: 08/04/20 08:13 Dose: 20 mg Documented by: Lisinopril (Prinivil) 10 mg PO DAILY [facility] Last Admin: 08/04/20 08:13 Dose: 10 mg Documented by: Lorazepam (Ativan) 0.5 mg PO TID PRN PRN Reason: Anxiety Melatonin (Melatonin) 6 mg PO BEDTIME PRN PRN Reason: Insomnia Last Admin: 08/03/20 19:17 Dose: 6 mg Documented by: Metoprolol Tartrate (Lopressor) 12.5 mg PO BID [facility] Last Admin: 08/04/20 08:09 Dose: 12.5 mg Documented by: Mometasone Furoate/Formoterol Fumar (Dulera 200-5 Mcg) 2 puff IH BID [facility] Last Admin: 08/04/20 08:17 Dose: 2 puff Documented by: Anoro Ellipta 62.5- (25 Mcg*Pt Own Med*) 0 puff INH DAILY [facility] Last Admin: 08/04/20 08:24 Dose: Not Given Documented by: Omeprazole (Omeprazole) 40 mg PO BIDAC [facility] Last Admin: 08/04/20 06:20 Dose: 40 mg Documented by: Tamsulosin HCl (Flomax) 0.4 mg PO DAILY [facility] Last Admin: 08/04/20 08:12 Dose: 0.4 mg Documented by: Tramadol HCl (Ultram) 50 mg PO Q6H PRN PRN Reason: Pain Discontinued Medications Albuterol/Ipratropium (Duoneb 3.0-0.5 Mg/3 Ml) 3 ml NEB Q4H [facility] Last Admin: 07/28/20 23:05 Dose: Not Given Documented by: Albuterol/Ipratropium (Duoneb 3.0-0.5 Mg/3 Ml) 3 ml NEB Q4H [facility] Stop: 08/03/20 12:00 Last Admin: 08/03/20 10:06 Dose: 3 ml Documented by: Furosemide (Lasix) 20 mg PO BID [facility] Last Admin: 07/28/20 20:13 Dose: Not Given Documented by: Furosemide (Lasix) 20 mg PO ONETIME ONE Stop: 08/02/20 13:39 Last Admin: 08/02/20 14:10 Dose: 20 mg Documented by: Non-Formulary Medication (Melatonin/Pyridoxine Hcl (B6) [Melatonin 3 Mg Tablet]) 2 tab PO BEDTIME PRN PRN Reason: Insomnia Sepsis Event Note - Evaluation Sepsis Screening Result: No Definite Risk - Focused Exam Vital Signs: Vital Signs Temp Pulse Pulse Resp BP BP Pulse Ox 08/04/20 08:13 123/68 08/04/20 08:11 123/68 08/04/20 08:09 62 123/68 08/04/20 08:00 36.3 C 63 20 123/68 97 - Problem List Review Problem List Initiated/Reviewed/Updated: Yes - Plan Plan:: .
[2020-08-04] MEDS: Mupirocin Oint 22 GM Tube TOP SCH ×2 (13:45→19:35)
[2020-08-04] MEDS: atorvaSTATin 40 MG Tab PO SCH (19:35)
[2020-08-04] MEDS: Melatonin 3 MG Tab PO PRN (19:35)
[2020-08-05] MEDS: Omeprazole 20 MG Cap.CR PO SCH ×2 (06:50→20:01)
[2020-08-05] MEDS: Formoterol/Mometasone 200-5 MCG 8.8 GM Inhaler IH SCH ×2 (07:33→20:02)
[2020-08-05] MEDS: Metoprolol Tartrate 25 MG Tab PO SCH ×2 (07:34→20:01)
[2020-08-05] MEDS: Ferrous Sulfate 325 MG Tab PO SCH ×2 (07:34→16:15)
[2020-08-05] MEDS: amLODIPine 5 MG Tab PO SCH (07:34)
[2020-08-05] MEDS: Furosemide 20 MG Tab PO SCH ×2 (07:35→15:07)
[2020-08-05] MEDS: Mupirocin Oint 22 GM Tube TOP SCH ×3 (07:35→20:21)
[2020-08-05] MEDS: Aspirin 81 MG Tab.EC PO SCH (07:35)
[2020-08-05] MEDS: Lisinopril 10 MG Tab PO SCH (07:35)
[2020-08-05] MEDS: Tamsulosin 0.4 MG Cap.ER PO SCH (07:35)
[2020-08-05] MEDS: ANORO ELLIPTA INH SCH (07:36)
[2020-08-05] MEDS: Albuterol/Ipratropium 3.0-0.5 MG/3 ML Neb Soln NEB PRN (18:40)
[2020-08-05] MEDS: atorvaSTATin 40 MG Tab PO SCH (20:00)
[2020-08-05] MEDS: Melatonin 3 MG Tab PO PRN (20:02)
[2020-08-06] MEDS: Omeprazole 20 MG Cap.CR PO SCH ×2 (06:22→19:34)
[2020-08-06] MEDS: Ferrous Sulfate 325 MG Tab PO SCH ×2 (07:57→17:25)
[2020-08-06] MEDS: amLODIPine 5 MG Tab PO SCH (07:57)
[2020-08-06] MEDS: Aspirin 81 MG Tab.EC PO SCH (07:57)
[2020-08-06] MEDS: Metoprolol Tartrate 25 MG Tab PO SCH ×2 (07:58→19:35)
[2020-08-06] MEDS: Tamsulosin 0.4 MG Cap.ER PO SCH (07:58)
[2020-08-06] MEDS: Lisinopril 10 MG Tab PO SCH (07:59)
[2020-08-06] MEDS: Furosemide 20 MG Tab PO SCH (07:59)
[2020-08-06] MEDS: Formoterol/Mometasone 200-5 MCG 8.8 GM Inhaler IH SCH ×2 (08:01→19:39)
[2020-08-06] MEDS: ANORO ELLIPTA INH SCH (08:01)
[2020-08-06] MEDS: Mupirocin Oint 22 GM Tube TOP SCH ×3 (08:01→19:39)
[2020-08-06] MEDS: Albuterol/Ipratropium 3.0-0.5 MG/3 ML Neb Soln NEB PRN ×2 (10:49→19:40)
--- NOTE | 2020-08-06 11:33 | PCM.PN ---
- General Info Date of Service: 08/06/20 Subjective Update: Patient complained earlier to nursing staff of being short of breath and was found wheezing. He received a neb treatment. Nursing noticed right arm swelling, but patient denies any pain. Posterior scalp ulcerating lesion receiving wound care and patient denies any pain, fever, N/V/D, abdominal pain, or chest pain. Patient denies shortness of breath and cough when I asked him. Functional Status: Reports: Tolerating Diet, Ambulating - Review of Systems General: Reports: No Symptoms HEENT: Reports: No Symptoms Pulmonary: Reports: No Symptoms Cardiovascular: Reports: No Symptoms Gastrointestinal: Reports: No Symptoms Genitourinary: Reports: No Symptoms Skin: Reports: Other (posterior scalp lesion) - Patient Data Vitals - Most Recent: Last Vital Signs Temp 36.4 C 08/06/20 07:35 Pulse 91 08/06/20 07:58 Resp 48 H 08/06/20 11:01 BP 139/65 08/06/20 07:59 Pulse Ox 94 L 08/06/20 07:35 Weight - Most Recent: 82.372 kg (Patient with recent weight gain) Med Orders - Current: Current Medications Albuterol/Ipratropium (Duoneb 3.0-0.5 Mg/3 Ml) 3 ml NEB Q4H PRN PRN Reason: Shortness of Breath Last Admin: 08/06/20 10:49 Dose: 3 ml Documented by: Amlodipine Besylate (Norvasc) 5 mg PO DAILY [facility] Last Admin: 08/06/20 07:57 Dose: 5 mg Documented by: Aspirin (Halfprin) 81 mg PO DAILY [facility] Last Admin: 08/06/20 07:57 Dose: 81 mg Documented by: Atorvastatin Calcium (Lipitor) 40 mg PO QPM [facility] Last Admin: 08/05/20 20:00 Dose: 40 mg Documented by: Ferrous Sulfate (Ferrous Sulfate) 325 mg PO BIDMEALS [facility] Last Admin: 08/06/20 07:57 Dose: 325 mg Documented by: Furosemide (Lasix) 20 mg PO BIDDIURETIC [facility] Last Admin: 08/06/20 07:59 Dose: 20 mg Documented by: Lisinopril (Prinivil) 10 mg PO DAILY [facility] Last Admin: 08/06/20 07:59 Dose: 10 mg Documented by: Lorazepam (Ativan) 0.5 mg PO TID PRN PRN Reason: Anxiety Melatonin (Melatonin) 6 mg PO BEDTIME PRN PRN Reason: Insomnia Last Admin: 08/05/20 20:02 Dose: 6 mg Documented by: Metoprolol Tartrate (Lopressor) 12.5 mg PO BID [facility] Last Admin: 08/06/20 07:58 Dose: 12.5 mg Documented by: Mometasone Furoate/Formoterol Fumar (Dulera 200-5 Mcg) 2 puff IH BID [facility] Last Admin: 08/06/20 08:01 Dose: 2 puff Documented by: Mupirocin (Bactroban Oint) 1 gm TOP TID [facility] Last Admin: 08/06/20 08:01 Dose: 1 applic Documented by: Kd Ellipta 62.5- (25 Mcg*Pt Own Med*) 0 puff INH DAILY [facility] Last Admin: 08/06/20 08:01 Dose: 1 puff Documented by: Omeprazole (Omeprazole) 40 mg PO BIDAC [facility] Last Admin: 08/06/20 06:22 Dose: 40 mg Documented by: Tamsulosin HCl (Flomax) 0.4 mg PO DAILY [facility] Last Admin: 08/06/20 07:58 Dose: 0.4 mg Documented by: Tramadol HCl (Ultram) 50 mg PO Q6H PRN PRN Reason: Pain Discontinued Medications Albuterol/Ipratropium (Duoneb 3.0-0.5 Mg/3 Ml) 3 ml NEB Q4H [facility] Last Admin: 07/28/20 23:05 Dose: Not Given Documented by: Albuterol/Ipratropium (Duoneb 3.0-0.5 Mg/3 Ml) 3 ml NEB Q4H [facility] Stop: 08/03/20 12:00 Last Admin: 08/03/20 10:06 Dose: 3 ml Documented by: Furosemide (Lasix) 20 mg PO BID [facility] Last Admin: 07/28/20 20:13 Dose: Not Given Documented by: Furosemide (Lasix) 20 mg PO ONETIME ONE Stop: 08/02/20 13:39 Last Admin: 08/02/20 14:10 Dose: 20 mg Documented by: Non-Formulary Medication (Melatonin/Pyridoxine Hcl (B6) [Melatonin 3 Mg Tablet]) 2 tab PO BEDTIME PRN PRN Reason: Insomnia - Exam General: Alert, Other (disoriented to time) HEENT: Pupils Equal, Pupils Reactive, EOMI Neck: Supple, Trachea Midline Lungs: Clear to Auscultation, Other (tachypnea) Cardiovascular: Regular Rate, Regular Rhythm, No Murmurs GI/Abdominal Exam: Normal Bowel Sounds, Soft, Non-Tender, No Distention Extremities: Normal Range of Motion, Non-Tender, No Pedal Edema, Normal Capillary Refill, Other (right arm with mild edema; non-pitting) Skin: Warm, Dry, Intact, Other (posterior scalp ulcerating lesion) Neurological: No New Focal Deficit, Normal Gait, Normal Speech Psy/Mental Status: Alert, Normal Affect, Normal Mood Sepsis Event Note - Evaluation Sepsis Screening Result: No Definite Risk - Focused Exam Vital Signs: Vital Signs Temp Pulse Pulse Resp BP BP Pulse Ox 08/06/20 11:01 48 H 08/06/20 07:59 139/65 08/06/20 07:58 91 139/65 08/06/20 07:57 139/65 08/06/20 07:35 36.4 C 91 28 H 139/65 94 L - Problem List Review Problem List Initiated/Reviewed/Updated: Yes - My Orders Last 24 Hours: My Active Orders 08/06/20 09:45 CBC WITH AUTO DIFF [HEME] Routine 08/06/20 09:46 B-TYPE NATRIURETIC PEPTIDE,BNP [CHEM] Routine COMPREHENSIVE METABOLIC PN,CMP [CHEM] Routine 08/06/20 10:55 Chest 1V Frontal [CR] Routine 08/06/20 Lunch 2 Gram Sodium Diet [DIET] Fluid Restriction [DIET] - Assessment Assessment:: Increased lasix to 20 mg PO in the AM and lasix 40 mg PO in the PM. Repeat labs tomorrow afternoon. Fluid restriction and low sodium diet. Continue deedee hose daily. - Plan Plan:: .
[2020-08-06] MEDS ORDERED: Furosemide 40 MG Tab PO SCH (14:00)
--- NOTE | 2020-08-06 14:18 | CR ---
CLINICAL DATA: Cough, SOB. FRONTAL VIEW OF THE CHEST, 06 AUGUST 2020: Comparison is made to a prior exam dated 21 July 2020. The heart remains enlarged, unchanged. The cardiac pacer and pacer wires remain unchanged in position. There is persistent pulmonary vascular congestion with progression from the prior exam. There is interstitial edema throughout both lungs. These findings are consistent with congestive failure. There are also patchy infiltrates in both lungs. These may be part of the pulmonary edema spectrum. Pneumonia should be considered. The exam is otherwise unchanged from the prior. Job: [id number] MTDD
[2020-08-06] MEDS: atorvaSTATin 40 MG Tab PO SCH (19:39)
[2020-08-06] MEDS ORDERED: Mineral Oil/Petrolatum,Hydrophilic Ointment 100 GM Jar TOP PRN (19:58)
[2020-08-06] MEDS ORDERED: Vitamins A and D Oint 5 GM UD Packet TOP SCH (20:00)
[2020-08-07] MEDS: Albuterol/Ipratropium 3.0-0.5 MG/3 ML Neb Soln NEB PRN (06:31)
[2020-08-07] MEDS: Omeprazole 20 MG Cap.CR PO SCH (06:31)
[2020-08-07] MEDS: Ferrous Sulfate 325 MG Tab PO SCH (07:42)
[2020-08-07] MEDS: amLODIPine 5 MG Tab PO SCH (07:42)
[2020-08-07] MEDS: Metoprolol Tartrate 25 MG Tab PO SCH (07:43)
[2020-08-07] MEDS: Tamsulosin 0.4 MG Cap.ER PO SCH (07:43)
[2020-08-07] MEDS: Mupirocin Oint 22 GM Tube TOP SCH (07:44)
[2020-08-07] MEDS: Aspirin 81 MG Tab.EC PO SCH (07:44)
[2020-08-07] MEDS: Formoterol/Mometasone 200-5 MCG 8.8 GM Inhaler IH SCH (07:44)
[2020-08-07] MEDS: Lisinopril 10 MG Tab PO SCH (07:45)
[2020-08-07 07:46] VITALS: BP 128/61
[2020-08-07] MEDS: ANORO ELLIPTA INH SCH (07:47)
[2020-08-07] MEDS ORDERED: Furosemide 20 MG Tab PO SCH (08:00)
[2020-08-07 08:10] VITALS: PULSE 97
[2020-08-07] MEDS ORDERED: Furosemide 40 MG Tab PO SCH (14:00)
== END 2020-08-07 10:05 | disposition critical access hospital (66) | DRG 948 ==
LOC: LB.MS 14:32
PROVIDERS: ADMIT Family Medicine; ATTEND Family Medicine
DX: R53.1 Weakness (principal); J96.11 Chronic respiratory failure with hypoxia; Z79.82 Long term (current) use of aspirin; Z79.899 Other long term (current) drug therapy; H91.90 Unspecified hearing loss, unspecified ear; H54.7 Unspecified visual loss; I48.91 Unspecified atrial fibrillation; I25.10 Atherosclerotic heart disease of native coronary artery without angina pectoris; I50.9 Heart failure, unspecified; E78.00 Pure hypercholesterolemia, unspecified; I11.0 Hypertensive heart disease with heart failure; Z95.0 Presence of cardiac pacemaker; J44.9 Chronic obstructive pulmonary disease, unspecified; K21.9 Gastro-esophageal reflux disease without esophagitis; N40.0 Benign prostatic hyperplasia without lower urinary tract symptoms; M19.90 Unspecified osteoarthritis, unspecified site; Z86.73 Personal history of transient ischemic attack (TIA), and cerebral infarction without residual deficits; F41.9 Anxiety disorder, unspecified; E87.6 Hypokalemia; E83.42 Hypomagnesemia; Z86.010 Personal history of colon polyps; Z79.01 Long term (current) use of anticoagulants; Z85.828 Personal history of other malignant neoplasm of skin; Z96.649 Presence of unspecified artificial hip joint; R41.3 Other amnesia; R29.898 Other symptoms and signs involving the musculoskeletal system; R55 Syncope and collapse; R06.2 Wheezing; L98.499 Non-pressure chronic ulcer of skin of other sites with unspecified severity; M79.89 Other specified soft tissue disorders
CPT/HCPCS: 36415; 71045; 80053; 83880; 85025; 97110-GP; 97116-GP; 97161-GP; 97165-GO; 97530-GP; 97535-GO; A9270-GY; J7620-GY

== ENCOUNTER 2020-08-07 09:51 | Inpatient (IN) | payer MEDICARE ==
[2020-08-07] MEDS ORDERED: Sodium Chloride 0.9% 10 ML Syringe FLUSH PRN (09:54)
[2020-08-07] MEDS ORDERED: Azithromycin 500 MG Tab PO ONE (09:56)
[2020-08-07] MEDS ORDERED: cefTRIAXone 1 GM in Sodium Chloride 0.9% 50 ML IV ONE (09:56)
[2020-08-07] MEDS ORDERED: methylPREDNISolone Sodium Succinate 125 MG/2 ML SDV IV ONE (10:00)
--- NOTE | 2020-08-07 10:12 | PCM.HP.2 ---
H&P History of Present Illness - General Date of Service: 08/07/20 Admit Problem/Dx: Admission Diagnosis/Problem Admission Diagnosis/Problem Pneumonia Pneumonia and CHF exacerbation Source of Information: Patient, Old Records History Limitations: Reports: No Limitations - History of Present Illness Initial Comments - Free Text/Narative: Patient is an 80 y/o male with PMHx significant for CHF and stage I colon cancer, presented with tachypnea, left arm edema, and weight gain the past few days. Patient was a swing bed patient, but work up yesterday showed elevated BNP and CXR showed pulmonary vascular congestion and right lower lobe infiltrate. Patient is already on lasix and it was increased last night, which resulted with 1 pound weight loss today and decreased in BNP. Patient doesn't complain about anything and denies fever, cough, chest pain, N/V/D, or dysuria. - Related Data Allergies/Adverse Reactions: Allergies Allergy/AdvReac Type Severity Reaction Status Date / Time No Known Allergies Allergy Verified 07/28/20 16:46 Home Medications: Home Meds Aspirin [Halfprin] 81 mg PO DAILY 01/18/15 [History] Lisinopril 1 tab PO DAILY 01/18/15 [History] amLODIPine [Norvasc] 1 tab PO DAILY 01/31/16 [History] atorvaSTATin Calcium [Atorvastatin Calcium] 40 mg PO QPM 01/31/16 [History] Mometasone/Formoterol [Dulera 200 Mcg/5 Mcg Inhaler] 2 puff IH BID 06/21/20 [History] traMADol [Ultram] 1 tab PO Q6H PRN 06/21/20 [History] Albuterol/Ipratropium [DuoNeb 3.0-0.5 MG/3 ML] 1 ampule NEB Q4H PRN 07/28/20 [History] Ferrous Sulfate 1 tab PO BIDMEALS 07/28/20 [History] Furosemide 1 tab PO BID 07/28/20 [History] LORazepam [Ativan] 1 tab PO TID PRN 07/28/20 [History] Melatonin 2 tab PO BEDTIME PRN 07/28/20 [History] Metoprolol Tartrate 0.5 tab PO BID 07/28/20 [History] Omeprazole 40 mg PO BIDAC 07/28/20 [History] Tamsulosin [Tamsulosin 24 Hr] 1 cap PO DAILY 07/28/20 [History] Umeclidinium Brm/Vilanterol Tr [Anoro Ellipta 62.5-25 MCG] 1 puff IH DAILY 07/28/20 [History] Mupirocin Oint [Bactroban Oint] 1 applic TOP TID 08/07/20 [History] Vitamins A and D [Vitamin A & D] 1 applic TOP BEDTIME 08/07/20 [History] Past Medical History HEENT History: Reports: Hard of Hearing, Impaired Vision Cardiovascular History: Reports: Afib, CAD, Heart Failure, High Cholesterol, Hypertension, Pacemaker, SOB on Exertion Respiratory History: Reports: Bronchitis, Recurrent, COPD, SOB, Other (See Below) Other Respiratory History: chronic respiratory failure with hypoxia Gastrointestinal History: Reports: Colon Polyp, GERD, GI Bleed Genitourinary History: Reports: BPH Musculoskeletal History: Reports: Osteoarthritis Neurological History: Reports: CVA Psychiatric History: Reports: Anxiety Endocrine/Metabolic History: Reports: Hypokalemia, Hypomagnesemia Hematologic History: Reports: Anticoagulation Therapy Oncologic (Cancer) History: Reports: Basal Cell Carcinoma, Other (See Below) Other Oncologic History: hx of skin CA Dermatologic History: Reports: Melanoma, Other (See Below) Other Dermatologic History: hx of skin ca with CA removed from back lip nose and head - Infectious Disease History Infectious Disease History: Reports: Measles, Mumps Other Infectious Disease History: patient is unsure but states he might have had the measels and mumps and was the only one in his family that didn't get chicken pox - Past Surgical History Head Surgeries/Procedures: Reports: None Cardiovascular Surgical History: Reports: Pacer, Other (See Below) GI Surgical History: Reports: Colonoscopy, Polypectomy Neurological Surgical History: Reports: None Musculoskeletal Surgical History: Reports: Hip Replacement Dermatological Surgical History: Reports: Skin Biopsy Social & Family History - Family History Family Medical History: No Pertinent Family History Cardiac: Reports: CAD, Pacemaker Respiratory: Reports: COPD GI: Reports: None : Reports: None Neurological: Reports: None Psychiatric: Reports: None Endocrine/Metabolic: Reports: None Hematologic: Reports: None Immunologic: Reports: None Oncologic: Reports: Skin - Caffeine Use Caffeine Use: Reports: Coffee, Soda - Living Situation & Occupation Living situation: Reports: Single Occupation: Retired H&P Review of Systems - Review of Systems: Review Of Systems: See Below General: Reports: Weight Gain HEENT: Reports: No Symptoms Pulmonary: Reports: Other (tachypnea) Cardiovascular: Reports: Edema, Other (left upper extremity edema) Gastrointestinal: Reports: No Symptoms Genitourinary: Reports: No Symptoms Skin: Reports: No Symptoms Neurological: Reports: No Symptoms Exam - Exam Exam: See Below - Exam General: Alert, Oriented, Cooperative HEENT: PERRLA, Conjunctiva Clear Neck: Supple, Trachea Midline Lungs: Normal Respiratory Effort, Decreased Breath Sounds, Crackles, Other (decreased BS bilateral lower lobes; crackles to right lower and middle lung sweet) Cardiovascular: Regular Rate, Regular Rhythm GI/Abdominal Exam: Normal Bowel Sounds, Soft, Non-Tender, No Distention Extremities: Normal Range of Motion, No Pedal Edema, Other (left arm non-pitting edema) Skin: Warm, Dry, Intact, Other (posterior scalp ulcerating lesion) Psychiatric: Alert, Normal Affect #1 Interpretation EKG Date: 08/07/20 Time: 11:28 Rhythm: Other (electronic ventricular pacemaker) Rate (Beats/Min): 67 [place]: LAD-Left [place] Deviation P-Wave: Absent QRS: Normal ST-T: Normal QT: Normal *Q Meaningful Use (ADM) - VTE Risk Assess *Q Each Risk Factor Represents 1 Point: Congestive heart failure (CHF), Serious lung disease including pneumonia Total Score 1 Point Risk Factors: 2 Each Risk Factor Represents 2 Points: Malignancy (present or previous) Total Score 2 Point Risk Factors: 2 Each Risk Factor Represents 3 Points: Age 75 Years or Greater Total Score 3 Point Risk Factors: 3 Problem List Initiated/Reviewed/Updated: Yes Orders Last 24hrs: Active Orders 24 hr Category Date Time Status Admission Diagnosis [ADT] Routine ADT 08/07/20 09:54 Ordered EKG Documentation Completion [RC] ASDIRECTED Care 08/07/20 09:57 Ordered Weight Daily [Height and Weight] [RC] DAILY Care 08/07/20 10:00 Ordered B-TYPE NATRIURETIC PEPTIDE,BNP [CHEM] DAILY Lab 08/08/20 09:58 Ordered B-TYPE NATRIURETIC PEPTIDE,BNP [CHEM] DAILY Lab 08/09/20 09:58 Ordered B-TYPE NATRIURETIC PEPTIDE,BNP [CHEM] DAILY Lab 08/10/20 09:58 Ordered CBC WITH AUTO DIFF [HEME] AM Lab 08/08/20 05:11 Ordered CBC WITH AUTO DIFF [HEME] AM Lab 08/09/20 05:11 Ordered CBC WITH AUTO DIFF [HEME] AM Lab 08/10/20 05:11 Ordered COMPREHENSIVE METABOLIC PN,CMP [CHEM] AM Lab 08/08/20 05:11 Ordered COMPREHENSIVE METABOLIC PN,CMP [CHEM] AM Lab 08/09/20 05:11 Ordered COMPREHENSIVE METABOLIC PN,CMP [CHEM] AM Lab 08/10/20 05:11 Ordered Potassium Chloride [Klor-Con M20] Med 08/07/20 10:00 Ordered 40 meq PO DAILY Sodium Chloride 0.9% [Saline Flush] Med 08/07/20 09:54 Ordered 10 ml FLUSH ASDIRECTED PRN cefTRIAXone [Rocephin] 1 gm Med 08/07/20 09:56 Ordered Sodium Chloride 0.9% [Normal Saline] 50 ml IV ONETIME Saline Lock Insert [OM.PC] Routine Oth 08/07/20 09:54 Ordered EKG 12 Lead [EK] Stat Ther 08/07/20 09:57 Ordered Medication Orders Ceftriaxone Sodium 1 gm/ (Sodium Chloride) 50 mls @ 100 mls/hr IV ONETIME ONE Stop: 08/07/20 10:25 Potassium Chloride (Klor-Con M20) 40 meq PO DAILY [facility] Sodium Chloride (Saline Flush) 10 ml FLUSH ASDIRECTED PRN PRN Reason: Keep Vein Open Assessment/Plan Comment:: Daily weights. EKG. Daily labs. Rocephin and Azithromycin. Lasix 40 mg PO AM and Lasix 20 mg PO PM. Solumedrol 80 mg IV. Panda hose daily. Ambulate patient. Sodium restriction diet <2 g. Fluid restriction <2 L daily. - Mortality Measure Prognosis:: Good
[2020-08-07] MEDS ORDERED: traMADol 50 MG Tab PO PRN (10:34)
[2020-08-07] MEDS ORDERED: Furosemide 20 MG Tab PO ONE (10:40)
[2020-08-07] MEDS: Potassium Chloride 20 MEQ Tab.ER PO SCH (11:02)
[2020-08-07] MEDS: Mupirocin Oint 22 GM Tube TOP SCH ×2 (13:50→19:52)
[2020-08-07] MEDS ORDERED: Furosemide 20 MG Tab PO SCH (14:00)
[2020-08-07] MEDS: Albuterol/Ipratropium 3.0-0.5 MG/3 ML Neb Soln NEB PRN ×2 (15:00→19:16)
[2020-08-07] MEDS: Ferrous Sulfate 325 MG Tab PO SCH (17:00)
[2020-08-07] MEDS: Sodium Chloride 0.9% 10 ML Syringe FLUSH SCH (19:41)
[2020-08-07] MEDS: Omeprazole 20 MG Cap.CR PO SCH (19:53)
[2020-08-07] MEDS: Formoterol/Mometasone 200-5 MCG 8.8 GM Inhaler IH SCH (19:54)
[2020-08-07] MEDS: Metoprolol Tartrate 25 MG Tab PO SCH (19:54)
[2020-08-07] MEDS: atorvaSTATin 40 MG Tab PO SCH (19:55)
[2020-08-07] MEDS: Melatonin 3 MG Tab PO PRN (19:56)
[2020-08-07] MEDS: Vitamins A and D Oint 5 GM UD Packet TOP SCH (19:59)
[2020-08-08] MEDS: Omeprazole 20 MG Cap.CR PO SCH ×2 (06:27→19:49)
[2020-08-08] MEDS: Formoterol/Mometasone 200-5 MCG 8.8 GM Inhaler IH SCH ×2 (07:34→19:49)
[2020-08-08] MEDS: amLODIPine 5 MG Tab PO SCH (07:35)
[2020-08-08] MEDS: Potassium Chloride 20 MEQ Tab.ER PO SCH (07:35)
[2020-08-08] MEDS: Ferrous Sulfate 325 MG Tab PO SCH ×2 (07:35→17:07)
[2020-08-08] MEDS: Aspirin 81 MG Tab.EC PO SCH (07:35)
[2020-08-08] MEDS: Tamsulosin 0.4 MG Cap.ER PO SCH (07:36)
[2020-08-08] MEDS: Metoprolol Tartrate 25 MG Tab PO SCH ×2 (07:36→19:50)
[2020-08-08] MEDS: Lisinopril 10 MG Tab PO SCH (07:37)
[2020-08-08] MEDS: Mupirocin Oint 22 GM Tube TOP SCH ×3 (07:39→19:50)
[2020-08-08] MEDS: Sodium Chloride 0.9% 10 ML Syringe FLUSH SCH ×2 (07:55→19:51)
[2020-08-08] MEDS ORDERED: Furosemide 40 MG Tab PO SCH (08:00)
[2020-08-08] MEDS ORDERED: Non-Formulary Medication 1 Each (Umeclidinium Brm/Vilanterol Tr [Anoro Ellipta 62.5-25 Mcg IH SCH (08:00)
--- NOTE | 2020-08-08 10:23 | PCM.PN ---
- General Info Date of Service: 08/08/20 Admission Dx/Problem (Free Text): Admission Diagnosis/Problem Admission Diagnosis/Problem Pneumonia Pneumonia and CHF exacerbation Subjective Update: Patient continues to deny any symptoms this morning. He denies any coughing or short of breath. Nursing noticed his left upper extremity with edema. He gained more weight overnight despite the new diet and increased lasix. Functional Status: Reports: Tolerating Diet, Ambulating, Urinating - Review of Systems General: Reports: No Symptoms HEENT: Reports: No Symptoms Pulmonary: Reports: No Symptoms Cardiovascular: Reports: Edema Gastrointestinal: Reports: No Symptoms Genitourinary: Reports: No Symptoms Skin: Reports: Other (lesion to posterior scalp) Neurological: Reports: No Symptoms Psychiatric: Reports: No Symptoms - Patient Data Vitals - Most Recent: Last Vital Signs Temp 36.4 C 08/08/20 07:41 Pulse 65 08/08/20 07:41 Resp 20 08/08/20 07:41 BP 121/67 08/08/20 07:41 Pulse Ox 96 08/08/20 07:41 Weight - Most Recent: 82.917 kg I&O - Last 24 Hours: Intake & Output 08/07/20 08/08/20 08/08/20 22:59 06:59 14:59 Intake Total 2420 600 Balance 2420 600 Lab Results Last 24 Hours: Laboratory Results - last 24 hr 08/08/20 08/08/20 08/08/20 Range/Units 08:15 08:15 08:15 WBC 7.4 D (4.0-11.0) K/uL RBC 3.61 L (4.50-6.50) M/uL Hgb 9.2 L (13.0-18.0) g/dL Hct 29.3 L (40.0-54.0) % MCV 81 (76-96) fL MCH 25.5 L (27.0-32.0) pg MCHC 31.4 (31.0-35.0) g/dL RDW 21.0 H (11.0-16.0) % Plt Count 238 (150-400) K/uL MPV 9.3 (6.0-10.0) fL Neut % (Auto) 86.4 H (45.0-70.0) % Lymph % (Auto) 6.6 L (20.0-40.0) % [place] % (Auto) 7.0 (3.0-10.0) % Eos % (Auto) 0.0 L (1.0-5.0) % Baso % (Auto) 0.0 (0.0-0.5) % Neut # (Auto) 6.43 (2.00-7.50) K/uL Lymph # (Auto) 0.49 L (1.50-4.00) K/uL [place] # (Auto) 0.52 (0.20-0.80) K/uL Eos # (Auto) 0.00 L (0.04-0.40) K/uL Baso # (Auto) 0.00 L (0.02-0.10) K/uL Sodium 132 L (136-145) mmol/L Potassium 4.6 (3.5-5.1) mmol/L Chloride 94 L (98-107) mmol/L Carbon Dioxide 24.2 (21.0-32.0) mmol/L Anion Gap 18.4 H (5.0-15.0) mmol/L BUN 14 (8-26) mg/dL Creatinine 0.98 (0.70-1.30) mg/dL Est Cr Clr Drug Dosing 63.79 mL/min Estimated GFR (MDRD) > 60 (>60) MLS/MIN BUN/Creatinine Ratio 14.3 (6-25) Glucose 103 H (74-100) mg/dL Calcium 8.2 L (8.5-10.1) mg/dL Total Bilirubin 0.5 D (0.0-1.0) mg/dL AST 38 H (15-37) U/L ALT 54 (12-78) U/L Alkaline Phosphatase 146 H (46-116) U/L B-Natriuretic Peptide 4435 H (0-450) pg/mL Total Protein 6.8 (6.4-8.2) g/dL Albumin 3.1 L (3.4-5.0) g/dL Globulin 3.7 (2.2-4.2) g/dL Albumin/Globulin Ratio 0.8 (0.8-2.0) Med Orders - Current: Current Medications Albuterol/Ipratropium (Duoneb 3.0-0.5 Mg/3 Ml) 3 ml NEB Q4H PRN PRN Reason: Shortness of Breath Last Admin: 08/07/20 19:16 Dose: 3 ml Documented by: Amlodipine Besylate (Norvasc) 5 mg PO DAILY [facility] Last Admin: 08/08/20 07:35 Dose: 5 mg Documented by: Aspirin (Halfprin) 81 mg PO DAILY [facility] Last Admin: 08/08/20 07:35 Dose: 81 mg Documented by: Atorvastatin Calcium (Lipitor) 40 mg PO QPM [facility] Last Admin: 08/07/20 19:55 Dose: 40 mg Documented by: Azithromycin (Zithromax) 250 mg PO DAILY [facility] Stop: 08/13/20 08:01 Ferrous Sulfate (Ferrous Sulfate) 325 mg PO BIDMEALS [facility] Last Admin: 08/08/20 07:35 Dose: 325 mg Documented by: Furosemide (Lasix) 40 mg PO DAILY [facility] Last Admin: 08/08/20 07:36 Dose: 40 mg Documented by: Furosemide (Lasix) 20 mg PO DAILY@1400 [facility] Last Admin: 08/07/20 13:50 Dose: 20 mg Documented by: Lisinopril (Prinivil) 10 mg PO DAILY [facility] Last Admin: 08/08/20 07:37 Dose: 10 mg Documented by: Lorazepam (Ativan) 0.5 mg PO TID PRN PRN Reason: Anxiety Melatonin (Melatonin) 6 mg PO BEDTIME PRN PRN Reason: Insomnia Last Admin: 08/07/20 19:56 Dose: 6 mg Documented by: Metoprolol Tartrate (Lopressor) 12.5 mg PO BID [facility] Last Admin: 08/08/20 07:36 Dose: 12.5 mg Documented by: Mometasone Furoate/Formoterol Fumar (Dulera 200-5 Mcg) 2 puff IH BID [facility] Last Admin: 08/08/20 07:34 Dose: 2 puff Documented by: Mupirocin (Bactroban Oint) 0 gm TOP TID [facility] Last Admin: 08/08/20 07:39 Dose: 1 applic Documented by: Non-Formulary Medication (Umeclidinium Brm/Vilanterol Tr [Anoro Ellipta 62.5-25 Mcg]) 1 puff IH DAILY [facility] Omeprazole (Omeprazole) 40 mg PO BIDAC [facility] Last Admin: 08/08/20 06:27 Dose: 40 mg Documented by: Potassium Chloride (Klor-Con M20) 40 meq PO DAILY [facility] Last Admin: 08/08/20 07:35 Dose: 40 meq Documented by: Sodium Chloride (Saline Flush) 10 ml FLUSH ASDIRECTED PRN PRN Reason: Keep Vein Open Sodium Chloride (Saline Flush) 10 ml FLUSH BID [facility] Last Admin: 08/08/20 07:55 Dose: 10 ml Documented by: Tamsulosin HCl (Flomax) 0.4 mg PO DAILY [facility] Last Admin: 08/08/20 07:36 Dose: 0.4 mg Documented by: Tramadol HCl (Ultram) 50 mg PO Q6H PRN PRN Reason: Pain Vitamin A/Vitamin D (Vitamin A & D) 0 gm TOP BEDTIME [facility] Last Admin: 08/07/20 19:59 Dose: 1 gm Documented by: Discontinued Medications Azithromycin (Zithromax) 500 mg PO ONETIME ONE Stop: 08/07/20 09:57 Last Admin: 08/07/20 11:03 Dose: 500 mg Documented by: Furosemide (Lasix) 20 mg PO ONETIME ONE Stop: 08/07/20 10:41 Last Admin: 08/07/20 11:02 Dose: 20 mg Documented by: Ceftriaxone Sodium 1 gm/ (Sodium Chloride) 50 mls @ 100 mls/hr IV ONETIME ONE Stop: 08/07/20 10:25 Last Admin: 08/07/20 11:03 Dose: 100 mls/hr Documented by: Methylprednisolone Sodium Succinate (Solu-Medrol) 80 mg IV ONETIME ONE Stop: 08/07/20 10:01 Last Admin: 08/07/20 11:03 Dose: 80 mg Documented by: - Exam General: Alert, Oriented, Cooperative Neck: Supple, Trachea Midline Lungs: Decreased Breath Sounds, Crackles, Other (tachypnea; decreased BS bilateral lower lobes; crackles to right lower lobe) Cardiovascular: Regular Rate, Regular Rhythm, No Murmurs GI/Abdominal Exam: Normal Bowel Sounds, Soft, Non-Tender, No Distention Extremities: No Pedal Edema, Normal Capillary Refill, Other (2+ pitting edema to left upper extremity) Skin: Warm, Dry, Intact Wound/Incisions: Healing Well, Other (posterior scalp ulcerating lesion) Neurological: No New Focal Deficit, Normal Gait, Normal Speech Psy/Mental Status: Alert, Normal Affect, Normal Mood Sepsis Event Note - Evaluation Sepsis Screening Result: No Definite Risk - Focused Exam Vital Signs: Vital Signs Temp Pulse Pulse Resp BP BP Pulse Ox 08/08/20 07:41 36.4 C 65 20 121/67 96 08/08/20 07:37 121/67 08/08/20 07:36 65 121/67 08/08/20 07:35 121/67 08/08/20 02:57 35.5 C L 68 28 H 118/66 95 - Problem List Review Problem List Initiated/Reviewed/Updated: Yes - My Orders Last 24 Hours: My Active Orders 08/07/20 09:54 Admission Diagnosis [ADT] Routine Sodium Chloride 0.9% [Saline Flush] 10 ml FLUSH ASDIRECTED PRN Saline Lock Insert [OM.PC] Routine 08/07/20 10:00 Weight Daily [Height and Weight] [RC] 08 Potassium Chloride [Klor-Con M20] 40 meq PO DAILY 08/07/20 10:27 Patient Status [ADT] Routine 08/07/20 10:34 Albuterol/Ipratropium [DuoNeb 3.0-0.5 MG/3 ML] 3 ml NEB Q4H PRN LORazepam [Ativan] 0.5 mg PO TID PRN Melatonin 6 mg PO BEDTIME PRN traMADol [Ultram] 50 mg PO Q6H PRN 08/07/20 10:37 RT Aerosol Therapy [RC] ASDIRECTED 08/07/20 11:28 Resuscitation Status Routine 08/07/20 14:00 Furosemide [Lasix] 20 mg PO DAILY@1400 Mupirocin Oint [Bactroban Oint] 0 gm TOP TID 08/07/20 Dinner 2 Gram Sodium Diet [DIET] Cardiac Diet [Heart Healthy Diet] [DIET] Fluid Restriction [DIET] Ferrous Sulfate 325 mg PO BIDMEALS 08/07/20 20:00 Metoprolol Tartrate [Lopressor] 12.5 mg PO BID Mometasone/Formoterol [Dulera 200-5 MCG] 2 puff IH BID Omeprazole 40 mg PO BIDAC Sodium Chloride 0.9% [Saline Flush] 10 ml FLUSH BID Vitamins A and D [Vitamin A & D] 0 gm TOP BEDTIME atorvaSTATin [Lipitor] 40 mg PO QPM 08/07/20 21:39 Oxygen Therapy Adult [Oxygen Therapy] [RC] PRN 08/08/20 08:00 Aspirin [Halfprin] 81 mg PO DAILY Furosemide [Lasix] 40 mg PO DAILY Tamsulosin [Flomax] 0.4 mg PO DAILY Umeclidinium Brm/Vilanterol Tr [Anoro Ellipta 62.5-25 MCG] 1 puff IH DAILY amLODIPine [Norvasc] 5 mg PO DAILY lisinopriL [Prinivil] 10 mg PO DAILY 08/08/20 10:30 Azithromycin [Zithromax] 250 mg PO DAILY 08/09/20 05:11 CBC WITH AUTO DIFF [HEME] AM COMPREHENSIVE METABOLIC PN,CMP [CHEM] AM 08/09/20 09:58 B-TYPE NATRIURETIC PEPTIDE,BNP [CHEM] DAILY 08/10/20 05:11 CBC WITH AUTO DIFF [HEME] AM COMPREHENSIVE METABOLIC PN,CMP [CHEM] AM 08/10/20 09:58 B-TYPE NATRIURETIC PEPTIDE,BNP [CHEM] DAILY - Plan Plan:: 08/07/2020: Daily weights. EKG. Daily labs. Rocephin and Azithromycin. Lasix 40 mg PO AM and Lasix 20 mg PO PM. Solumedrol 80 mg IV. Panda hose daily. Ambulate patient. Sodium restriction diet <2 g. Fluid restriction <2 L daily. 08/08/2020: Consulted hospitalist yesterday, but no note or new orders. BNP increased and weight has increased despite diet changes and increased lasix. Called e-hospitalist again for follow up.
[2020-08-08] MEDS ORDERED: Azithromycin 250 MG Tab PO SCH (10:30)
--- NOTE | 2020-08-08 12:38 | PCM.PN ---
- General Info Date of Service: 08/07/20 - Patient Data Vitals - Most Recent: Last Vital Signs Temp 97.5 F 08/08/20 07:41 Pulse 65 08/08/20 07:41 Resp 20 08/08/20 07:41 BP 121/67 08/08/20 07:41 Pulse Ox 96 08/08/20 07:41 Weight - Most Recent: 182 lb 12.8 oz I&O - Last 24 Hours: Intake & Output 08/07/20 08/08/20 08/08/20 22:59 06:59 14:59 Intake Total 2420 600 Balance 2420 600 Lab Results Last 24 Hours: Laboratory Results - last 24 hr 08/08/20 08/08/20 08/08/20 Range/Units 08:15 08:15 08:15 WBC 7.4 D (4.0-11.0) K/uL RBC 3.61 L (4.50-6.50) M/uL Hgb 9.2 L (13.0-18.0) g/dL Hct 29.3 L (40.0-54.0) % MCV 81 (76-96) fL MCH 25.5 L (27.0-32.0) pg MCHC 31.4 (31.0-35.0) g/dL RDW 21.0 H (11.0-16.0) % Plt Count 238 (150-400) K/uL MPV 9.3 (6.0-10.0) fL Neut % (Auto) 86.4 H (45.0-70.0) % Lymph % (Auto) 6.6 L (20.0-40.0) % Pratt % (Auto) 7.0 (3.0-10.0) % Eos % (Auto) 0.0 L (1.0-5.0) % Baso % (Auto) 0.0 (0.0-0.5) % Neut # (Auto) 6.43 (2.00-7.50) K/uL Lymph # (Auto) 0.49 L (1.50-4.00) K/uL Pratt # (Auto) 0.52 (0.20-0.80) K/uL Eos # (Auto) 0.00 L (0.04-0.40) K/uL Baso # (Auto) 0.00 L (0.02-0.10) K/uL Sodium 132 L (136-145) mmol/L Potassium 4.6 (3.5-5.1) mmol/L Chloride 94 L (98-107) mmol/L Carbon Dioxide 24.2 (21.0-32.0) mmol/L Anion Gap 18.4 H (5.0-15.0) mmol/L BUN 14 (8-26) mg/dL Creatinine 0.98 (0.70-1.30) mg/dL Est Cr Clr Drug Dosing 63.79 mL/min Estimated GFR (MDRD) > 60 (>60) MLS/MIN BUN/Creatinine Ratio 14.3 (6-25) Glucose 103 H (74-100) mg/dL Calcium 8.2 L (8.5-10.1) mg/dL Total Bilirubin 0.5 D (0.0-1.0) mg/dL AST 38 H (15-37) U/L ALT 54 (12-78) U/L Alkaline Phosphatase 146 H (46-116) U/L B-Natriuretic Peptide 4435 H (0-450) pg/mL Total Protein 6.8 (6.4-8.2) g/dL Albumin 3.1 L (3.4-5.0) g/dL Globulin 3.7 (2.2-4.2) g/dL Albumin/Globulin Ratio 0.8 (0.8-2.0) Med Orders - Current: Current Medications Albuterol/Ipratropium (Duoneb 3.0-0.5 Mg/3 Ml) 3 ml NEB Q4H PRN PRN Reason: Shortness of Breath Last Admin: 08/07/20 19:16 Dose: 3 ml Documented by: Amlodipine Besylate (Norvasc) 5 mg PO DAILY [facility] Last Admin: 08/08/20 07:35 Dose: 5 mg Documented by: Aspirin (Halfprin) 81 mg PO DAILY [facility] Last Admin: 08/08/20 07:35 Dose: 81 mg Documented by: Atorvastatin Calcium (Lipitor) 40 mg PO QPM [facility] Last Admin: 08/07/20 19:55 Dose: 40 mg Documented by: Azithromycin (Zithromax) 250 mg PO DAILY [facility] Stop: 08/13/20 08:01 Last Admin: 08/08/20 11:01 Dose: 250 mg Documented by: Ferrous Sulfate (Ferrous Sulfate) 325 mg PO BIDMEALS [facility] Last Admin: 08/08/20 07:35 Dose: 325 mg Documented by: Furosemide (Lasix) 40 mg PO DAILY [facility] Last Admin: 08/08/20 07:36 Dose: 40 mg Documented by: Furosemide (Lasix) 20 mg PO DAILY@1400 [facility] Last Admin: 08/07/20 13:50 Dose: 20 mg Documented by: Lisinopril (Prinivil) 10 mg PO DAILY [facility] Last Admin: 08/08/20 07:37 Dose: 10 mg Documented by: Lorazepam (Ativan) 0.5 mg PO TID PRN PRN Reason: Anxiety Melatonin (Melatonin) 6 mg PO BEDTIME PRN PRN Reason: Insomnia Last Admin: 08/07/20 19:56 Dose: 6 mg Documented by: Metoprolol Tartrate (Lopressor) 12.5 mg PO BID [facility] Last Admin: 08/08/20 07:36 Dose: 12.5 mg Documented by: Mometasone Furoate/Formoterol Fumar (Dulera 200-5 Mcg) 2 puff IH BID [facility] Last Admin: 08/08/20 07:34 Dose: 2 puff Documented by: Mupirocin (Bactroban Oint) 0 gm TOP TID [facility] Last Admin: 08/08/20 07:39 Dose: 1 applic Documented by: Non-Formulary Medication (Umeclidinium Brm/Vilanterol Tr [Anoro Ellipta 62.5-25 Mcg]) 1 puff IH DAILY [facility] Omeprazole (Omeprazole) 40 mg PO BIDAC [facility] Last Admin: 08/08/20 06:27 Dose: 40 mg Documented by: Potassium Chloride (Klor-Con M20) 40 meq PO DAILY [facility] Last Admin: 08/08/20 07:35 Dose: 40 meq Documented by: Sodium Chloride (Saline Flush) 10 ml FLUSH ASDIRECTED PRN PRN Reason: Keep Vein Open Sodium Chloride (Saline Flush) 10 ml FLUSH BID [facility] Last Admin: 08/08/20 07:55 Dose: 10 ml Documented by: Tamsulosin HCl (Flomax) 0.4 mg PO DAILY [facility] Last Admin: 08/08/20 07:36 Dose: 0.4 mg Documented by: Tramadol HCl (Ultram) 50 mg PO Q6H PRN PRN Reason: Pain Vitamin A/Vitamin D (Vitamin A & D) 0 gm TOP BEDTIME [facility] Last Admin: 08/07/20 19:59 Dose: 1 gm Documented by: Discontinued Medications Azithromycin (Zithromax) 500 mg PO ONETIME ONE Stop: 08/07/20 09:57 Last Admin: 08/07/20 11:03 Dose: 500 mg Documented by: Furosemide (Lasix) 20 mg PO ONETIME ONE Stop: 08/07/20 10:41 Last Admin: 08/07/20 11:02 Dose: 20 mg Documented by: Ceftriaxone Sodium 1 gm/ (Sodium Chloride) 50 mls @ 100 mls/hr IV ONETIME ONE Stop: 08/07/20 10:25 Last Admin: 08/07/20 11:03 Dose: 100 mls/hr Documented by: Methylprednisolone Sodium Succinate (Solu-Medrol) 80 mg IV ONETIME ONE Stop: 08/07/20 10:01 Last Admin: 08/07/20 11:03 Dose: 80 mg Documented by: Sepsis Event Note - Evaluation Sepsis Screening Result: No Definite Risk - Focused Exam Vital Signs: Vital Signs Temp Pulse Pulse Resp BP BP Pulse Ox 08/08/20 07:41 97.5 F 65 20 121/67 96 08/08/20 07:37 121/67 08/08/20 07:36 65 121/67 08/08/20 07:35 121/67 08/08/20 02:57 96 F L 68 28 H 118/66 95 - Problem List Review Problem List Initiated/Reviewed/Updated: Yes - Plan Plan:: Patient date of visit on 08/07 after discussion with local YASIR Daugherty. Delayed entry into EMR with technical difficulty: Nicolasa Webster Hospitalist CONSULTATION NOTE: HPI: 80-year-old male with CHF as well as early stage colon cancer. Was admitted to swing bed with deconditioning. Has been transitioned to acute bed today as the patient has exhibited signs of acute CHF. He does have an elevated BNP and chest x-ray showing pulmonary vascular congestion. Radiology report does also indicate that there may be a right lower lobe infiltrate. He has not had any leukocytosis or fevers. The patient had increase in his Lasix yesterday and has had improvement and his BNP today and appears to have decrease in his weight also by 1 lbs. He has been started on ceftriaxone and azithromycin due to infiltrate on CXR. Lasix twice daily as well as Solu-Medrol. Per bedside nurse he has been noted to have increase in respiratory rate. Yesterday he was tachypneic in the 40s. Today he is respiratory rate has improved dramatically to the 24-28 range. O2 saturations have been in the 95-97 range. Of significance he recently had a GI bleed therefore has not been on prophylactic anticoagulation. 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 Has a follow-up with oncology in the near future. He was seen seen by the hospitalist on 07/21 at which time he was transferred to [place] for GI bleed. He then returned to swing bed on 07/28. He is now referred to acute hospitalization for CHF and pneumonia Exam (performed via interactive video with assistance of bedside nurse on 08/07): General: alert, cooperative, no acute distress Lungs: decreased throughout, slight crackles in the bases CV: regular rate and rhythm without loud murmur rub or gallop Ext: pitting edema of LUE and RLE described, observed in the arm more than leg Assessment and Plan: 80-year-old man admitted for rehabilitation. Developed extremity mild, pulmonary vascular congestion and x-ray findings concerning for infiltrate. Agree with the plan to transfer him to acute service and manage with ceftriaxone and azithromycin for the possible infiltrate. Is unclear clinical picture as he does not have signs of pneumonia. Given his overall status would favor treating for pneumonia and repeating x-ray in 2 days. We will continue the current Lasix dose as he seems to have improvement of his respiratory status and is diuresing with that change. If failure to improve in the edema and it does not resolve would need to have follow-up ultrasound to evaluate for DVT. In the interim there is contraindication to chemical prophylaxis with his recent bleeding event. He is on SCD and ambulates frequently. OF NOTE: reviewed again but did not examine on 08/08: Patient with increase weight, increase BNP, clinically described as no significant change. Lab reviewed and stable. Recommend 40mg IV Lasix daily starting today. Continue to follow BNP and BMP. US for eval if does not improve. Repeat Xray after diuresis either tomorrow or following day. Thank you for including Nicolasa Webster Hospitalist in the patients care. This service is available for further assistance as requested by your care team by calling [phone].
[2020-08-08] MEDS ORDERED: Furosemide 40 MG/4 ML VIAL ONE (13:17)
[2020-08-08] MEDS: Furosemide 40 MG/4 ML VIAL IVPUSH SCH (13:20)
--- NOTE | 2020-08-08 14:10 | PCM.PN ---
- General Info Date of Service: 08/08/20 - Patient Data Vitals - Most Recent: Last Vital Signs Temp 96.9 F 08/08/20 12:00 Pulse 60 08/08/20 12:00 Resp 28 H 08/08/20 12:00 BP 123/64 08/08/20 12:00 Pulse Ox 95 08/08/20 12:00 Weight - Most Recent: 182 lb 12.8 oz I&O - Last 24 Hours: Intake & Output 08/07/20 08/08/20 08/08/20 22:59 06:59 14:59 Intake Total 2420 600 Balance 2420 600 Lab Results Last 24 Hours: Laboratory Results - last 24 hr 08/08/20 08/08/20 08/08/20 Range/Units 08:15 08:15 08:15 WBC 7.4 D (4.0-11.0) K/uL RBC 3.61 L (4.50-6.50) M/uL Hgb 9.2 L (13.0-18.0) g/dL Hct 29.3 L (40.0-54.0) % MCV 81 (76-96) fL MCH 25.5 L (27.0-32.0) pg MCHC 31.4 (31.0-35.0) g/dL RDW 21.0 H (11.0-16.0) % Plt Count 238 (150-400) K/uL MPV 9.3 (6.0-10.0) fL Neut % (Auto) 86.4 H (45.0-70.0) % Lymph % (Auto) 6.6 L (20.0-40.0) % Gila % (Auto) 7.0 (3.0-10.0) % Eos % (Auto) 0.0 L (1.0-5.0) % Baso % (Auto) 0.0 (0.0-0.5) % Neut # (Auto) 6.43 (2.00-7.50) K/uL Lymph # (Auto) 0.49 L (1.50-4.00) K/uL Gila # (Auto) 0.52 (0.20-0.80) K/uL Eos # (Auto) 0.00 L (0.04-0.40) K/uL Baso # (Auto) 0.00 L (0.02-0.10) K/uL Sodium 132 L (136-145) mmol/L Potassium 4.6 (3.5-5.1) mmol/L Chloride 94 L (98-107) mmol/L Carbon Dioxide 24.2 (21.0-32.0) mmol/L Anion Gap 18.4 H (5.0-15.0) mmol/L BUN 14 (8-26) mg/dL Creatinine 0.98 (0.70-1.30) mg/dL Est Cr Clr Drug Dosing 63.79 mL/min Estimated GFR (MDRD) > 60 (>60) MLS/MIN BUN/Creatinine Ratio 14.3 (6-25) Glucose 103 H (74-100) mg/dL Calcium 8.2 L (8.5-10.1) mg/dL Total Bilirubin 0.5 D (0.0-1.0) mg/dL AST 38 H (15-37) U/L ALT 54 (12-78) U/L Alkaline Phosphatase 146 H (46-116) U/L B-Natriuretic Peptide 4435 H (0-450) pg/mL Total Protein 6.8 (6.4-8.2) g/dL Albumin 3.1 L (3.4-5.0) g/dL Globulin 3.7 (2.2-4.2) g/dL Albumin/Globulin Ratio 0.8 (0.8-2.0) Med Orders - Current: Current Medications Albuterol/Ipratropium (Duoneb 3.0-0.5 Mg/3 Ml) 3 ml NEB Q4H PRN PRN Reason: Shortness of Breath Last Admin: 08/07/20 19:16 Dose: 3 ml Documented by: Amlodipine Besylate (Norvasc) 5 mg PO DAILY [facility] Last Admin: 08/08/20 07:35 Dose: 5 mg Documented by: Aspirin (Halfprin) 81 mg PO DAILY [facility] Last Admin: 08/08/20 07:35 Dose: 81 mg Documented by: Atorvastatin Calcium (Lipitor) 40 mg PO QPM [facility] Last Admin: 08/07/20 19:55 Dose: 40 mg Documented by: Azithromycin (Zithromax) 250 mg PO DAILY [facility] Stop: 08/13/20 08:01 Last Admin: 08/08/20 11:01 Dose: 250 mg Documented by: Ferrous Sulfate (Ferrous Sulfate) 325 mg PO BIDMEALS [facility] Last Admin: 08/08/20 07:35 Dose: 325 mg Documented by: Furosemide (Lasix) 40 mg IVPUSH DAILY [facility] Last Admin: 08/08/20 13:20 Dose: 40 mg Documented by: Lisinopril (Prinivil) 10 mg PO DAILY [facility] Last Admin: 08/08/20 07:37 Dose: 10 mg Documented by: Lorazepam (Ativan) 0.5 mg PO TID PRN PRN Reason: Anxiety Melatonin (Melatonin) 6 mg PO BEDTIME PRN PRN Reason: Insomnia Last Admin: 08/07/20 19:56 Dose: 6 mg Documented by: Metoprolol Tartrate (Lopressor) 12.5 mg PO BID [facility] Last Admin: 08/08/20 07:36 Dose: 12.5 mg Documented by: Mometasone Furoate/Formoterol Fumar (Dulera 200-5 Mcg) 2 puff IH BID [facility] Last Admin: 08/08/20 07:34 Dose: 2 puff Documented by: Mupirocin (Bactroban Oint) 0 gm TOP TID [facility] Last Admin: 08/08/20 13:29 Dose: 1 applic Documented by: Non-Formulary Medication (Umeclidinium Brm/Vilanterol Tr [Anoro Ellipta 62.5-25 Mcg]) 1 puff IH DAILY [facility] Omeprazole (Omeprazole) 40 mg PO BIDAC [facility] Last Admin: 08/08/20 06:27 Dose: 40 mg Documented by: Potassium Chloride (Klor-Con M20) 40 meq PO DAILY [facility] Last Admin: 08/08/20 07:35 Dose: 40 meq Documented by: Sodium Chloride (Saline Flush) 10 ml FLUSH ASDIRECTED PRN PRN Reason: Keep Vein Open Sodium Chloride (Saline Flush) 10 ml FLUSH BID [facility] Last Admin: 08/08/20 07:55 Dose: 10 ml Documented by: Tamsulosin HCl (Flomax) 0.4 mg PO DAILY [facility] Last Admin: 08/08/20 07:36 Dose: 0.4 mg Documented by: Tramadol HCl (Ultram) 50 mg PO Q6H PRN PRN Reason: Pain Vitamin A/Vitamin D (Vitamin A & D) 0 gm TOP BEDTIME [facility] Last Admin: 08/07/20 19:59 Dose: 1 gm Documented by: Discontinued Medications Azithromycin (Zithromax) 500 mg PO ONETIME ONE Stop: 08/07/20 09:57 Last Admin: 08/07/20 11:03 Dose: 500 mg Documented by: Furosemide (Lasix) 40 mg PO DAILY [facility] Last Admin: 08/08/20 07:36 Dose: 40 mg Documented by: Furosemide (Lasix) 20 mg PO DAILY@1400 [facility] Last Admin: 08/07/20 13:50 Dose: 20 mg Documented by: Furosemide (Lasix) 20 mg PO ONETIME ONE Stop: 08/07/20 10:41 Last Admin: 08/07/20 11:02 Dose: 20 mg Documented by: Furosemide (Lasix) Confirm Administered Dose 40 mg .ROUTE .STK-MED ONE Stop: 08/08/20 13:18 Last Admin: 08/08/20 13:29 Dose: Not Given Documented by: Ceftriaxone Sodium 1 gm/ (Sodium Chloride) 50 mls @ 100 mls/hr IV ONETIME ONE Stop: 08/07/20 10:25 Last Admin: 08/07/20 11:03 Dose: 100 mls/hr Documented by: Methylprednisolone Sodium Succinate (Solu-Medrol) 80 mg IV ONETIME ONE Stop: 08/07/20 10:01 Last Admin: 08/07/20 11:03 Dose: 80 mg Documented by: Sepsis Event Note - Evaluation Sepsis Screening Result: No Definite Risk - Focused Exam Vital Signs: Vital Signs Temp Temp Pulse Pulse Resp BP BP 08/08/20 12:00 96.9 F 60 28 H 123/64 08/08/20 07:41 97.5 F 65 20 121/67 08/08/20 07:37 121/67 08/08/20 07:36 65 121/67 08/08/20 07:35 121/67 08/08/20 02:57 96 F L 68 28 H 118/66 Pulse Ox 08/08/20 12:00 95 08/08/20 07:41 96 08/08/20 07:37 08/08/20 07:36 08/08/20 07:35 08/08/20 02:57 95 - Problem List Review Problem List Initiated/Reviewed/Updated: No - Plan Plan:: eHospitalist follow up note: Reviewed meds: adjusted orders to add ceftriaxone IV. If repeat CXR improving can change to PO cefdinir to complete a total of 7 days. Course of azithromycin PO for 5 days so last dose on 08/11 Agree with no further steroids unless develops wheezing
[2020-08-08] MEDS: cefTRIAXone 1 GM in Sodium Chloride 0.9% 50 ML IV SCH (14:36)
[2020-08-08] MEDS: Albuterol/Ipratropium 3.0-0.5 MG/3 ML Neb Soln NEB PRN (19:47)
[2020-08-08] MEDS: atorvaSTATin 40 MG Tab PO SCH (19:49)
[2020-08-08] MEDS: Melatonin 3 MG Tab PO PRN (19:51)
[2020-08-08] MEDS: Vitamins A and D Oint 5 GM UD Packet TOP SCH (22:55)
[2020-08-09] MEDS: Omeprazole 20 MG Cap.CR PO SCH ×2 (06:31→20:06)
[2020-08-09] MEDS: Albuterol/Ipratropium 3.0-0.5 MG/3 ML Neb Soln NEB PRN (07:15)
[2020-08-09] MEDS: Formoterol/Mometasone 200-5 MCG 8.8 GM Inhaler IH SCH ×2 (08:14→20:12)
[2020-08-09] MEDS: Mupirocin Oint 22 GM Tube TOP SCH ×3 (08:14→20:06)
[2020-08-09] MEDS: Lisinopril 10 MG Tab PO SCH (08:15)
[2020-08-09] MEDS: Aspirin 81 MG Tab.EC PO SCH (08:15)
[2020-08-09] MEDS: Metoprolol Tartrate 25 MG Tab PO SCH ×2 (08:16→20:02)
[2020-08-09] MEDS: Potassium Chloride 20 MEQ Tab.ER PO SCH (08:17)
[2020-08-09] MEDS: Ferrous Sulfate 325 MG Tab PO SCH ×2 (08:18→17:06)
[2020-08-09] MEDS: amLODIPine 5 MG Tab PO SCH (08:18)
[2020-08-09] MEDS: Tamsulosin 0.4 MG Cap.ER PO SCH (08:18)
[2020-08-09] MEDS: Sodium Chloride 0.9% 10 ML Syringe FLUSH SCH ×2 (08:19→20:11)
[2020-08-09] MEDS: Azithromycin 250 MG Tab PO SCH (08:19)
[2020-08-09] MEDS: Furosemide 40 MG/4 ML VIAL IVPUSH SCH (08:19)
--- NOTE | 2020-08-09 11:32 | CR ---
Date of Service: 08/09/20 Clinical Data: Pneumonia and CHF. PA AND LATERAL CHEST: Comparison is made to a prior exam dated 08/06/20. The heart remains enlarged, unchanged. The cardiac pacer and pacer wires remain unchanged in position. The pulmonary vascular congestion on the prior exam has improved. The interstitial edema on the prior exam has also improved. The poorly defined infiltrates on both lungs on the prior exam have nearly completely resolved. There are bilateral pleural effusions on today's exam. The left has increased from the prior exam. No other interval changes. [id number] [facility]
--- NOTE | 2020-08-09 13:04 | PCM.PN ---
- General Info Date of Service: 08/09/20 Admission Dx/Problem (Free Text): Admission Diagnosis/Problem Admission Diagnosis/Problem Pneumonia Pneumonia and CHF exacerbation Subjective Update: 08/08: Patient continues to deny any symptoms this morning. He denies any coughing or short of breath. Nursing noticed his left upper extremity with edema. He gained more weight overnight despite the new diet and increased lasix. 08/09: Patient is ambulating well and has had a healthy appetite. He denies any SOB or difficulty breathing, although nursing states he continues to have tachypnea. No hypoxia. - Review of Systems General: Reports: No Symptoms HEENT: Reports: No Symptoms Pulmonary: Reports: No Symptoms Cardiovascular: Reports: No Symptoms Gastrointestinal: Reports: No Symptoms Genitourinary: Reports: No Symptoms Musculoskeletal: Reports: No Symptoms Skin: Reports: No Symptoms Neurological: Reports: No Symptoms Psychiatric: Reports: No Symptoms - Patient Data Vitals - Most Recent: Last Vital Signs Temp 36.1 C 08/09/20 12:00 Pulse 62 08/09/20 12:00 Resp 28 H 08/09/20 12:00 BP 96/51 L 08/09/20 12:00 Pulse Ox 96 08/09/20 12:00 Weight - Most Recent: 83.007 kg I&O - Last 24 Hours: Intake & Output 08/08/20 08/09/20 08/09/20 22:59 06:59 14:59 Intake Total 4910 680 Balance 4910 680 Lab Results Last 24 Hours: Laboratory Results - last 24 hr 08/08/20 08/09/20 08/09/20 Range/Units 17:40 07:30 07:30 Sodium 134 L (136-145) mmol/L Potassium 4.3 (3.5-5.1) mmol/L Chloride 98 (98-107) mmol/L Carbon Dioxide 26.3 (21.0-32.0) mmol/L Anion Gap 14.0 (5.0-15.0) mmol/L BUN 19 D (8-26) mg/dL Creatinine 0.94 (0.70-1.30) mg/dL Est Cr Clr Drug Dosing 66.50 mL/min Estimated GFR (MDRD) > 60 (>60) MLS/MIN BUN/Creatinine Ratio 20.2 (6-25) Glucose 102 H (74-100) mg/dL Calcium 7.8 L (8.5-10.1) mg/dL B-Natriuretic Peptide 2988 H D (0-450) pg/mL SARS CoV-2 RNA Rapid KENDAL Negative Med Orders - Current: Current Medications Albuterol/Ipratropium (Duoneb 3.0-0.5 Mg/3 Ml) 3 ml NEB Q4H PRN PRN Reason: Shortness of Breath Last Admin: 08/09/20 07:15 Dose: 3 ml Documented by: Amlodipine Besylate (Norvasc) 5 mg PO DAILY [facility] Last Admin: 08/09/20 08:18 Dose: 5 mg Documented by: Aspirin (Halfprin) 81 mg PO DAILY [facility] Last Admin: 08/09/20 08:15 Dose: 81 mg Documented by: Atorvastatin Calcium (Lipitor) 40 mg PO QPM [facility] Last Admin: 08/08/20 19:49 Dose: 40 mg Documented by: Azithromycin (Zithromax) 250 mg PO DAILY [facility] Stop: 08/11/20 23:59 Last Admin: 08/09/20 08:19 Dose: 250 mg Documented by: Ferrous Sulfate (Ferrous Sulfate) 325 mg PO BIDMEALS [facility] Last Admin: 08/09/20 08:18 Dose: 325 mg Documented by: Furosemide (Lasix) 40 mg IVPUSH DAILY [facility] Last Admin: 08/09/20 08:19 Dose: 40 mg Documented by: Ceftriaxone Sodium 1 gm/ (Sodium Chloride) 50 mls @ 100 mls/hr IV Q24H [facility] Last Admin: 08/08/20 14:36 Dose: 100 mls/hr Documented by: Lisinopril (Prinivil) 10 mg PO DAILY [facility] Last Admin: 08/09/20 08:15 Dose: 10 mg Documented by: Lorazepam (Ativan) 0.5 mg PO TID PRN PRN Reason: Anxiety Melatonin (Melatonin) 6 mg PO BEDTIME PRN PRN Reason: Insomnia Last Admin: 08/08/20 19:51 Dose: 6 mg Documented by: Metoprolol Tartrate (Lopressor) 12.5 mg PO BID [facility] Last Admin: 08/09/20 08:16 Dose: 12.5 mg Documented by: Mometasone Furoate/Formoterol Fumar (Dulera 200-5 Mcg) 2 puff IH BID [facility] Last Admin: 08/09/20 08:14 Dose: 2 puff Documented by: Mupirocin (Bactroban Oint) 0 gm TOP TID [facility] Last Admin: 08/09/20 08:14 Dose: 1 applic Documented by: Non-Formulary Medication (Umeclidinium Brm/Vilanterol Tr [Anoro Ellipta 62.5-25 Mcg]) 1 puff IH DAILY [facility] Omeprazole (Omeprazole) 40 mg PO BIDAC [facility] Last Admin: 08/09/20 06:31 Dose: 40 mg Documented by: Potassium Chloride (Klor-Con M20) 40 meq PO DAILY [facility] Last Admin: 08/09/20 08:17 Dose: 40 meq Documented by: Sodium Chloride (Saline Flush) 10 ml FLUSH ASDIRECTED PRN PRN Reason: Keep Vein Open Sodium Chloride (Saline Flush) 10 ml FLUSH BID [facility] Last Admin: 08/09/20 08:19 Dose: 10 ml Documented by: Tamsulosin HCl (Flomax) 0.4 mg PO DAILY [facility] Last Admin: 08/09/20 08:18 Dose: 0.4 mg Documented by: Tramadol HCl (Ultram) 50 mg PO Q6H PRN PRN Reason: Pain Vitamin A/Vitamin D (Vitamin A & D) 0 gm TOP BEDTIME [facility] Last Admin: 08/08/20 22:55 Dose: 1 gm Documented by: Discontinued Medications Azithromycin (Zithromax) 500 mg PO ONETIME ONE Stop: 08/07/20 09:57 Last Admin: 08/07/20 11:03 Dose: 500 mg Documented by: Azithromycin (Zithromax) 250 mg PO DAILY [facility] Stop: 08/13/20 08:01 Last Admin: 08/08/20 11:01 Dose: 250 mg Documented by: Furosemide (Lasix) 40 mg PO DAILY [facility] Last Admin: 08/08/20 07:36 Dose: 40 mg Documented by: Furosemide (Lasix) 20 mg PO DAILY@1400 [facility] Last Admin: 08/07/20 13:50 Dose: 20 mg Documented by: Furosemide (Lasix) 20 mg PO ONETIME ONE Stop: 08/07/20 10:41 Last Admin: 08/07/20 11:02 Dose: 20 mg Documented by: Furosemide (Lasix) Confirm Administered Dose 40 mg .ROUTE .STK-MED ONE Stop: 08/08/20 13:18 Last Admin: 08/08/20 13:29 Dose: Not Given Documented by: Ceftriaxone Sodium 1 gm/ (Sodium Chloride) 50 mls @ 100 mls/hr IV ONETIME ONE Stop: 08/07/20 10:25 Last Admin: 08/07/20 11:03 Dose: 100 mls/hr Documented by: Methylprednisolone Sodium Succinate (Solu-Medrol) 80 mg IV ONETIME ONE Stop: 08/07/20 10:01 Last Admin: 08/07/20 11:03 Dose: 80 mg Documented by: - Exam General: Alert, Oriented, Cooperative HEENT: Pupils Equal, Pupils Reactive Neck: Supple, Trachea Midline Lungs: Decreased Breath Sounds, Crackles, Other (RLL crackles; bilateral lower lobes with decreased BS; tachypnea, but patient appears comfortable) GI/Abdominal Exam: Normal Bowel Sounds, Soft, Non-Tender, No Distention Extremities: Normal Inspection, Non-Tender, No Pedal Edema, Normal Capillary Refill, Other (Left upper extremity edema resolved; 2+ pitting edema to bilateral lower extremities) Skin: Warm, Dry, Intact Wound/Incisions: Healing Well, Other (posterior scalp ulcerating lesion healing well; no erythema) Psy/Mental Status: Alert, Normal Affect, Normal Mood Sepsis Event Note - Evaluation Sepsis Screening Result: No Definite Risk - Focused Exam Vital Signs: Vital Signs Temp Pulse Pulse Resp BP BP Pulse Ox 08/09/20 12:00 36.1 C 62 28 H 96/51 L 96 08/09/20 08:18 117/66 08/09/20 08:16 65 117/66 08/09/20 08:15 117/66 08/09/20 07:39 36.1 C 65 32 H 117/66 96 - Problem List Review Problem List Initiated/Reviewed/Updated: Yes - My Orders Last 24 Hours: My Active Orders 08/08/20 12:51 RT Incentive Spirometry [RC] Q2HWA SCD [Sequential Compression Device] [OM.PC] Routine 08/09/20 08:00 Furosemide [Lasix] 40 mg IVPUSH DAILY 08/09/20 09:40 Echo Comp wo Cont [US] Urgent 08/10/20 08:00 BASIC METABOLIC PANEL,BMP [CHEM] DAILY 08/10/20 09:30 VL Duplex Upr Ext Veins Ltd Lt [US] Routine 08/10/20 09:58 B-TYPE NATRIURETIC PEPTIDE,BNP [CHEM] DAILY - Plan Plan:: eHospitalist follow up note: 08/08: Reviewed meds: adjusted orders to add ceftriaxone IV. If repeat CXR improving can change to PO cefdinir to complete a total of 7 days. Course of azithromycin PO for 5 days so last dose on 08/11 Agree with no further steroids unless develops wheezing 08/09: CXR with cardiomegaly, improved pulmonary vascular congestion and improved interstitial edema; infiltrates resolved completely; bilateral pleural effusions with the left side increased. ECHO ordered (last one was done in 2013). Offered patient BIPAP, but he refused at this time. Continue 2 g sodium diet and 2L fluid restriction. Continue lasix 40 mg IV. Azithromycin daily x until 08/11. Switch to PO cefdinir until 08/13. BNP improved to 3000 and patient with 0.6 pound weight loss.
[2020-08-09] MEDS: cefTRIAXone 1 GM in Sodium Chloride 0.9% 50 ML IV SCH (14:03)
[2020-08-09] MEDS: atorvaSTATin 40 MG Tab PO SCH (20:02)
[2020-08-09] MEDS: LORazepam 0.5 MG Tab PO PRN (20:02)
[2020-08-09] MEDS: Vitamins A and D Oint 5 GM UD Packet TOP SCH (20:12)
[2020-08-10] MEDS: Aspirin 81 MG Tab.EC PO SCH (07:53)
[2020-08-10] MEDS: Ferrous Sulfate 325 MG Tab PO SCH ×2 (07:53→18:36)
[2020-08-10] MEDS: Tamsulosin 0.4 MG Cap.ER PO SCH (07:53)
[2020-08-10] MEDS: Potassium Chloride 20 MEQ Tab.ER PO SCH (07:53)
[2020-08-10] MEDS: Azithromycin 250 MG Tab PO SCH (07:53)
[2020-08-10] MEDS: Omeprazole 20 MG Cap.CR PO SCH ×2 (07:53→19:50)
[2020-08-10] MEDS: amLODIPine 5 MG Tab PO SCH (07:54)
[2020-08-10] MEDS: Formoterol/Mometasone 200-5 MCG 8.8 GM Inhaler IH SCH ×2 (07:54→19:56)
[2020-08-10] MEDS: Lisinopril 10 MG Tab PO SCH (07:54)
[2020-08-10] MEDS: Sodium Chloride 0.9% 10 ML Syringe FLUSH SCH ×2 (07:55→19:56)
[2020-08-10] MEDS: Mupirocin Oint 22 GM Tube TOP SCH ×3 (07:55→19:56)
[2020-08-10] MEDS: Furosemide 40 MG/4 ML VIAL IVPUSH SCH (07:55)
[2020-08-10] MEDS: Metoprolol Tartrate 25 MG Tab PO SCH ×2 (07:55→19:49)
--- NOTE | 2020-08-10 11:11 | US ---
DATE OF SERVICE: 08/10/20 CLINICAL DATA: rule out DVT LEFT ARM VENOUS DOPPLER: No evidence of DVT. There is subcutaneous edema noted in the left forearm and wrist region. [id number] [facility]
--- NOTE | 2020-08-10 11:56 | PCM.PN ---
- General Info Date of Service: 08/10/20 Admission Dx/Problem (Free Text): Admission Diagnosis/Problem Admission Diagnosis/Problem Pneumonia Pneumonia and CHF exacerbation Subjective Update: 08/08: Patient continues to deny any symptoms this morning. He denies any coughing or short of breath. Nursing noticed his left upper extremity with edema. He gained more weight overnight despite the new diet and increased lasix. 08/09: Patient is ambulating well and has had a healthy appetite. He denies any SOB or difficulty breathing, although nursing states he continues to have tachypnea. No hypoxia. 08/10: Patient continues to ambulate well and appears more active. He is down almost 3 pounds this morning. BNP remains the same. He states he feels that his breathing is better today. Patient continues to refuse SCDs and BIPAP. Functional Status: Reports: Tolerating Diet, Ambulating, Urinating, Incentive Spirometry - Review of Systems General: Reports: No Symptoms HEENT: Reports: No Symptoms Pulmonary: Reports: Shortness of Breath Cardiovascular: Reports: Edema Gastrointestinal: Reports: No Symptoms Genitourinary: Reports: No Symptoms Musculoskeletal: Reports: No Symptoms Skin: Reports: No Symptoms Neurological: Reports: No Symptoms - Patient Data Vitals - Most Recent: Last Vital Signs Temp 36.4 C 08/10/20 08:00 Pulse 73 08/10/20 08:00 Resp 20 08/10/20 08:00 BP 125/50 L 08/10/20 08:00 Pulse Ox 96 08/10/20 08:00 Weight - Most Recent: 81.42 kg I&O - Last 24 Hours: Intake & Output 08/09/20 08/10/20 08/10/20 22:59 06:59 14:59 Intake Total 3850 260 Balance 3850 260 Lab Results Last 24 Hours: Laboratory Results - last 24 hr 08/10/20 08/10/20 Range/Units 07:10 07:15 Sodium 135 L (136-145) mmol/L Potassium 4.2 (3.5-5.1) mmol/L Chloride 98 (98-107) mmol/L Carbon Dioxide 29.1 (21.0-32.0) mmol/L Anion Gap 12.1 (5.0-15.0) mmol/L BUN 16 (8-26) mg/dL Creatinine 0.84 (0.70-1.30) mg/dL Est Cr Clr Drug Dosing 70.01 mL/min Estimated GFR (MDRD) > 60 (>60) MLS/MIN BUN/Creatinine Ratio 19.0 (6-25) Glucose 84 (74-100) mg/dL Calcium 7.8 L (8.5-10.1) mg/dL B-Natriuretic Peptide 2990 H (0-450) pg/mL Med Orders - Current: Current Medications Albuterol/Ipratropium (Duoneb 3.0-0.5 Mg/3 Ml) 3 ml NEB Q4H PRN PRN Reason: Shortness of Breath Last Admin: 08/09/20 07:15 Dose: 3 ml Documented by: Amlodipine Besylate (Norvasc) 5 mg PO DAILY [facility] Last Admin: 08/10/20 07:54 Dose: 5 mg Documented by: Aspirin (Halfprin) 81 mg PO DAILY [facility] Last Admin: 08/10/20 07:53 Dose: 81 mg Documented by: Atorvastatin Calcium (Lipitor) 40 mg PO QPM [facility] Last Admin: 08/09/20 20:02 Dose: 40 mg Documented by: Azithromycin (Zithromax) 250 mg PO DAILY [facility] Stop: 08/11/20 23:59 Last Admin: 08/10/20 07:53 Dose: 250 mg Documented by: Ferrous Sulfate (Ferrous Sulfate) 325 mg PO BIDMEALS [facility] Last Admin: 08/10/20 07:53 Dose: 325 mg Documented by: Furosemide (Lasix) 40 mg IVPUSH DAILY [facility] Last Admin: 08/10/20 07:55 Dose: 40 mg Documented by: Ceftriaxone Sodium 1 gm/ (Sodium Chloride) 50 mls @ 100 mls/hr IV Q24H [facility] Last Admin: 08/09/20 14:03 Dose: 100 mls/hr Documented by: Lisinopril (Prinivil) 10 mg PO DAILY [facility] Last Admin: 08/10/20 07:54 Dose: 10 mg Documented by: Lorazepam (Ativan) 0.5 mg PO TID PRN PRN Reason: Anxiety Last Admin: 08/09/20 20:02 Dose: 0.5 mg Documented by: Melatonin (Melatonin) 6 mg PO BEDTIME PRN PRN Reason: Insomnia Last Admin: 08/08/20 19:51 Dose: 6 mg Documented by: Metoprolol Tartrate (Lopressor) 12.5 mg PO BID [facility] Last Admin: 08/10/20 07:55 Dose: 12.5 mg Documented by: Mometasone Furoate/Formoterol Fumar (Dulera 200-5 Mcg) 2 puff IH BID [facility] Last Admin: 08/10/20 07:54 Dose: 2 puff Documented by: Mupirocin (Bactroban Oint) 0 gm TOP TID [facility] Last Admin: 08/10/20 07:55 Dose: 1 applic Documented by: Non-Formulary Medication (Umeclidinium Brm/Vilanterol Tr [Anoro Ellipta 62.5-25 Mcg]) 1 puff IH DAILY [facility] Omeprazole (Omeprazole) 40 mg PO BIDAC [facility] Last Admin: 08/10/20 07:53 Dose: 40 mg Documented by: Potassium Chloride (Klor-Con M20) 40 meq PO DAILY [facility] Last Admin: 08/10/20 07:53 Dose: 40 meq Documented by: Sodium Chloride (Saline Flush) 10 ml FLUSH ASDIRECTED PRN PRN Reason: Keep Vein Open Sodium Chloride (Saline Flush) 10 ml FLUSH BID [facility] Last Admin: 08/10/20 07:55 Dose: 10 ml Documented by: Tamsulosin HCl (Flomax) 0.4 mg PO DAILY [facility] Last Admin: 08/10/20 07:53 Dose: 0.4 mg Documented by: Tramadol HCl (Ultram) 50 mg PO Q6H PRN PRN Reason: Pain Vitamin A/Vitamin D (Vitamin A & D) 0 gm TOP BEDTIME [facility] Last Admin: 08/09/20 20:12 Dose: 1 gm Documented by: Discontinued Medications Azithromycin (Zithromax) 500 mg PO ONETIME ONE Stop: 08/07/20 09:57 Last Admin: 08/07/20 11:03 Dose: 500 mg Documented by: Azithromycin (Zithromax) 250 mg PO DAILY [facility] Stop: 08/13/20 08:01 Last Admin: 08/08/20 11:01 Dose: 250 mg Documented by: Furosemide (Lasix) 40 mg PO DAILY [facility] Last Admin: 08/08/20 07:36 Dose: 40 mg Documented by: Furosemide (Lasix) 20 mg PO DAILY@1400 [facility] Last Admin: 08/07/20 13:50 Dose: 20 mg Documented by: Furosemide (Lasix) 20 mg PO ONETIME ONE Stop: 08/07/20 10:41 Last Admin: 08/07/20 11:02 Dose: 20 mg Documented by: Furosemide (Lasix) Confirm Administered Dose 40 mg .ROUTE .STK-MED ONE Stop: 08/08/20 13:18 Last Admin: 08/08/20 13:29 Dose: Not Given Documented by: Ceftriaxone Sodium 1 gm/ (Sodium Chloride) 50 mls @ 100 mls/hr IV ONETIME ONE Stop: 08/07/20 10:25 Last Admin: 08/07/20 11:03 Dose: 100 mls/hr Documented by: Methylprednisolone Sodium Succinate (Solu-Medrol) 80 mg IV ONETIME ONE Stop: 08/07/20 10:01 Last Admin: 08/07/20 11:03 Dose: 80 mg Documented by: - Exam General: Alert, Oriented, Cooperative HEENT: Pupils Equal, Pupils Reactive Lungs: Decreased Breath Sounds, Crackles, Other (decreased BS in LLL; crackles to RLL; tachypnea; slight accessory muscle use with respirations, but appears comfortable; no hypoxia) GI/Abdominal Exam: Normal Bowel Sounds, Soft, Non-Tender, No Distention Extremities: Non-Tender, Normal Capillary Refill, Pedal Edema (bilateral 2+ pitting pedal edema ) Skin: Warm, Dry, Intact Wound/Incisions: Healing Well, Other (posterior scalp ulcerating lesion) Neurological: No New Focal Deficit, Normal Gait Psy/Mental Status: Alert, Normal Affect, Normal Mood Sepsis Event Note - Evaluation Sepsis Screening Result: No Definite Risk - Focused Exam Vital Signs: Vital Signs Temp Pulse Pulse Resp BP BP Pulse Ox 08/10/20 08:00 36.4 C 73 20 125/50 L 96 08/10/20 07:55 73 125/50 L 08/10/20 07:54 125/50 L 08/10/20 04:00 18 08/09/20 23:52 36.4 C 71 18 110/48 L 99 - Problem List Review Problem List Initiated/Reviewed/Updated: Yes - Plan Plan:: eHospitalist follow up note: 08/08: Reviewed meds: adjusted orders to add ceftriaxone IV. If repeat CXR improving can change to PO cefdinir to complete a total of 7 days. Course of azithromycin PO for 5 days so last dose on 08/11 Agree with no further steroids unless develops wheezing 08/09: CXR with cardiomegaly, improved pulmonary vascular congestion and improved interstitial edema; infiltrates resolved completely; bilateral pleural effusions with the left side increased. ECHO ordered (last one was done in 2013). Offered patient BIPAP, but he refused at this time. Continue 2 g sodium diet and 2L fluid restriction. Continue lasix 40 mg IV. Azithromycin daily x until 08/11. Switch to PO cefdinir until 08/13. BNP improved to 3000 and patient with 0.6 pound weight loss. 08/10: BNP about the same, but patient lost about 3 pounds. He refuses SCD and BIPAP. ECHO is completed, pending read. Consulted e-hospitalist to see if lasix should be increased. No Cefdinir in plaxis, will continue rocephin until the . Patient's physical exam is unchanged, other with slight improvement with lung exam. Awaiting e-hospitalist's recommendations. US of upper extremity negative for DVT.
[2020-08-10] MEDS ORDERED: Furosemide 20 MG/2 ML VIAL IVPUSH ONE (12:26)
--- NOTE | 2020-08-10 13:17 | PCM.CONSN ---
- General Info Date of Service: 08/10/20 - Patient Data Vitals - Most Recent: Last Vital Signs Temp 36.4 C 08/10/20 08:00 Pulse 73 08/10/20 08:00 Resp 20 08/10/20 08:00 BP 125/50 L 08/10/20 08:00 Pulse Ox 96 08/10/20 08:00 Weight - Most Recent: 81.42 kg I&O - Last 24 Hours: Intake & Output 08/09/20 08/10/20 08/10/20 22:59 06:59 14:59 Intake Total 3850 260 Balance 3850 260 Lab Results Last 24 Hours: Laboratory Results - last 24 hr 08/10/20 08/10/20 Range/Units 07:10 07:15 Sodium 135 L (136-145) mmol/L Potassium 4.2 (3.5-5.1) mmol/L Chloride 98 (98-107) mmol/L Carbon Dioxide 29.1 (21.0-32.0) mmol/L Anion Gap 12.1 (5.0-15.0) mmol/L BUN 16 (8-26) mg/dL Creatinine 0.84 (0.70-1.30) mg/dL Est Cr Clr Drug Dosing 70.01 mL/min Estimated GFR (MDRD) > 60 (>60) MLS/MIN BUN/Creatinine Ratio 19.0 (6-25) Glucose 84 (74-100) mg/dL Calcium 7.8 L (8.5-10.1) mg/dL B-Natriuretic Peptide 2990 H (0-450) pg/mL Med Orders - Current: Current Medications Albuterol/Ipratropium (Duoneb 3.0-0.5 Mg/3 Ml) 3 ml NEB Q4H PRN PRN Reason: Shortness of Breath Last Admin: 08/09/20 07:15 Dose: 3 ml Documented by: Amlodipine Besylate (Norvasc) 5 mg PO DAILY [facility] Last Admin: 08/10/20 07:54 Dose: 5 mg Documented by: Aspirin (Halfprin) 81 mg PO DAILY [facility] Last Admin: 08/10/20 07:53 Dose: 81 mg Documented by: Atorvastatin Calcium (Lipitor) 40 mg PO QPM [facility] Last Admin: 08/09/20 20:02 Dose: 40 mg Documented by: Azithromycin (Zithromax) 250 mg PO DAILY [facility] Stop: 08/11/20 23:59 Last Admin: 08/10/20 07:53 Dose: 250 mg Documented by: Ferrous Sulfate (Ferrous Sulfate) 325 mg PO BIDMEALS [facility] Last Admin: 08/10/20 07:53 Dose: 325 mg Documented by: Furosemide (Lasix) 40 mg IVPUSH DAILY [facility] Last Admin: 08/10/20 07:55 Dose: 40 mg Documented by: Ceftriaxone Sodium 1 gm/ (Sodium Chloride) 50 mls @ 100 mls/hr IV Q24H [facility] Last Admin: 08/09/20 14:03 Dose: 100 mls/hr Documented by: Lisinopril (Prinivil) 10 mg PO DAILY [facility] Last Admin: 08/10/20 07:54 Dose: 10 mg Documented by: Lorazepam (Ativan) 0.5 mg PO TID PRN PRN Reason: Anxiety Last Admin: 08/09/20 20:02 Dose: 0.5 mg Documented by: Melatonin (Melatonin) 6 mg PO BEDTIME PRN PRN Reason: Insomnia Last Admin: 08/08/20 19:51 Dose: 6 mg Documented by: Metoprolol Tartrate (Lopressor) 12.5 mg PO BID [facility] Last Admin: 08/10/20 07:55 Dose: 12.5 mg Documented by: Mometasone Furoate/Formoterol Fumar (Dulera 200-5 Mcg) 2 puff IH BID [facility] Last Admin: 08/10/20 07:54 Dose: 2 puff Documented by: Mupirocin (Bactroban Oint) 0 gm TOP TID [facility] Last Admin: 08/10/20 07:55 Dose: 1 applic Documented by: Non-Formulary Medication (Umeclidinium Brm/Vilanterol Tr [Anoro Ellipta 62.5-25 Mcg]) 1 puff IH DAILY [facility] Omeprazole (Omeprazole) 40 mg PO BIDAC [facility] Last Admin: 08/10/20 07:53 Dose: 40 mg Documented by: Potassium Chloride (Klor-Con M20) 40 meq PO DAILY [facility] Last Admin: 08/10/20 07:53 Dose: 40 meq Documented by: Sodium Chloride (Saline Flush) 10 ml FLUSH ASDIRECTED PRN PRN Reason: Keep Vein Open Sodium Chloride (Saline Flush) 10 ml FLUSH BID [facility] Last Admin: 08/10/20 07:55 Dose: 10 ml Documented by: Tamsulosin HCl (Flomax) 0.4 mg PO DAILY [facility] Last Admin: 08/10/20 07:53 Dose: 0.4 mg Documented by: Tramadol HCl (Ultram) 50 mg PO Q6H PRN PRN Reason: Pain Vitamin A/Vitamin D (Vitamin A & D) 0 gm TOP BEDTIME [facility] Last Admin: 08/09/20 20:12 Dose: 1 gm Documented by: Discontinued Medications Azithromycin (Zithromax) 500 mg PO ONETIME ONE Stop: 08/07/20 09:57 Last Admin: 08/07/20 11:03 Dose: 500 mg Documented by: Azithromycin (Zithromax) 250 mg PO DAILY [facility] Stop: 08/13/20 08:01 Last Admin: 08/08/20 11:01 Dose: 250 mg Documented by: Furosemide (Lasix) 40 mg PO DAILY [facility] Last Admin: 08/08/20 07:36 Dose: 40 mg Documented by: Furosemide (Lasix) 20 mg PO DAILY@1400 [facility] Last Admin: 08/07/20 13:50 Dose: 20 mg Documented by: Furosemide (Lasix) 20 mg PO ONETIME ONE Stop: 08/07/20 10:41 Last Admin: 08/07/20 11:02 Dose: 20 mg Documented by: Furosemide (Lasix) Confirm Administered Dose 40 mg .ROUTE .STK-MED ONE Stop: 08/08/20 13:18 Last Admin: 08/08/20 13:29 Dose: Not Given Documented by: Furosemide (Lasix) 20 mg IVPUSH ONETIME ONE Stop: 08/10/20 12:27 Ceftriaxone Sodium 1 gm/ (Sodium Chloride) 50 mls @ 100 mls/hr IV ONETIME ONE Stop: 08/07/20 10:25 Last Admin: 08/07/20 11:03 Dose: 100 mls/hr Documented by: Methylprednisolone Sodium Succinate (Solu-Medrol) 80 mg IV ONETIME ONE Stop: 08/07/20 10:01 Last Admin: 08/07/20 11:03 Dose: 80 mg Documented by: Sepsis Event Note - Evaluation Sepsis Screening Result: No Definite Risk - Focused Exam Vital Signs: Vital Signs Temp Pulse Pulse Resp BP BP Pulse Ox 08/10/20 08:00 36.4 C 73 20 125/50 L 96 08/10/20 07:55 73 125/50 L 08/10/20 07:54 125/50 L 08/10/20 04:00 18 Consult PN Assessment/Plan Procedures: Procedures ASSAY OF BLOOD OSMOLALITY (01/20/15) ASSAY OF CK (CPK) (06/15/20) ASSAY OF LACTIC ACID (06/15/20) ASSAY OF MAGNESIUM (06/15/20) ASSAY OF NATRIURETIC PEPTIDE (06/15/20) ASSAY OF TROPONIN QUANT (06/15/20) ASSAY OF URINE OSMOLALITY (01/20/15) CHEST X-RAY 2VW FRONTAL&LATL (01/20/15) COMPLETE CBC W/AUTO DIFF WBC (06/15/20) COMPREHEN METABOLIC PANEL (06/15/20) CT ABD & PELV W/CONTRAST (01/25/15) CT ABD & PELVIS W/O CONTRAST (06/15/20) CT HEAD/BRAIN W/O DYE (06/15/20) CT ORBIT/EAR/FOSSA W/O DYE (07/22/16) CT THORAX W/O DYE (06/15/20) DRAIN/INJ JOINT/BURSA W/O US (09/01/15) ELECTROCARDIOGRAM TRACING (06/15/20) EMERGENCY DEPT VISIT (06/15/20) GAIT TRAINING THERAPY (06/15/20) HEPATIC FUNCTION PANEL (01/20/15) HYDRATE IV INFUSION ADD-ON (01/20/15) INITIAL OBSERVATION CARE (07/22/16) INITIAL OBSERVATION CARE (01/20/15) INSERT BLADDER CATHETER (06/15/20) INSERT TEMP BLADDER CATH (06/15/20) LIPID PANEL (11/08/15) METABOLIC PANEL TOTAL CA (06/15/20) NEEDLE LOCALIZATION BY XRAY (09/01/15) OBSERVATION CARE DISCHARGE (07/22/16) OT EVAL LOW COMPLEX 30 MIN (06/15/20) PROTHROMBIN TIME (06/15/20) PT EVAL LOW COMPLEX 20 MIN (06/15/20) PT EVALUATION (02/17/16) RBC ANTIBODY SCREEN (03/29/16) ROUTINE VENIPUNCTURE (06/15/20) SELF CARE MNGMENT TRAINING (06/15/20) THER/PROPH/DIAG INJ IV PUSH (01/20/15) THER/PROPH/DIAG IV INF ADDON (06/15/20) THER/PROPH/DIAG IV INF INIT (06/15/20) THERAPEUTIC ACTIVITIES (06/15/20) THERAPEUTIC EXERCISES (06/15/20) TISSUE EXAM BY PATHOLOGIST (03/05/15) TTE W/DOPPLER COMPLETE (08/16/16) TX/PRO/DX INJ NEW DRUG ADDON (06/15/20) URINALYSIS AUTO W/SCOPE (06/15/20) URINE CULTURE/COLONY COUNT (06/15/20) US EXAM ABDOM COMPLETE (01/20/15) X-RAY EXAM CHEST 2 VIEWS (06/15/20) X-RAY EXAM HIP UNI 2-3 VIEWS (02/08/16) X-RAY EXAM HIPS BI 2 VIEWS (02/13/17) X-RAY EXAM HIPS BI 3-4 VIEWS (02/28/16) (1) CHF (congestive heart failure) SNOMED Code(s): 87116551 Code(s): I50.9 - HEART FAILURE, UNSPECIFIED Current Visit: No Qualifiers: Heart failure type: unspecified Heart failure chronicity: unspecified Qualified Code(s): I50.9 - Heart failure, unspecified Problem List Initiated/Reviewed/Updated: Yes Plan: E hospitalist collaboration: I have discussed with Provider Willow. 80yro male admit with chf and pneumonia. Discussion around Lasix. At this time patient is clinically improving and weight decreased by 3lbs. Hyponatremia improving, BNP from admit decreased. Patient has been up walking around and is on room air. CO2 on bmp at baseline has been 24-32 in 2020, co2 last 3 days has increased to 29 and renal function stable and potassium stable. Can continue La six, monitor renal function and potassium and co2 for any contraction alkalosis and if ongoing sob and no further decrease in weight consider increasing Lasix to 40mg BID. Also consider bipap, patient has been declining at this point. Echo pending. Please call with questions.
[2020-08-10] MEDS: cefTRIAXone 1 GM in Sodium Chloride 0.9% 50 ML IV SCH (15:01)
[2020-08-10] MEDS: LORazepam 0.5 MG Tab PO PRN (19:50)
[2020-08-10] MEDS: atorvaSTATin 40 MG Tab PO SCH (19:50)
[2020-08-10] MEDS: Vitamins A and D Oint 5 GM UD Packet TOP SCH (19:51)
[2020-08-11] MEDS: Ferrous Sulfate 325 MG Tab PO SCH ×2 (08:21→17:25)
[2020-08-11] MEDS: Omeprazole 20 MG Cap.CR PO SCH ×2 (08:21→20:13)
[2020-08-11] MEDS: Potassium Chloride 20 MEQ Tab.ER PO SCH (08:21)
[2020-08-11] MEDS: Aspirin 81 MG Tab.EC PO SCH (08:21)
[2020-08-11] MEDS: Metoprolol Tartrate 25 MG Tab PO SCH ×2 (08:22→20:14)
[2020-08-11] MEDS: amLODIPine 5 MG Tab PO SCH (08:23)
[2020-08-11] MEDS: Lisinopril 10 MG Tab PO SCH (08:23)
[2020-08-11] MEDS: Tamsulosin 0.4 MG Cap.ER PO SCH (08:23)
[2020-08-11] MEDS: Azithromycin 250 MG Tab PO SCH (08:24)
[2020-08-11] MEDS: Sodium Chloride 0.9% 10 ML Syringe FLUSH SCH ×2 (08:24→20:15)
[2020-08-11] MEDS: Furosemide 40 MG/4 ML VIAL IVPUSH SCH (08:25)
[2020-08-11] MEDS: Mupirocin Oint 22 GM Tube TOP SCH ×3 (08:27→20:14)
[2020-08-11] MEDS: Formoterol/Mometasone 200-5 MCG 8.8 GM Inhaler IH SCH ×2 (08:29→20:14)
--- NOTE | 2020-08-11 14:53 | PN ---
DATE OF VISIT: 08/11/2020 HISTORY OF PRESENT ILLNESS: An 80-year-old male who was transferred from swing bed to observation for a flareup of CHF. The patient has been getting Lasix IV and he has been getting antibiotics. His condition has definitely improved. Nursing staff states that he is doing fine today. He only complains of a little bit of weakness. He has refused the BiPAP machine, stating he did not like it. When arriving into the patient's room, he was sitting up in his chair. He is not complaining of any pain and states that he feels okay. PHYSICAL EXAMINATION: LUNGS: Clear with mild to moderately reduced air exchange throughout the lung sweet. ABDOMEN: Soft, nontender. EXTREMITIES: The patient's ankles are non-swollen. There is no edema here. SKIN: Intact. ASSESSMENT AND PLAN: The patient is still getting IV Lasix. I feel we should monitor him for 1 more day and nursing staff agrees. He should be able to be transitioned to swing bed status tomorrow. We will continue with his current treatment measures. No changes today. CRS/MODL /[id number]
[2020-08-11] MEDS: cefTRIAXone 1 GM in Sodium Chloride 0.9% 50 ML IV SCH (15:22)
[2020-08-11] MEDS: atorvaSTATin 40 MG Tab PO SCH (20:13)
[2020-08-11] MEDS: LORazepam 0.5 MG Tab PO PRN (20:13)
[2020-08-11] MEDS: Vitamins A and D Oint 5 GM UD Packet TOP SCH (20:15)
[2020-08-12] MEDS: Omeprazole 20 MG Cap.CR PO SCH ×2 (08:52→19:57)
[2020-08-12] MEDS: Tamsulosin 0.4 MG Cap.ER PO SCH (08:52)
[2020-08-12] MEDS: Furosemide 40 MG/4 ML VIAL IVPUSH SCH (08:52)
[2020-08-12] MEDS: Aspirin 81 MG Tab.EC PO SCH (08:52)
[2020-08-12] MEDS: Potassium Chloride 20 MEQ Tab.ER PO SCH (08:52)
[2020-08-12] MEDS: Metoprolol Tartrate 25 MG Tab PO SCH ×2 (08:55→19:56)
[2020-08-12] MEDS: Lisinopril 10 MG Tab PO SCH (08:55)
[2020-08-12] MEDS: amLODIPine 5 MG Tab PO SCH (08:55)
[2020-08-12] MEDS: Formoterol/Mometasone 200-5 MCG 8.8 GM Inhaler IH SCH ×2 (08:56→19:58)
[2020-08-12] MEDS: Ferrous Sulfate 325 MG Tab PO SCH ×2 (08:57→17:24)
[2020-08-12] MEDS: Mupirocin Oint 22 GM Tube TOP SCH ×2 (09:00→19:58)
--- NOTE | 2020-08-12 09:14 | PCM.PN ---
- General Info Date of Service: 08/12/20 Admission Dx/Problem (Free Text): Admission Diagnosis/Problem Admission Diagnosis/Problem Pneumonia Pneumonia and CHF exacerbation Subjective Update: 08/08: Patient continues to deny any symptoms this morning. He denies any coughing or short of breath. Nursing noticed his left upper extremity with edema. He gained more weight overnight despite the new diet and increased lasix. 08/09: Patient is ambulating well and has had a healthy appetite. He denies any SOB or difficulty breathing, although nursing states he continues to have tachypnea. No hypoxia. 08/10: Patient continues to ambulate well and appears more active. He is down almost 3 pounds this morning. BNP remains the same. He states he feels that his breathing is better today. Patient continues to refuse SCDs and BIPAP. 08/12: Patient down to 176 lbs from 182 lbs. His lungs sounds are more distinguished with slight crackles to the right lower lobe. +1-2 pitting edema in his bilateral lower legs. He refuses BIPAP, but is wearing the [place] hose daily. Will do lasix 40 mg IV in the morning and lasix 20 mg IV in the afternoon. Discussed with pharmacist about transitioning over to PO diuretic tomorrow and he will give his recommendations later today. Daily BMP and BNP. Daily weights. Anticipate swing bed status Sunday. - Review of Systems General: Reports: No Symptoms HEENT: Reports: No Symptoms Pulmonary: Reports: No Symptoms Cardiovascular: Reports: No Symptoms Gastrointestinal: Reports: No Symptoms Musculoskeletal: Reports: No Symptoms Skin: Reports: No Symptoms Neurological: Reports: No Symptoms Psychiatric: Reports: No Symptoms - Patient Data Vitals - Most Recent: Last Vital Signs Temp 36.6 C 08/12/20 00:00 Pulse 68 08/12/20 00:00 Resp 18 08/12/20 04:00 BP 112/67 08/12/20 00:00 Pulse Ox 98 08/12/20 00:00 Weight - Most Recent: 80.059 kg I&O - Last 24 Hours: Intake & Output 08/11/20 08/12/20 08/12/20 22:59 06:59 14:59 Intake Total 1300 290 Balance 1300 290 Lab Results Last 24 Hours: Laboratory Results - last 24 hr 08/11/20 08/11/20 Range/Units 13:00 13:00 Sodium 137 (136-145) mmol/L Potassium 4.6 (3.5-5.1) mmol/L Chloride 99 (98-107) mmol/L Carbon Dioxide 28.9 (21.0-32.0) mmol/L Anion Gap 13.7 (5.0-15.0) mmol/L BUN 14 (8-26) mg/dL Creatinine 1.00 (0.70-1.30) mg/dL Est Cr Clr Drug Dosing 58.81 mL/min Estimated GFR (MDRD) > 60 (>60) MLS/MIN BUN/Creatinine Ratio 14.0 (6-25) Glucose 140 H D (74-100) mg/dL Calcium 8.1 L (8.5-10.1) mg/dL B-Natriuretic Peptide 4106 H D (0-450) pg/mL Med Orders - Current: Current Medications Albuterol/Ipratropium (Duoneb 3.0-0.5 Mg/3 Ml) 3 ml NEB Q4H PRN PRN Reason: Shortness of Breath Last Admin: 08/09/20 07:15 Dose: 3 ml Documented by: Amlodipine Besylate (Norvasc) 5 mg PO DAILY [facility] Last Admin: 08/11/20 08:23 Dose: 5 mg Documented by: Aspirin (Halfprin) 81 mg PO DAILY [facility] Last Admin: 08/12/20 08:52 Dose: 81 mg Documented by: Atorvastatin Calcium (Lipitor) 40 mg PO QPM [facility] Last Admin: 08/11/20 20:13 Dose: 40 mg Documented by: Ferrous Sulfate (Ferrous Sulfate) 325 mg PO BIDMEALS [facility] Last Admin: 08/11/20 17:25 Dose: 325 mg Documented by: Furosemide (Lasix) 40 mg IVPUSH DAILY [facility] Last Admin: 08/12/20 08:52 Dose: 40 mg Documented by: Furosemide (Lasix) 20 mg IVPUSH DAILY@1400 [facility] Ceftriaxone Sodium 1 gm/ (Sodium Chloride) 50 mls @ 100 mls/hr IV Q24H [facility] Last Admin: 08/11/20 15:22 Dose: 100 mls/hr Documented by: Lisinopril (Prinivil) 10 mg PO DAILY [facility] Last Admin: 08/11/20 08:23 Dose: 10 mg Documented by: Lorazepam (Ativan) 0.5 mg PO TID PRN PRN Reason: Anxiety Last Admin: 08/11/20 20:13 Dose: 0.5 mg Documented by: Melatonin (Melatonin) 6 mg PO BEDTIME PRN PRN Reason: Insomnia Last Admin: 08/08/20 19:51 Dose: 6 mg Documented by: Metoprolol Tartrate (Lopressor) 12.5 mg PO BID [facility] Last Admin: 08/11/20 20:14 Dose: 12.5 mg Documented by: Mometasone Furoate/Formoterol Fumar (Dulera 200-5 Mcg) 2 puff IH BID [facility] Last Admin: 08/11/20 20:14 Dose: 2 puff Documented by: Mupirocin (Bactroban Oint) 0 gm TOP BID [facility] Last Admin: 08/11/20 20:14 Dose: 1 applic Documented by: Non-Formulary Medication (Umeclidinium Brm/Vilanterol Tr [Anoro Ellipta 62.5-25 Mcg]) 1 puff IH DAILY [facility] Omeprazole (Omeprazole) 40 mg PO BIDAC [facility] Last Admin: 08/12/20 08:52 Dose: 40 mg Documented by: Potassium Chloride (Klor-Con M20) 40 meq PO DAILY [facility] Last Admin: 08/12/20 08:52 Dose: 40 meq Documented by: Sodium Chloride (Saline Flush) 10 ml FLUSH ASDIRECTED PRN PRN Reason: Keep Vein Open Sodium Chloride (Saline Flush) 10 ml FLUSH BID [facility] Last Admin: 08/11/20 20:15 Dose: 10 ml Documented by: Tamsulosin HCl (Flomax) 0.4 mg PO DAILY [facility] Last Admin: 08/12/20 08:52 Dose: 0.4 mg Documented by: Tramadol HCl (Ultram) 50 mg PO Q6H PRN PRN Reason: Pain Vitamin A/Vitamin D (Vitamin A & D) 0 gm TOP BEDTIME [facility] Last Admin: 08/11/20 20:15 Dose: 1 gm Documented by: Discontinued Medications Azithromycin (Zithromax) 500 mg PO ONETIME ONE Stop: 08/07/20 09:57 Last Admin: 08/07/20 11:03 Dose: 500 mg Documented by: Azithromycin (Zithromax) 250 mg PO DAILY [facility] Stop: 08/13/20 08:01 Last Admin: 08/08/20 11:01 Dose: 250 mg Documented by: Azithromycin (Zithromax) 250 mg PO DAILY [facility] Stop: 08/11/20 23:59 Last Admin: 08/11/20 08:24 Dose: 250 mg Documented by: Furosemide (Lasix) 40 mg PO DAILY [facility] Last Admin: 08/08/20 07:36 Dose: 40 mg Documented by: Furosemide (Lasix) 20 mg PO DAILY@1400 [facility] Last Admin: 08/07/20 13:50 Dose: 20 mg Documented by: Furosemide (Lasix) 20 mg PO ONETIME ONE Stop: 08/07/20 10:41 Last Admin: 08/07/20 11:02 Dose: 20 mg Documented by: Furosemide (Lasix) Confirm Administered Dose 40 mg .ROUTE .STK-MED ONE Stop: 08/08/20 13:18 Last Admin: 08/08/20 13:29 Dose: Not Given Documented by: Furosemide (Lasix) 20 mg IVPUSH ONETIME ONE Stop: 08/10/20 12:27 Last Admin: 08/10/20 13:15 Dose: 20 mg Documented by: Ceftriaxone Sodium 1 gm/ (Sodium Chloride) 50 mls @ 100 mls/hr IV ONETIME ONE Stop: 08/07/20 10:25 Last Admin: 08/07/20 11:03 Dose: 100 mls/hr Documented by: Methylprednisolone Sodium Succinate (Solu-Medrol) 80 mg IV ONETIME ONE Stop: 08/07/20 10:01 Last Admin: 08/07/20 11:03 Dose: 80 mg Documented by: Mupirocin (Bactroban Oint) 0 gm TOP TID [facility] Last Admin: 08/11/20 15:52 Dose: Not Given Documented by: - Exam General: Alert, Oriented, Cooperative HEENT: Pupils Equal, Pupils Reactive Neck: Supple Lungs: Normal Respiratory Effort, Crackles (RLL - slight crackles) Cardiovascular: Regular Rate, Regular Rhythm, No Murmurs GI/Abdominal Exam: Normal Bowel Sounds, Soft, Non-Tender, No Distention Extremities: Normal Inspection, Normal Range of Motion, Non-Tender, Normal Capillary Refill, Other (+1-2 pitting edema in bilateral lower extremities) Skin: Warm, Dry, Intact Neurological: No New Focal Deficit Psy/Mental Status: Alert, Normal Affect, Normal Mood Sepsis Event Note - Evaluation Sepsis Screening Result: No Definite Risk - Focused Exam Vital Signs: Vital Signs Temp Pulse Resp BP Pulse Ox 08/12/20 04:00 18 08/12/20 00:00 36.6 C 68 18 112/67 98 - Problem List Review Problem List Initiated/Reviewed/Updated: Yes - My Orders Last 24 Hours: My Active Orders 08/11/20 20:00 Mupirocin Oint [Bactroban Oint] 0 gm TOP BID 08/12/20 08:48 B-TYPE NATRIURETIC PEPTIDE,BNP [CHEM] Routine BASIC METABOLIC PANEL,BMP [CHEM] Routine 08/12/20 14:00 Furosemide [Lasix] 20 mg IVPUSH DAILY@1400 - Plan Plan:: eHospitalist follow up note: 08/08: Reviewed meds: adjusted orders to add ceftriaxone IV. If repeat CXR improving can change to PO cefdinir to complete a total of 7 days. Course of azithromycin PO for 5 days so last dose on 08/11 Agree with no further steroids unless develops wheezing 08/09: CXR with cardiomegaly, improved pulmonary vascular congestion and improved interstitial edema; infiltrates resolved completely; bilateral pleural effusions with the left side increased. ECHO ordered (last one was done in 2013). Offered patient BIPAP, but he refused at this time. Continue 2 g sodium diet and 2L fluid restriction. Continue lasix 40 mg IV. Azithromycin daily x until 08/11. Switch to PO cefdinir until 08/13. BNP improved to 3000 and patient with 0.6 pound weight loss. 08/10: BNP about the same, but patient lost about 3 pounds. He refuses SCD and BIPAP. ECHO is completed, pending read. Consulted e-hospitalist to see if lasix should be increased. No Cefdinir in plaxis, will continue rocephin until the . Patient's physical exam is unchanged, other with slight improvement with lung exam. Awaiting e-hospitalist's recommendations. US of upper extremity negative for DVT. 08/12: Patient down to 176 lbs. He appears to be breathing easier and isn't tachypnic. lung exam significantly improved. Will transition over to PO diuretic tomorrow and awaiting pharmacist recommendation. Continue daily weights, BNP, and BMP.
[2020-08-12] MEDS: Sodium Chloride 0.9% 10 ML Syringe FLUSH SCH ×2 (09:20→19:59)
[2020-08-12] MEDS ORDERED: Furosemide 20 MG/2 ML VIAL IVPUSH SCH (14:00)
[2020-08-12] MEDS: cefTRIAXone 1 GM in Sodium Chloride 0.9% 50 ML IV SCH (14:43)
[2020-08-12] MEDS: atorvaSTATin 40 MG Tab PO SCH (19:56)
[2020-08-12] MEDS: Vitamins A and D Oint 5 GM UD Packet TOP SCH (19:59)
[2020-08-13] MEDS: Omeprazole 20 MG Cap.CR PO SCH (06:47)
[2020-08-13] MEDS: Albuterol/Ipratropium 3.0-0.5 MG/3 ML Neb Soln NEB PRN (07:46)
[2020-08-13] MEDS: Formoterol/Mometasone 200-5 MCG 8.8 GM Inhaler IH SCH (07:46)
[2020-08-13] MEDS: Mupirocin Oint 22 GM Tube TOP SCH (07:48)
[2020-08-13] MEDS: Ferrous Sulfate 325 MG Tab PO SCH (07:49)
[2020-08-13] MEDS: Lisinopril 10 MG Tab PO SCH (07:49)
[2020-08-13] MEDS: Aspirin 81 MG Tab.EC PO SCH (07:49)
[2020-08-13] MEDS: Metoprolol Tartrate 25 MG Tab PO SCH (07:49)
[2020-08-13] MEDS: Tamsulosin 0.4 MG Cap.ER PO SCH (07:49)
[2020-08-13] MEDS: amLODIPine 5 MG Tab PO SCH (07:50)
[2020-08-13] MEDS: Potassium Chloride 20 MEQ Tab.ER PO SCH (07:50)
[2020-08-13 07:57] VITALS: BP 115/70; PULSE 80
[2020-08-13] MEDS: Sodium Chloride 0.9% 10 ML Syringe FLUSH SCH (07:57)
[2020-08-13] MEDS ORDERED: Azithromycin 250 MG Tab PO ONE (10:24)
[2020-08-13] MEDS ORDERED: Levofloxacin 750 MG Tab PO SCH (10:30)
--- NOTE | 2020-08-13 11:40 | PCM.DCSUM1 ---
Discharge Summary - Hospital Course Free Text/Narrative:: 10/08: Patient continues to deny any symptoms this morning. He denies any coughing or short of breath. Nursing noticed his left upper extremity with edema. He gained more weight overnight despite the new diet and increased lasix. 08/09: Patient is ambulating well and has had a healthy appetite. He denies any SOB or difficulty breathing, although nursing states he continues to have tachypnea. No hypoxia. 08/10: Patient continues to ambulate well and appears more active. He is down almost 3 pounds this morning. BNP remains the same. He states he feels that his breathing is better today. Patient continues to refuse SCDs and BIPAP. 08/12: Patient down to 176 lbs from 182 lbs. His lungs sounds are more distinguished with slight crackles to the right lower lobe. +1-2 pitting edema in his bilateral lower legs. He refuses BIPAP, but is wearing the [place] hose daily. Will do lasix 40 mg IV in the morning and lasix 20 mg IV in the afternoon. Discussed with pharmacist about transitioning over to PO diuretic tomorrow and he will give his recommendations later today. Daily BMP and BNP. Daily weights. Anticipate swing bed status Sunday. HPI Initial Comments: pt is 79yo man who was admitted to [facility] on Jul for 9lb weight gain and respiratory distress. he was covid negative and found to have exacerbation of heart failure and in fluid overload with significantly elevated BNP. pt's ED course had included education on fluid restrictive and low sodium diet, IV diuretics, IV antibiotics for PNA coverage as this was a concern on CXR earlier in pts course. pt states his symptoms have overall improved greatly, he denies pain, cough, fever, shortness of breath with moderate ADL activity. pt noted on having several admissions to tertiary medical centers for CHF exacerbation and GI bleeds since may of 2020 and had not been receiving medical care on regular basis prior to this. Diagnosis: Stroke: No - Discharge Data Discharge Date: 08/13/20 Discharge Disposition: DC/Tfer W/I Hosp To [facility] Condition: Fair - Referral to Home Health Primary Care Physician: Chuck Shah MD - Discharge Diagnosis/Problem(s) (1) Pneumonia SNOMED Code(s): 230793433 ICD Code: J18.9 - PNEUMONIA, UNSPECIFIED ORGANISM Status: Acute Current Visit: Yes Qualifiers: Pneumonia type: due to unspecified organism Laterality: unspecified laterality Lung location: unspecified part of lung Qualified Code(s): J18.9 - Pneumonia, unspecified organism (2) CHF (congestive heart failure) SNOMED Code(s): 79247840 ICD Code: I50.9 - HEART FAILURE, UNSPECIFIED Status: Acute Current Visit: Yes Qualifiers: Heart failure type: unspecified Heart failure chronicity: unspecified Qualified Code(s): I50.9 - Heart failure, unspecified - Patient Instructions Diet: Heart Healthy Diet, Low Sodium, Fluid Restriction Fluid Restriction: 1500 mL - Discharge Plan *PRESCRIPTION DRUG MONITORING PROGRAM REVIEWED*: Not Applicable *COPY OF PRESCRIPTION DRUG MONITORING REPORT IN PATIENT TEZ: Not Applicable Home Medications: Home Meds Aspirin [Halfprin] 81 mg PO DAILY 01/18/15 [History] Lisinopril 1 tab PO DAILY 01/18/15 [History] amLODIPine [Norvasc] 1 tab PO DAILY 01/31/16 [History] atorvaSTATin Calcium [Atorvastatin Calcium] 40 mg PO QPM 01/31/16 [History] Mometasone/Formoterol [Dulera 200 Mcg/5 Mcg Inhaler] 2 puff IH BID 06/21/20 [History] traMADol [Ultram] 1 tab PO Q6H PRN 06/21/20 [History] Albuterol/Ipratropium [DuoNeb 3.0-0.5 MG/3 ML] 1 ampule NEB Q4H PRN 07/28/20 [History] Ferrous Sulfate 1 tab PO BIDMEALS 07/28/20 [History] Furosemide 1 tab PO BID 07/28/20 [History] LORazepam [Ativan] 1 tab PO TID PRN 07/28/20 [History] Melatonin 2 tab PO BEDTIME PRN 07/28/20 [History] Metoprolol Tartrate 0.5 tab PO BID 07/28/20 [History] Omeprazole 40 mg PO BIDAC 07/28/20 [History] Tamsulosin [Tamsulosin 24 Hr] 1 cap PO DAILY 07/28/20 [History] Umeclidinium Brm/Vilanterol Tr [Anoro Ellipta 62.5-25 MCG] 1 puff IH DAILY 07/28/20 [History] Mupirocin Oint [Bactroban Oint] 1 applic TOP TID 08/07/20 [History] Vitamins A and D [Vitamin A & D] 1 applic TOP BEDTIME 08/07/20 [History] Oxygen Therapy Mode: Room Air - Discharge Summary/Plan Comment DC Time >30 min.: Yes Discharge Summary/Plan Comment: [facility] complex care planning as pt is high risk for readmission and exacerbation of current medical problems. potential adm it to NH vs assisted living SNF. pt is agreeable to this plan of care. will continue PO abx course for x5 days PO lasix adjustment and monitoring. continue daily weights - General Info Date of Service: 08/13/20 Admission Dx/Problem (Free Text: acute on chronic CHF PNA Subjective Update: 08/08: Patient continues to deny any symptoms this morning. He denies any coughing or short of breath. Nursing noticed his left upper extremity with edema. He gained more weight overnight despite the new diet and increased lasix. 08/09: Patient is ambulating well and has had a healthy appetite. He denies any SOB or difficulty breathing, although nursing states he continues to have tachypnea. No hypoxia. 08/10: Patient continues to ambulate well and appears more active. He is down almost 3 pounds this morning. BNP remains the same. He states he feels that his breathing is better today. Patient continues to refuse SCDs and BIPAP. 08/12: Patient down to 176 lbs from 182 lbs. His lungs sounds are more distinguished with slight crackles to the right lower lobe. +1-2 pitting edema in his bilateral lower legs. He refuses BIPAP, but is wearing the [place] hose daily. Will do lasix 40 mg IV in the morning and lasix 20 mg IV in the afternoon. Discussed with pharmacist about transitioning over to PO diuretic tomorrow and he will give his recommendations later today. Daily BMP and BNP. Daily weights. Anticipate swing bed status Sunday. Functional Status: Reports: Pain Controlled, Tolerating Diet, Ambulating, Urinating - Review of Systems General: Reports: No Symptoms Pulmonary: Reports: No Symptoms Cardiovascular: Reports: No Symptoms Skin: Reports: No Symptoms Neurological: Reports: No Symptoms - Patient Data Vitals - Most Recent: Last Vital Signs Temp 96.2 F L 08/13/20 08:00 Pulse 80 08/13/20 08:00 Resp 20 08/13/20 08:00 BP 115/70 08/13/20 08:00 Pulse Ox 92 L 08/13/20 00:00 Weight - Most Recent: 177 lb 2 oz I&O - Last 24 hours: Intake & Output 08/12/20 08/13/20 08/13/20 22:59 06:59 14:59 Intake Total 3010 60 Balance 3010 60 Lab Results - Last 24 hrs: Laboratory Results - last 24 hr 08/13/20 Range/Units 05:30 Sodium 138 (136-145) mmol/L Potassium 4.3 (3.5-5.1) mmol/L Chloride 103 (98-107) mmol/L Carbon Dioxide 27.4 (21.0-32.0) mmol/L Anion Gap 11.9 (5.0-15.0) mmol/L BUN 15 (8-26) mg/dL Creatinine 0.93 (0.70-1.30) mg/dL Est Cr Clr Drug Dosing 63.23 mL/min Estimated GFR (MDRD) > 60 (>60) MLS/MIN BUN/Creatinine Ratio 16.1 (6-25) Glucose 92 (74-100) mg/dL Calcium 7.6 L (8.5-10.1) mg/dL B-Natriuretic Peptide 2667 H (0-450) pg/mL Med Orders - Current: Current Medications Albuterol/Ipratropium (Duoneb 3.0-0.5 Mg/3 Ml) 3 ml NEB Q4H PRN PRN Reason: Shortness of Breath Last Admin: 08/13/20 07:46 Dose: 3 ml Documented by: Amlodipine Besylate (Norvasc) 5 mg PO DAILY [facility] Last Admin: 08/13/20 07:50 Dose: 5 mg Documented by: Aspirin (Halfprin) 81 mg PO DAILY [facility] Last Admin: 08/13/20 07:49 Dose: 81 mg Documented by: Atorvastatin Calcium (Lipitor) 40 mg PO QPM [facility] Last Admin: 08/12/20 19:56 Dose: 40 mg Documented by: Ferrous Sulfate (Ferrous Sulfate) 325 mg PO BIDMEALS [facility] Last Admin: 08/13/20 07:49 Dose: 325 mg Documented by: Furosemide (Lasix) 40 mg PO BID [facility] Levofloxacin (Levaquin) 750 mg PO Q24H [facility] Stop: 08/17/20 10:31 Lisinopril (Prinivil) 10 mg PO DAILY [facility] Last Admin: 08/13/20 07:49 Dose: 10 mg Documented by: Lorazepam (Ativan) 0.5 mg PO TID PRN PRN Reason: Anxiety Last Admin: 08/11/20 20:13 Dose: 0.5 mg Documented by: Melatonin (Melatonin) 6 mg PO BEDTIME PRN PRN Reason: Insomnia Last Admin: 08/08/20 19:51 Dose: 6 mg Documented by: Metoprolol Tartrate (Lopressor) 12.5 mg PO BID [facility] Last Admin: 08/13/20 07:49 Dose: 12.5 mg Documented by: Mometasone Furoate/Formoterol Fumar (Dulera 200-5 Mcg) 2 puff IH BID [facility] Last Admin: 08/13/20 07:46 Dose: 2 puff Documented by: Mupirocin (Bactroban Oint) 0 gm TOP BID [facility] Last Admin: 08/13/20 07:48 Dose: 1 applic Documented by: Non-Formulary Medication (Umeclidinium Brm/Vilanterol Tr [Anoro Ellipta 62.5-25 Mcg]) 1 puff IH DAILY [facility] Omeprazole (Omeprazole) 40 mg PO BIDAC [facility] Last Admin: 08/13/20 06:47 Dose: 40 mg Documented by: Potassium Chloride (Klor-Con M20) 40 meq PO DAILY [facility] Last Admin: 08/13/20 07:50 Dose: 40 meq Documented by: Sodium Chloride (Saline Flush) 10 ml FLUSH ASDIRECTED PRN PRN Reason: Keep Vein Open Sodium Chloride (Saline Flush) 10 ml FLUSH BID [facility] Last Admin: 08/13/20 07:57 Dose: 10 ml Documented by: Tamsulosin HCl (Flomax) 0.4 mg PO DAILY [facility] Last Admin: 08/13/20 07:49 Dose: 0.4 mg Documented by: Tramadol HCl (Ultram) 50 mg PO Q6H PRN PRN Reason: Pain Vitamin A/Vitamin D (Vitamin A & D) 0 gm TOP BEDTIME [facility] Last Admin: 08/12/20 19:59 Dose: 1 gm Documented by: Discontinued Medications Azithromycin (Zithromax) 500 mg PO ONETIME ONE Stop: 08/07/20 09:57 Last Admin: 08/07/20 11:03 Dose: 500 mg Documented by: Azithromycin (Zithromax) 250 mg PO DAILY [facility] Stop: 08/13/20 08:01 Last Admin: 08/08/20 11:01 Dose: 250 mg Documented by: Azithromycin (Zithromax) 250 mg PO DAILY [facility] Stop: 08/11/20 23:59 Last Admin: 08/11/20 08:24 Dose: 250 mg Documented by: Azithromycin (Zithromax) 250 mg PO ONETIME ONE Stop: 08/13/20 10:25 Furosemide (Lasix) 40 mg PO DAILY [facility] Last Admin: 08/08/20 07:36 Dose: 40 mg Documented by: Furosemide (Lasix) 20 mg PO DAILY@1400 [facility] Last Admin: 08/07/20 13:50 Dose: 20 mg Documented by: Furosemide (Lasix) 20 mg PO ONETIME ONE Stop: 08/07/20 10:41 Last Admin: 08/07/20 11:02 Dose: 20 mg Documented by: Furosemide (Lasix) 40 mg IVPUSH DAILY [facility] Last Admin: 08/12/20 08:52 Dose: 40 mg Documented by: Furosemide (Lasix) Confirm Administered Dose 40 mg .ROUTE .STK-MED ONE Stop: 08/08/20 13:18 Last Admin: 08/08/20 13:29 Dose: Not Given Documented by: Furosemide (Lasix) 20 mg IVPUSH ONETIME ONE Stop: 08/10/20 12:27 Last Admin: 08/10/20 13:15 Dose: 20 mg Documented by: Furosemide (Lasix) 20 mg IVPUSH DAILY@1400 [facility] Last Admin: 08/12/20 14:28 Dose: Not Given Documented by: Furosemide (Lasix) 40 mg PO BID [facility] Ceftriaxone Sodium 1 gm/ (Sodium Chloride) 50 mls @ 100 mls/hr IV ONETIME ONE Stop: 08/07/20 10:25 Last Admin: 08/07/20 11:03 Dose: 100 mls/hr Documented by: Ceftriaxone Sodium 1 gm/ (Sodium Chloride) 50 mls @ 100 mls/hr IV Q24H [facility] Last Admin: 08/12/20 14:43 Dose: 100 mls/hr Documented by: Methylprednisolone Sodium Succinate (Solu-Medrol) 80 mg IV ONETIME ONE Stop: 08/07/20 10:01 Last Admin: 08/07/20 11:03 Dose: 80 mg Documented by: Mupirocin (Bactroban Oint) 0 gm TOP TID [facility] Last Admin: 08/11/20 15:52 Dose: Not Given Documented by: - Exam General: Reports: Alert, Oriented, Cooperative, No Acute Distress HEENT: Reports: Pupils Equal, Pupils Reactive, EOMI Lungs: Reports: Rales (bilaterally to lower lobes) Cardiovascular: Reports: Regular Rate, Regular Rhythm Extremities: Pedal Edema (bilateral +1-2) Skin: Reports: Warm, Dry Neurological: Reports: No New Focal Deficit, Normal Gait, Normal Speech
[2020-08-13] MEDS ORDERED: Furosemide 20 MG Tab ONE (12:12)
[2020-08-13] MEDS: Furosemide 40 MG/4 ML VIAL IVPUSH SCH (12:20)
[2020-08-13] MEDS ORDERED: Furosemide 20 MG Tab PO SCH ×2 (14:00→20:00)
== END 2020-08-13 14:15 | disposition swing bed (61) | DRG 291 ==
LOC: LB.MS 09:51
PROVIDERS: ADMIT Physician Assistant; ATTEND Physician Assistant
DX: I11.0 Hypertensive heart disease with heart failure (principal); J18.9 Pneumonia, unspecified organism; J96.11 Chronic respiratory failure with hypoxia; I50.9 Heart failure, unspecified; H91.90 Unspecified hearing loss, unspecified ear; H54.7 Unspecified visual loss; I48.91 Unspecified atrial fibrillation; I25.10 Atherosclerotic heart disease of native coronary artery without angina pectoris; E78.00 Pure hypercholesterolemia, unspecified; J44.9 Chronic obstructive pulmonary disease, unspecified; K21.9 Gastro-esophageal reflux disease without esophagitis; N40.0 Benign prostatic hyperplasia without lower urinary tract symptoms; Z96.649 Presence of unspecified artificial hip joint; M19.90 Unspecified osteoarthritis, unspecified site; F41.9 Anxiety disorder, unspecified; Z20.828 Contact with and (suspected) exposure to other viral communicable diseases; E87.6 Hypokalemia; E83.42 Hypomagnesemia; Z79.01 Long term (current) use of anticoagulants; Z85.828 Personal history of other malignant neoplasm of skin; Z86.010 Personal history of colon polyps; Z86.73 Personal history of transient ischemic attack (TIA), and cerebral infarction without residual deficits; Z79.82 Long term (current) use of aspirin; Z79.899 Other long term (current) drug therapy; Z95.0 Presence of cardiac pacemaker
CPT/HCPCS: 36415; 71046; 80048; 80053; 83880; 85025; 93005; 93306; 93971-LT; 99222; 99231; 99232; 99238; A9270-GY; J0696; J1940; J2930; J7050; J7620-GY; U0002

== ENCOUNTER 2020-08-13 02:14 | Inpatient (IN) | payer MEDICARE ==
[2020-08-13] MEDS: Furosemide 40 MG Tab PO SCH (14:00)
--- NOTE | 2020-08-13 15:39 | PCM.HP.2 ---
H&P History of Present Illness - General Date of Service: 08/13/20 Source of Information: Patient History Limitations: Reports: No Limitations - History of Present Illness Initial Comments - Free Text/Narative: pt admit to swingbed status after prolonged admission from CHF exacerbation with coinciding PNA. due to pt readmission to several hospitals over the last two months and overall worsening health, pt is considered complicated and would benefit from establishing residence at a fci or other SNF. Until then, pt is at high risk for readmission due to exacerbation of CHF or other health problem. pt denies pain, SOB, cough, Fever, chills. - Related Data Allergies/Adverse Reactions: Allergies Allergy/AdvReac Type Severity Reaction Status Date / Time No Known Allergies Allergy Verified 07/28/20 16:46 Home Medications: Home Meds Aspirin [Halfprin] 81 mg PO DAILY 01/18/15 [History] Lisinopril 1 tab PO DAILY 01/18/15 [History] amLODIPine [Norvasc] 1 tab PO DAILY 01/31/16 [History] atorvaSTATin Calcium [Atorvastatin Calcium] 40 mg PO QPM 01/31/16 [History] Mometasone/Formoterol [Dulera 200 Mcg/5 Mcg Inhaler] 2 puff IH BID 06/21/20 [History] traMADol [Ultram] 1 tab PO Q6H PRN 06/21/20 [History] Albuterol/Ipratropium [DuoNeb 3.0-0.5 MG/3 ML] 1 ampule NEB Q4H PRN 07/28/20 [History] Ferrous Sulfate 1 tab PO BIDMEALS 07/28/20 [History] Furosemide 1 tab PO BID 07/28/20 [History] LORazepam [Ativan] 1 tab PO TID PRN 07/28/20 [History] Melatonin 2 tab PO BEDTIME PRN 07/28/20 [History] Metoprolol Tartrate 0.5 tab PO BID 07/28/20 [History] Omeprazole 40 mg PO BIDAC 07/28/20 [History] Tamsulosin [Tamsulosin 24 Hr] 1 cap PO DAILY 07/28/20 [History] Umeclidinium Brm/Vilanterol Tr [Anoro Ellipta 62.5-25 MCG] 1 puff IH DAILY 07/28/20 [History] Mupirocin Oint [Bactroban Oint] 1 applic TOP TID 08/07/20 [History] Vitamins A and D [Vitamin A & D] 1 applic TOP BEDTIME 08/07/20 [History] Past Medical History HEENT History: Reports: Hard of Hearing, Impaired Vision Cardiovascular History: Reports: Afib, CAD, Heart Failure, High Cholesterol, Hypertension, Pacemaker, SOB on Exertion Respiratory History: Reports: Bronchitis, Recurrent, COPD, SOB, Other (See Below) Other Respiratory History: chronic respiratory failure with hypoxia Gastrointestinal History: Reports: Colon Polyp, GERD, GI Bleed Genitourinary History: Reports: BPH Musculoskeletal History: Reports: Osteoarthritis Neurological History: Reports: CVA Psychiatric History: Reports: Anxiety Endocrine/Metabolic History: Reports: Hypokalemia, Hypomagnesemia Hematologic History: Reports: Anticoagulation Therapy Oncologic (Cancer) History: Reports: Basal Cell Carcinoma, Other (See Below) Other Oncologic History: hx of skin CA Dermatologic History: Reports: Melanoma, Other (See Below) Other Dermatologic History: hx of skin ca with CA removed from back lip nose and head - Infectious Disease History Infectious Disease History: Reports: Measles, Mumps Other Infectious Disease History: patient is unsure but states he might have had the measels and mumps and was the only one in his family that didn't get chicken pox - Past Surgical History Head Surgeries/Procedures: Reports: None Cardiovascular Surgical History: Reports: Pacer, Other (See Below) GI Surgical History: Reports: Colonoscopy, Polypectomy Neurological Surgical History: Reports: None Musculoskeletal Surgical History: Reports: Hip Replacement Dermatological Surgical History: Reports: Skin Biopsy Social & Family History - Family History Family Medical History: No Pertinent Family History Cardiac: Reports: CAD, Pacemaker Respiratory: Reports: COPD GI: Reports: None : Reports: None Neurological: Reports: None Psychiatric: Reports: None Endocrine/Metabolic: Reports: None Hematologic: Reports: None Immunologic: Reports: None Oncologic: Reports: Skin - Caffeine Use Caffeine Use: Reports: Coffee, Soda - Living Situation & Occupation Living situation: Reports: Single Occupation: Retired H&P Review of Systems - Review of Systems: Review Of Systems: Comprehensive ROS is negative, except as noted in HPI. Exam - Exam Exam: See Below - Vital Signs Weight: 177 lb 3.2 oz - Exam General: Alert, Oriented, Cooperative HEENT: PERRLA, EOMI Lungs: Rales Cardiovascular: Regular Rate, Regular Rhythm, Normal S1, Normal S2 Extremities: Pedal Edema Skin: Warm, Dry, Intact Neuro Extensive - Mental Status: Alert, Oriented x3, Normal Mood/Affect Neuro Extensive - Motor, Sensory, Reflexes: Normal Gait Psychiatric: Alert, Normal Affect - Problem List (1) CHF (congestive heart failure) SNOMED Code(s): 20385055 ICD Code: I50.9 - HEART FAILURE, UNSPECIFIED Status: Acute Current Visit: No Qualifiers: Heart failure type: unspecified Heart failure chronicity: unspecified Qualified Code(s): I50.9 - Heart failure, unspecified (2) Weakness SNOMED Code(s): 61170281 ICD Code: R53.1 - WEAKNESS Status: Acute Priority: High Current Visit: No Problem Details: Possible CVA like symptoms but Ct head negative and MRI unable to be done due to pacemaker Problem List Initiated/Reviewed/Updated: Yes Orders Last 24hrs: daily weights activity as tolerated fluid restrictions low NA diet. due to complex care planning, will admit swing bed until SNF availability. - Mortality Measure Prognosis:: Good
[2020-08-13] MEDS ORDERED: Sodium Chloride 0.9% 10 ML Syringe FLUSH PRN ×2 (15:52)
[2020-08-13] MEDS ORDERED: traMADol 50 MG Tab PO PRN (15:52)
[2020-08-13] MEDS ORDERED: LORazepam 0.5 MG Tab PO PRN (15:52)
[2020-08-13] MEDS ORDERED: Albuterol/Ipratropium 3.0-0.5 MG/3 ML Neb Soln NEB PRN ×2 (15:52→17:59)
[2020-08-13] MEDS: Ferrous Sulfate 325 MG Tab PO SCH (16:43)
[2020-08-13] MEDS: Omeprazole 20 MG Cap.CR PO SCH (19:43)
[2020-08-13] MEDS: Formoterol/Mometasone 200-5 MCG 8.8 GM Inhaler IH SCH (19:43)
[2020-08-13] MEDS: atorvaSTATin 40 MG Tab PO SCH (19:44)
[2020-08-13] MEDS: Metoprolol Tartrate 25 MG Tab PO SCH (19:45)
[2020-08-13] MEDS: Sodium Chloride 0.9% 10 ML Syringe FLUSH SCH (19:46)
[2020-08-13] MEDS ORDERED: atorvaSTATin 20 MG Tab PO SCH (20:00)
[2020-08-14] MEDS ORDERED: Furosemide 20 MG Tab PO SCH (08:00)
[2020-08-14] MEDS ORDERED: Non-Formulary Medication 1 Each (Umeclidinium Brm/Vilanterol Tr [Anoro Ellipta 62.5-25 Mcg IH SCH (08:00)
[2020-08-14] MEDS ORDERED: Ferrous Sulfate 325 MG Tab PO SCH (08:00)
[2020-08-14] MEDS ORDERED: amLODIPine 5 MG Tab PO SCH (08:00)
[2020-08-14] MEDS ORDERED: Aspirin 81 MG Tab.EC PO SCH (08:00)
[2020-08-14] MEDS: Metoprolol Tartrate 25 MG Tab PO SCH ×2 (08:03→20:07)
[2020-08-14] MEDS: Potassium Chloride 20 MEQ Tab.ER PO SCH (08:04)
[2020-08-14] MEDS: Lisinopril 10 MG Tab PO SCH (08:05)
[2020-08-14] MEDS: Tamsulosin 0.4 MG Cap.ER PO SCH (08:05)
[2020-08-14] MEDS: amLODIPine 5 MG Tab PO SCH (08:05)
[2020-08-14] MEDS: Ferrous Sulfate 325 MG Tab PO SCH ×2 (08:05→20:07)
[2020-08-14] MEDS: Furosemide 40 MG Tab PO SCH ×2 (08:06→14:03)
[2020-08-14] MEDS: Aspirin 81 MG Tab.EC PO SCH (08:06)
[2020-08-14] MEDS: UMECLIDINIUM INH SCH (08:07)
[2020-08-14] MEDS: Formoterol/Mometasone 200-5 MCG 8.8 GM Inhaler IH SCH ×2 (08:07→20:07)
[2020-08-14] MEDS: Omeprazole 20 MG Cap.CR PO SCH ×2 (08:07→20:08)
[2020-08-14] MEDS: Levofloxacin 750 MG Tab PO SCH (10:32)
[2020-08-14] MEDS: atorvaSTATin 40 MG Tab PO SCH (20:08)
[2020-08-15] MEDS: Furosemide 40 MG Tab PO SCH ×2 (08:02→12:13)
[2020-08-15] MEDS: Omeprazole 20 MG Cap.CR PO SCH ×2 (08:02→19:38)
[2020-08-15] MEDS: Lisinopril 10 MG Tab PO SCH (08:03)
[2020-08-15] MEDS: Ferrous Sulfate 325 MG Tab PO SCH ×2 (08:03→17:17)
[2020-08-15] MEDS: Tamsulosin 0.4 MG Cap.ER PO SCH (08:03)
[2020-08-15] MEDS: Potassium Chloride 20 MEQ Tab.ER PO SCH (08:03)
[2020-08-15] MEDS: amLODIPine 5 MG Tab PO SCH (08:04)
[2020-08-15] MEDS: Metoprolol Tartrate 25 MG Tab PO SCH ×2 (08:04→19:38)
[2020-08-15] MEDS: Aspirin 81 MG Tab.EC PO SCH (08:04)
[2020-08-15] MEDS: Formoterol/Mometasone 200-5 MCG 8.8 GM Inhaler IH SCH ×2 (08:13→19:39)
[2020-08-15] MEDS: Levofloxacin 750 MG Tab PO SCH (11:49)
[2020-08-15] MEDS: atorvaSTATin 40 MG Tab PO SCH (19:38)
[2020-08-16] MEDS: Potassium Chloride 20 MEQ Tab.ER PO SCH (07:47)
[2020-08-16] MEDS: Lisinopril 10 MG Tab PO SCH (07:48)
[2020-08-16] MEDS: Tamsulosin 0.4 MG Cap.ER PO SCH (07:48)
[2020-08-16] MEDS: amLODIPine 5 MG Tab PO SCH (07:49)
[2020-08-16] MEDS: Metoprolol Tartrate 25 MG Tab PO SCH ×2 (07:49→19:48)
[2020-08-16] MEDS: Ferrous Sulfate 325 MG Tab PO SCH ×2 (07:49→17:06)
[2020-08-16] MEDS: Formoterol/Mometasone 200-5 MCG 8.8 GM Inhaler IH SCH ×2 (07:51→19:47)
[2020-08-16] MEDS: Omeprazole 20 MG Cap.CR PO SCH ×2 (07:51→19:47)
[2020-08-16] MEDS: Furosemide 40 MG Tab PO SCH ×2 (07:51→12:42)
[2020-08-16] MEDS: Aspirin 81 MG Tab.EC PO SCH (07:51)
[2020-08-16] MEDS: Levofloxacin 750 MG Tab PO SCH (10:18)
--- NOTE | 2020-08-16 18:13 | PCM.PN ---
- General Info Date of Service: 08/16/20 Subjective Update: Patient continues to be very weak and tired with ambulation. PT/OT working well and improvement is gradual. He denies any other issues today. Functional Status: Reports: Pain Controlled, Tolerating Diet - Review of Systems General: Reports: Weakness, Fatigue HEENT: Reports: No Symptoms Pulmonary: Reports: Shortness of Breath, Wheezing Cardiovascular: Reports: No Symptoms Gastrointestinal: Reports: No Symptoms Genitourinary: Reports: Frequency Musculoskeletal: Reports: Joint Pain Skin: Reports: No Symptoms Neurological: Reports: Difficulty Walking, Weakness - Patient Data Vitals - Most Recent: Last Vital Signs Temp 36.4 C 08/16/20 08:23 Pulse 85 08/16/20 08:23 Resp 24 H 08/16/20 08:23 BP 115/74 08/16/20 08:23 Pulse Ox 93 L 08/16/20 08:23 Weight - Most Recent: 79.197 kg I&O - Last 24 Hours: Intake & Output 08/16/20 08/16/20 08/16/20 06:59 14:59 22:59 Intake Total 240 3600 Output Total 2 Balance 238 3600 Med Orders - Current: Current Medications Albuterol/Ipratropium (Duoneb 3.0-0.5 Mg/3 Ml) 3 ml NEB Q4H PRN PRN Reason: Shortness of Breath Amlodipine Besylate (Norvasc) 5 mg PO DAILY [facility] Last Admin: 08/16/20 07:49 Dose: 5 mg Documented by: Aspirin (Halfprin) 81 mg PO DAILY [facility] Last Admin: 08/16/20 07:51 Dose: 81 mg Documented by: Atorvastatin Calcium (Lipitor) 40 mg PO QPM [facility] Last Admin: 08/15/20 19:38 Dose: 40 mg Documented by: Ferrous Sulfate (Ferrous Sulfate) 325 mg PO BIDMEALS [facility] Last Admin: 08/16/20 17:06 Dose: 325 mg Documented by: Furosemide (Lasix) 40 mg PO BID@0800,1300 [facility] Last Admin: 08/16/20 12:42 Dose: 40 mg Documented by: Levofloxacin (Levaquin) 750 mg PO Q24H [facility] Stop: 08/17/20 10:31 Last Admin: 08/16/20 10:18 Dose: 750 mg Documented by: Lisinopril (Prinivil) 10 mg PO DAILY [facility] Last Admin: 08/16/20 07:48 Dose: 10 mg Documented by: Lorazepam (Ativan) 0.5 mg PO TID PRN PRN Reason: Anxiety Melatonin (Melatonin) 6 mg PO BEDTIME PRN PRN Reason: Insomnia Metoprolol Tartrate (Lopressor) 12.5 mg PO BID [facility] Last Admin: 08/16/20 07:49 Dose: 12.5 mg Documented by: Mometasone Furoate/Formoterol Fumar (Dulera 200-5 Mcg) 2 puff IH BID [facility] Last Admin: 08/16/20 07:51 Dose: 2 puff Documented by: Incruse Ellipta 62. (5mcg/Act Inh) 1 each INH DAILY [facility] Last Admin: 08/14/20 08:07 Dose: 1 each Documented by: Omeprazole (Omeprazole) 40 mg PO BIDAC [facility] Last Admin: 08/16/20 07:51 Dose: 40 mg Documented by: Potassium Chloride (Klor-Con M20) 40 meq PO DAILY [facility] Last Admin: 08/16/20 07:47 Dose: 40 meq Documented by: Tamsulosin HCl (Flomax) 0.4 mg PO DAILY [facility] Last Admin: 08/16/20 07:48 Dose: 0.4 mg Documented by: Tramadol HCl (Ultram) 50 mg PO Q6H PRN PRN Reason: Pain Discontinued Medications Albuterol/Ipratropium (Duoneb 3.0-0.5 Mg/3 Ml) ml NEB Q4H PRN PRN Reason: Shortness of Breath Amlodipine Besylate (Norvasc) 5 mg PO DAILY [facility] Aspirin (Halfprin) 81 mg PO DAILY [facility] Atorvastatin Calcium (Lipitor) 40 mg PO QPM [facility] Ferrous Sulfate (Ferrous Sulfate) 325 mg PO BIDMEALS [facility] Furosemide (Lasix) 20 mg PO BID [facility] Lorazepam (Ativan) 0.5 mg PO TID PRN PRN Reason: Anxiety Non-Formulary Medication (Umeclidinium Brm/Vilanterol Tr [Anoro Ellipta 62.5-25 Mcg]) 1 puff IH DAILY [facility] Sodium Chloride (Saline Flush) 10 ml FLUSH ASDIRECTED PRN PRN Reason: Keep Vein Open Sodium Chloride (Saline Flush) 10 ml FLUSH ASDIRECTED PRN PRN Reason: Keep Vein Open Sodium Chloride (Saline Flush) 10 ml FLUSH BID [facility] Last Admin: 08/13/20 19:46 Dose: Not Given Documented by: - Exam General: Alert HEENT: Pupils Equal, Pupils Reactive, EOMI Neck: Supple Lungs: Normal Respiratory Effort, Wheezing Cardiovascular: Regular Rate, Regular Rhythm GI/Abdominal Exam: Normal Bowel Sounds, Soft, Non-Tender Back Exam: Normal Inspection Extremities: Normal Inspection Sepsis Event Note - Evaluation Sepsis Screening Result: No Definite Risk - Focused Exam Vital Signs: Vital Signs Temp Pulse Pulse Resp BP BP Pulse Ox 08/16/20 08:23 36.4 C 85 24 H 115/74 93 L 08/16/20 07:49 85 115/74 08/16/20 07:48 115/74 - Problem List Review Problem List Initiated/Reviewed/Updated: Yes - Plan Plan:: Patient will continue PT/OT. F/u Dermatology for skin lesion of scalp. No changes to plan of care.
[2020-08-16] MEDS: atorvaSTATin 40 MG Tab PO SCH (19:47)
[2020-08-16] MEDS: Sodium Chloride 0.9% 10 ML Syringe FLUSH SCH (21:29)
[2020-08-17] MEDS: Omeprazole 20 MG Cap.CR PO SCH ×2 (07:26→19:16)
[2020-08-17] MEDS: amLODIPine 5 MG Tab PO SCH (07:26)
[2020-08-17] MEDS: Lisinopril 10 MG Tab PO SCH (07:26)
[2020-08-17] MEDS: Aspirin 81 MG Tab.EC PO SCH (07:26)
[2020-08-17] MEDS: Metoprolol Tartrate 25 MG Tab PO SCH ×2 (07:27→19:17)
[2020-08-17] MEDS: Tamsulosin 0.4 MG Cap.ER PO SCH (07:27)
[2020-08-17] MEDS: Ferrous Sulfate 325 MG Tab PO SCH ×2 (07:27→17:01)
[2020-08-17] MEDS: Formoterol/Mometasone 200-5 MCG 8.8 GM Inhaler IH SCH ×2 (07:27→19:41)
[2020-08-17] MEDS: Furosemide 40 MG Tab PO SCH ×2 (07:27→12:54)
[2020-08-17] MEDS: Potassium Chloride 20 MEQ Tab.ER PO SCH (07:27)
[2020-08-17] MEDS: Levofloxacin 750 MG Tab PO SCH (10:19)
[2020-08-17] MEDS: Melatonin 3 MG Tab PO PRN (19:16)
[2020-08-17] MEDS: atorvaSTATin 40 MG Tab PO SCH (19:16)
[2020-08-18] MEDS: Potassium Chloride 20 MEQ Tab.ER PO SCH (07:40)
[2020-08-18] MEDS: Formoterol/Mometasone 200-5 MCG 8.8 GM Inhaler IH SCH ×2 (07:40→19:50)
[2020-08-18] MEDS: Furosemide 40 MG Tab PO SCH ×2 (07:41→13:00)
[2020-08-18] MEDS: Tamsulosin 0.4 MG Cap.ER PO SCH (07:41)
[2020-08-18] MEDS: Metoprolol Tartrate 25 MG Tab PO SCH ×2 (07:41→19:50)
[2020-08-18] MEDS: Aspirin 81 MG Tab.EC PO SCH (07:41)
[2020-08-18] MEDS: Ferrous Sulfate 325 MG Tab PO SCH ×2 (07:41→17:49)
[2020-08-18] MEDS: amLODIPine 5 MG Tab PO SCH (07:41)
[2020-08-18] MEDS: Lisinopril 10 MG Tab PO SCH (07:42)
[2020-08-18] MEDS: Omeprazole 20 MG Cap.CR PO SCH ×2 (07:42→19:50)
[2020-08-18] MEDS: Mupirocin Oint 22 GM Tube TOP SCH ×2 (13:00→19:50)
[2020-08-18] MEDS: atorvaSTATin 40 MG Tab PO SCH (19:50)
[2020-08-18] MEDS: LORazepam 0.5 MG Tab PO PRN (19:50)
[2020-08-19] MEDS: Melatonin 3 MG Tab PO PRN ×2 (00:45→19:33)
[2020-08-19] MEDS: Omeprazole 20 MG Cap.CR PO SCH ×2 (07:03→19:30)
[2020-08-19] MEDS: Mupirocin Oint 22 GM Tube TOP SCH ×3 (07:42→19:31)
[2020-08-19] MEDS: Aspirin 81 MG Tab.EC PO SCH (08:19)
[2020-08-19] MEDS: Formoterol/Mometasone 200-5 MCG 8.8 GM Inhaler IH SCH ×2 (08:19→19:32)
[2020-08-19] MEDS: Tamsulosin 0.4 MG Cap.ER PO SCH (08:19)
[2020-08-19] MEDS: Potassium Chloride 20 MEQ Tab.ER PO SCH (08:19)
[2020-08-19] MEDS: Ferrous Sulfate 325 MG Tab PO SCH ×2 (08:19→17:00)
[2020-08-19] MEDS: amLODIPine 5 MG Tab PO SCH (08:20)
[2020-08-19] MEDS: Metoprolol Tartrate 25 MG Tab PO SCH ×2 (08:20→19:30)
[2020-08-19] MEDS: Furosemide 40 MG Tab PO SCH ×2 (08:20→13:11)
[2020-08-19] MEDS: Lisinopril 10 MG Tab PO SCH (08:20)
[2020-08-19] MEDS: atorvaSTATin 40 MG Tab PO SCH (19:29)
[2020-08-19] MEDS: LORazepam 0.5 MG Tab PO PRN (19:33)
[2020-08-20] MEDS: Aspirin 81 MG Tab.EC PO SCH (08:12)
[2020-08-20] MEDS: Furosemide 40 MG Tab PO SCH ×2 (08:12→13:48)
[2020-08-20] MEDS: Omeprazole 20 MG Cap.CR PO SCH ×2 (08:12→19:48)
[2020-08-20] MEDS: amLODIPine 5 MG Tab PO SCH (08:13)
[2020-08-20] MEDS: Formoterol/Mometasone 200-5 MCG 8.8 GM Inhaler IH SCH ×2 (08:13→19:47)
[2020-08-20] MEDS: Potassium Chloride 20 MEQ Tab.ER PO SCH (08:13)
[2020-08-20] MEDS: Tamsulosin 0.4 MG Cap.ER PO SCH (08:13)
[2020-08-20] MEDS: Ferrous Sulfate 325 MG Tab PO SCH ×2 (08:13→17:01)
[2020-08-20] MEDS: Metoprolol Tartrate 25 MG Tab PO SCH ×2 (08:14→19:49)
[2020-08-20] MEDS: Lisinopril 10 MG Tab PO SCH (08:14)
[2020-08-20] MEDS: Mupirocin Oint 22 GM Tube TOP SCH ×3 (08:16→19:46)
[2020-08-20] MEDS: atorvaSTATin 40 MG Tab PO SCH (19:48)
[2020-08-20] MEDS: LORazepam 0.5 MG Tab PO PRN (19:48)
[2020-08-21] MEDS: Omeprazole 20 MG Cap.CR PO SCH ×2 (06:27→20:01)
[2020-08-21] MEDS: Potassium Chloride 20 MEQ Tab.ER PO SCH (07:53)
[2020-08-21] MEDS: Formoterol/Mometasone 200-5 MCG 8.8 GM Inhaler IH SCH ×2 (07:53→20:01)
[2020-08-21] MEDS: UMECLIDINIUM INH SCH (07:53)
[2020-08-21] MEDS: Aspirin 81 MG Tab.EC PO SCH (07:54)
[2020-08-21] MEDS: Furosemide 40 MG Tab PO SCH ×2 (07:54→15:30)
[2020-08-21] MEDS: Tamsulosin 0.4 MG Cap.ER PO SCH (07:54)
[2020-08-21] MEDS: Ferrous Sulfate 325 MG Tab PO SCH ×2 (07:54→18:10)
[2020-08-21] MEDS: Metoprolol Tartrate 25 MG Tab PO SCH ×2 (07:54→20:00)
[2020-08-21] MEDS: amLODIPine 5 MG Tab PO SCH (07:54)
[2020-08-21] MEDS: Lisinopril 10 MG Tab PO SCH (07:54)
[2020-08-21] MEDS: Mupirocin Oint 22 GM Tube TOP SCH ×2 (09:33→20:01)
[2020-08-21] MEDS: LORazepam 0.5 MG Tab PO PRN (20:06)
[2020-08-21] MEDS: atorvaSTATin 40 MG Tab PO SCH (20:06)
[2020-08-22] MEDS: Formoterol/Mometasone 200-5 MCG 8.8 GM Inhaler IH SCH ×2 (07:57→20:28)
[2020-08-22] MEDS: UMECLIDINIUM INH SCH (07:58)
[2020-08-22] MEDS: Furosemide 40 MG Tab PO SCH ×2 (07:59→12:49)
[2020-08-22] MEDS: Omeprazole 20 MG Cap.CR PO SCH ×2 (07:59→20:33)
[2020-08-22] MEDS: Aspirin 81 MG Tab.EC PO SCH (07:59)
[2020-08-22] MEDS: Ferrous Sulfate 325 MG Tab PO SCH ×2 (07:59→17:20)
[2020-08-22] MEDS: Potassium Chloride 20 MEQ Tab.ER PO SCH (07:59)
[2020-08-22] MEDS: Tamsulosin 0.4 MG Cap.ER PO SCH (07:59)
[2020-08-22] MEDS: Lisinopril 10 MG Tab PO SCH (08:00)
[2020-08-22] MEDS: Mupirocin Oint 22 GM Tube TOP SCH ×2 (08:00→20:27)
[2020-08-22] MEDS: Metoprolol Tartrate 25 MG Tab PO SCH ×2 (08:02→20:28)
[2020-08-22] MEDS: amLODIPine 5 MG Tab PO SCH (08:02)
[2020-08-22] MEDS: LORazepam 0.5 MG Tab PO PRN (20:26)
[2020-08-22] MEDS: atorvaSTATin 40 MG Tab PO SCH (20:28)
[2020-08-23] MEDS: Potassium Chloride 20 MEQ Tab.ER PO SCH (07:20)
[2020-08-23] MEDS: Ferrous Sulfate 325 MG Tab PO SCH ×2 (07:21→18:29)
[2020-08-23] MEDS: Metoprolol Tartrate 25 MG Tab PO SCH ×2 (07:21→20:06)
[2020-08-23] MEDS: Aspirin 81 MG Tab.EC PO SCH (07:22)
[2020-08-23] MEDS: Tamsulosin 0.4 MG Cap.ER PO SCH (07:22)
[2020-08-23] MEDS: amLODIPine 5 MG Tab PO SCH (07:22)
[2020-08-23] MEDS: Furosemide 40 MG Tab PO SCH ×2 (07:22→12:22)
[2020-08-23] MEDS: Lisinopril 10 MG Tab PO SCH (07:22)
[2020-08-23] MEDS: Omeprazole 20 MG Cap.CR PO SCH ×2 (07:23→20:10)
[2020-08-23] MEDS: Mupirocin Oint 22 GM Tube TOP SCH ×2 (07:23→20:07)
[2020-08-23] MEDS: Formoterol/Mometasone 200-5 MCG 8.8 GM Inhaler IH SCH ×2 (07:23→20:12)
[2020-08-23] MEDS: UMECLIDINIUM INH SCH (07:24)
--- NOTE | 2020-08-23 19:40 | PCM.PN ---
- General Info Date of Service: 08/23/20 Subjective Update: Patient has improved mobility. He has been up and about but should be using his walker for his fall risk. He denies any other issues or concerns the past week. Functional Status: Reports: Pain Controlled, Tolerating Diet - Review of Systems General: Reports: Weakness, Fatigue HEENT: Reports: No Symptoms Pulmonary: Reports: Shortness of Breath Cardiovascular: Reports: No Symptoms Gastrointestinal: Reports: No Symptoms Genitourinary: Reports: Frequency Musculoskeletal: Reports: No Symptoms - Patient Data Vitals - Most Recent: Last Vital Signs Temp 36.3 C 08/23/20 07:41 Pulse 70 08/23/20 07:41 Resp 20 08/23/20 07:41 BP 124/69 08/23/20 07:41 Pulse Ox 100 08/23/20 07:41 Weight - Most Recent: 79.152 kg I&O - Last 24 Hours: Intake & Output 08/23/20 08/23/20 08/23/20 06:59 14:59 22:59 Intake Total 180 1320 Balance 180 1320 Med Orders - Current: Current Medications Albuterol/Ipratropium (Duoneb 3.0-0.5 Mg/3 Ml) 3 ml NEB Q4H PRN PRN Reason: Shortness of Breath Amlodipine Besylate (Norvasc) 5 mg PO DAILY [facility] Last Admin: 08/23/20 07:22 Dose: 5 mg Documented by: Aspirin (Halfprin) 81 mg PO DAILY [facility] Last Admin: 08/23/20 07:22 Dose: 81 mg Documented by: Atorvastatin Calcium (Lipitor) 40 mg PO QPM [facility] Last Admin: 08/22/20 20:28 Dose: 40 mg Documented by: Ferrous Sulfate (Ferrous Sulfate) 325 mg PO BIDMEALS [facility] Last Admin: 08/23/20 18:29 Dose: 325 mg Documented by: Furosemide (Lasix) 40 mg PO BID@0800,1300 [facility] Last Admin: 08/23/20 12:22 Dose: 40 mg Documented by: Lisinopril (Prinivil) 10 mg PO DAILY [facility] Last Admin: 08/23/20 07:22 Dose: 10 mg Documented by: Lorazepam (Ativan) 0.5 mg PO TID PRN PRN Reason: Anxiety Last Admin: 08/22/20 20:26 Dose: 0.5 mg Documented by: Melatonin (Melatonin) 6 mg PO BEDTIME PRN PRN Reason: Insomnia Last Admin: 08/19/20 19:33 Dose: 6 mg Documented by: Metoprolol Tartrate (Lopressor) 12.5 mg PO BID [facility] Last Admin: 08/23/20 07:21 Dose: 12.5 mg Documented by: Mometasone Furoate/Formoterol Fumar (Dulera 200-5 Mcg) 2 puff IH BID [facility] Last Admin: 08/23/20 07:23 Dose: 2 puff Documented by: Mupirocin (Bactroban Oint) 0 gm TOP BID [facility] Last Admin: 08/23/20 07:23 Dose: 1 applic Documented by: Lorena Scottta 62. (5mcg/Act Inh) 1 each INH DAILY [facility] Last Admin: 08/23/20 07:24 Dose: 1 each Documented by: Omeprazole (Omeprazole) 40 mg PO BIDAC [facility] Last Admin: 08/23/20 07:23 Dose: 40 mg Documented by: Potassium Chloride (Klor-Con M20) 40 meq PO DAILY [facility] Last Admin: 08/23/20 07:20 Dose: 40 meq Documented by: Tamsulosin HCl (Flomax) 0.4 mg PO DAILY [facility] Last Admin: 08/23/20 07:22 Dose: 0.4 mg Documented by: Tramadol HCl (Ultram) 50 mg PO Q6H PRN PRN Reason: Pain Discontinued Medications Albuterol/Ipratropium (Duoneb 3.0-0.5 Mg/3 Ml) ml NEB Q4H PRN PRN Reason: Shortness of Breath Amlodipine Besylate (Norvasc) 5 mg PO DAILY [facility] Aspirin (Halfprin) 81 mg PO DAILY [facility] Atorvastatin Calcium (Lipitor) 40 mg PO QPM [facility] Ferrous Sulfate (Ferrous Sulfate) 325 mg PO BIDMEALS [facility] Furosemide (Lasix) 20 mg PO BID [facility] Levofloxacin (Levaquin) 750 mg PO Q24H [facility] Stop: 08/17/20 10:31 Last Admin: 08/17/20 10:19 Dose: 750 mg Documented by: Lorazepam (Ativan) 0.5 mg PO TID PRN PRN Reason: Anxiety Mupirocin (Bactroban Oint) 1 gm TOP TID [facility] Last Admin: 08/21/20 09:33 Dose: 1 applic Documented by: Non-Formulary Medication (Umeclidinium Brm/Vilanterol Tr [Anoro Ellipta 62.5-25 Mcg]) 1 puff IH DAILY [facility] Sodium Chloride (Saline Flush) 10 ml FLUSH ASDIRECTED PRN PRN Reason: Keep Vein Open Sodium Chloride (Saline Flush) 10 ml FLUSH ASDIRECTED PRN PRN Reason: Keep Vein Open Sodium Chloride (Saline Flush) 10 ml FLUSH BID [facility] Last Admin: 08/16/20 21:29 Dose: Not Given Documented by: - Exam General: Alert, Cooperative HEENT: Pupils Equal, Pupils Reactive, EOMI Neck: Supple Lungs: Normal Respiratory Effort, Rhonchi Cardiovascular: Regular Rate, Regular Rhythm GI/Abdominal Exam: Normal Bowel Sounds, Soft Back Exam: Normal Inspection Sepsis Event Note - Evaluation Sepsis Screening Result: No Definite Risk - Focused Exam Vital Signs: Vital Signs Temp Pulse Resp BP Pulse Ox 08/23/20 07:41 36.3 C 70 20 124/69 100 - Problem List & Annotations (1) CHF (congestive heart failure) SNOMED Code(s): 86156561 Code(s): I50.9 - HEART FAILURE, UNSPECIFIED Status: Acute Qualifiers: Heart failure type: unspecified Heart failure chronicity: unspecified Qualified Code(s): I50.9 - Heart failure, unspecified (2) Memory loss or impairment SNOMED Code(s): 145181350 Code(s): R41.3 - OTHER AMNESIA Status: Acute Priority: High (3) Severe muscle deconditioning SNOMED Code(s): 117563658 Code(s): R29.898 - OTH SYMPTOMS AND SIGNS INVOLVING THE MUSCULOSKELETAL SYSTEM Status: Acute Priority: High (4) Rhabdomyolysis SNOMED Code(s): 177854404 Code(s): M62.82 - RHABDOMYOLYSIS Status: Resolved Priority: High - Problem List Review Problem List Initiated/Reviewed/Updated: Yes - Plan Plan:: Continue PT/OT and management. Pain controlled. Patient remains with memory issues. Considering placement in care center for safety.
[2020-08-23] MEDS: atorvaSTATin 40 MG Tab PO SCH (20:05)
[2020-08-23] MEDS: LORazepam 0.5 MG Tab PO PRN (20:10)
[2020-08-23] MEDS: Melatonin 3 MG Tab PO PRN (20:11)
[2020-08-24] MEDS: Metoprolol Tartrate 25 MG Tab PO SCH ×2 (07:24→19:23)
[2020-08-24] MEDS: amLODIPine 5 MG Tab PO SCH (07:25)
[2020-08-24] MEDS: Tamsulosin 0.4 MG Cap.ER PO SCH (07:25)
[2020-08-24] MEDS: Potassium Chloride 20 MEQ Tab.ER PO SCH (07:25)
[2020-08-24] MEDS: Lisinopril 10 MG Tab PO SCH (07:26)
[2020-08-24] MEDS: Furosemide 40 MG Tab PO SCH ×2 (07:26→13:46)
[2020-08-24] MEDS: Ferrous Sulfate 325 MG Tab PO SCH ×2 (07:26→17:07)
[2020-08-24] MEDS: Mupirocin Oint 22 GM Tube TOP SCH ×2 (07:26→19:25)
[2020-08-24] MEDS: Aspirin 81 MG Tab.EC PO SCH (07:26)
[2020-08-24] MEDS: UMECLIDINIUM INH SCH (07:27)
[2020-08-24] MEDS: Omeprazole 20 MG Cap.CR PO SCH ×2 (07:27→19:24)
[2020-08-24] MEDS: Formoterol/Mometasone 200-5 MCG 8.8 GM Inhaler IH SCH ×2 (07:27→19:25)
[2020-08-24] MEDS: atorvaSTATin 40 MG Tab PO SCH (19:25)
[2020-08-25] MEDS: Tamsulosin 0.4 MG Cap.ER PO SCH (08:04)
[2020-08-25] MEDS: Lisinopril 10 MG Tab PO SCH (08:05)
[2020-08-25] MEDS: Potassium Chloride 20 MEQ Tab.ER PO SCH (08:05)
[2020-08-25] MEDS: Aspirin 81 MG Tab.EC PO SCH (08:05)
[2020-08-25] MEDS: Metoprolol Tartrate 25 MG Tab PO SCH ×2 (08:06→20:05)
[2020-08-25] MEDS: Omeprazole 20 MG Cap.CR PO SCH ×2 (08:06→20:05)
[2020-08-25] MEDS: Ferrous Sulfate 325 MG Tab PO SCH ×2 (08:06→16:52)
[2020-08-25] MEDS: amLODIPine 5 MG Tab PO SCH (08:07)
[2020-08-25] MEDS: Furosemide 40 MG Tab PO SCH ×2 (08:08→12:46)
[2020-08-25] MEDS: Formoterol/Mometasone 200-5 MCG 8.8 GM Inhaler IH SCH ×2 (08:09→20:05)
[2020-08-25] MEDS: UMECLIDINIUM INH SCH (08:09)
[2020-08-25] MEDS: Mupirocin Oint 22 GM Tube TOP SCH ×2 (08:12→20:21)
--- OUTSIDE RECORDS SUMMARY | 2020-08-25 11:41 | XMSREPORT ---
:1940 Author Name Reasy Address Unavailable Unavailable , Care Team Providers Name Role Phone Quo M.D. Unavailable Unavailable Lane Unavailable Unavailable Quo Unavailable Unavailable Unavailable Unavailable Unavailable Reason for Referral Test for [email or web address] Assessments No Information Problems GERD (gastroesophageal reflux disease) (530.81) (K21.9) Anticoagulant long-term use (V58.61) (Z79.01) Hyperlipidemia (272.4) (E78.5) A-fib (427.31) (I48.91) Chronic obstructive pulmonary disease (496) (J44.9) Arteriosclerotic heart disease (414.00) (I25.10) Scalp lesion (709.9) (L98.9) CHF (congestive heart failure) (428.0) (I50.9) Allergies and Adverse Reactions No Known Drug Allergies (Allergy) Medications traMADol HCl - 50 MG Oral Tablet; TAKE 1 TABLET Every 6 hour s PRN Start: 20-Jul-2020 Refills: 0 LORazepam 0.5 MG Oral Tablet; TAKE 1 TABLET 3 TIMES DAILY NEEDED. Start: 20-Jul-2020 Refills: 0 Lisinopril 10 MG Oral Tablet; TAKE 1 TABLET DAILY. Start: 20-Jul-2020 Quantity: 90 Refills: 2 amLODIPine Besylate 5 MG Oral Tablet; TAKE 1 TABLET DAILY. Start: 20-Jul-2020 Quantity: 30 Refills: 0 Aspirin Adult Low Strength 81 MG Oral Ta blet Delayed Release; TAKE 1 TABLET DAILY. Start: 20-Jul-2020 Refills: 0 Dulera 200-5 MCG/ACT Inhalation Aerosol Start: 06-Jul-2020 Quantity: 13 Refills: 0 Polyethylene Glycol 3350 17 GM/SCOOP Ora l Powder; MIX AND CONSUME 17GM INTO 4-8 OUNCES OF LIQUID 1 TIME A DAY NEEDED FOR CONSTIPATION Start: 12-Jul-2020 Quantity: 510 Refills: 0 Tamsulosin HCl - 0.4 MG Oral Capsule; TAKE 1 CAPSULE BY MOUT H ONCE A DAY Start: 06-Jul-2020 Quantity: 30 Refills: 0 Omeprazole 40 MG Oral Capsule Delayed Re lease; TAKE 1 CAPSULE BY MOUTH ONCE A DAY Start: 06-Jul-2020 Quantity: 30 Refills: 0 Melatonin 3 MG Oral Tablet; TAKE 2 TABLE TS (6 MG) BY MOUTH EVERY NIGHT AT BEDTIME NEEDED FOR INSOMNIA Start: 06-Jul-2020 Quantity: 30 Refills: 0 Atorvastatin Calcium 40 MG Oral Tablet; TAKE 1 TABLET BY MOUTH EVERY NIGHT AT BEDTIME Start: 06-Jul-2020 Quantity: 30 Refills: 0 Furosemide 40 MG Oral Tablet; Take 1 tablet daily Rufina Shah Start: 11-Jan-2016 Quantity: 90 Refills: 0 Ipratropium-Albuterol 0.5-2.5 (3) MG/3ML Inhalation Solution; ADMINISTER ONE 3 ML VIAL 4 TIMES DAILY VIA NEBULIZATION. [address] Start: 016 Quantity: 2 60 x 3 ML Plas Cont Refills: 0 Procedures History of Pacemaker Placement Status: C ompleted 24-Aug-2005 History of Previous Stent Placement Stat us: Completed History of Reported Hx Of Hip Replacement - Left Side Status: Completed History of Total Hip Replacement Right S tatus: Completed History of Colonoscopy Status: Completed 27-Jul-[address] atus: Completed 21-Jul-2020 Immunizations [facility] Pneumococcal Vaccine 23 On: 26-Aug-2007 Influenza 0 On: 26-Aug-2007 Lot #: [id number], Influenza 0 On: 30-Sep-2009 Lot #: [id number], Influenza 0 On: 04-Jul-2012 Td On: 03-Jun-2013 Influenza 0 On: 02-Jul-2013 Lot #: [id number], [facility] Flu Vaccine Quadrivalent (3 yrs and above) On: 4 Lot #: [id number], [facility] [id number] On: 15-Mar-2015 Lot #: [id number], [employer] Zostavax [id number] UNT/0.65ML SUSR On: 14-Apr-2015 [facility] Flu Vaccine Quadrivalent (3 yrs and above) On: 13-Jul-20 15 Lot #: [id number], [employer] Fluarix 0.5 ML NOEL On: 14-Jun-2016 Lot #: [id number], GLAXO CHAVEZ BLAIR Fluzone Quadrivalent 0.5 ML Intramuscular Suspension On: Lot #: [id number], [employer] Fluzone Quadrivalent 0.5 ML Intramuscular Suspension P refilled Syringe On: 18-Jun-2018 Lot #: [id number], [employer] Fluzone High-Dose 0.5 ML Intramuscular Suspension Pref illed Syringe On: 02-Jul-2019 Lot #: [id number], [employer] Fluzone High-Dose 0.5 ML Intramuscular Suspension Pref illed Syringe 0 On: 22-Jun-2020 Lot #: [id number], [employer] Family History Family history of myocardial infarction (V17.3) (Z82.49) Sta tus: Active Family history of diabetes mellitus (V18.0) (Z83.3) Status: Active Family history of pancreatic cancer (V16.0) (Z80.0) Status: Active Social History - Ex-smoker Plan of Treatment Planned Goals not documented Results No Known Results Results not documented
[2020-08-25] MEDS: atorvaSTATin 40 MG Tab PO SCH (20:05)
[2020-08-26] MEDS: Omeprazole 20 MG Cap.CR PO SCH ×2 (07:43→19:42)
[2020-08-26] MEDS: amLODIPine 5 MG Tab PO SCH (07:44)
[2020-08-26] MEDS: Tamsulosin 0.4 MG Cap.ER PO SCH (07:45)
[2020-08-26] MEDS: Aspirin 81 MG Tab.EC PO SCH (07:45)
[2020-08-26] MEDS: Ferrous Sulfate 325 MG Tab PO SCH ×2 (07:46→16:58)
[2020-08-26] MEDS: Furosemide 40 MG Tab PO SCH ×2 (07:46→12:08)
[2020-08-26] MEDS: Metoprolol Tartrate 25 MG Tab PO SCH ×3 (07:46→19:44)
[2020-08-26] MEDS: Lisinopril 10 MG Tab PO SCH (07:47)
[2020-08-26] MEDS: Potassium Chloride 20 MEQ Tab.ER PO SCH (07:47)
[2020-08-26] MEDS: Mupirocin Oint 22 GM Tube TOP SCH (07:48)
[2020-08-26] MEDS: Formoterol/Mometasone 200-5 MCG 8.8 GM Inhaler IH SCH ×2 (07:48→19:40)
[2020-08-26] MEDS: UMECLIDINIUM INH SCH (07:48)
[2020-08-26] MEDS: atorvaSTATin 40 MG Tab PO SCH (19:40)
[2020-08-27] MEDS: Formoterol/Mometasone 200-5 MCG 8.8 GM Inhaler IH SCH ×2 (08:12→19:24)
[2020-08-27] MEDS: Aspirin 81 MG Tab.EC PO SCH (08:13)
[2020-08-27] MEDS: Potassium Chloride 20 MEQ Tab.ER PO SCH (08:13)
[2020-08-27] MEDS: amLODIPine 5 MG Tab PO SCH (08:14)
[2020-08-27] MEDS: Omeprazole 20 MG Cap.CR PO SCH ×2 (08:14→19:24)
[2020-08-27] MEDS: Tamsulosin 0.4 MG Cap.ER PO SCH (08:14)
[2020-08-27] MEDS: Ferrous Sulfate 325 MG Tab PO SCH ×2 (08:14→17:03)
[2020-08-27] MEDS: Furosemide 40 MG Tab PO SCH ×2 (08:14→12:28)
[2020-08-27] MEDS: UMECLIDINIUM INH SCH (08:15)
[2020-08-27] MEDS: Lisinopril 10 MG Tab PO SCH (08:15)
[2020-08-27] MEDS: Metoprolol Tartrate 25 MG Tab PO SCH ×3 (08:15→19:45)
[2020-08-27] MEDS: Mupirocin Oint 22 GM Tube TOP SCH (08:16)
[2020-08-27] MEDS: atorvaSTATin 40 MG Tab PO SCH (19:24)
[2020-08-28] MEDS: Furosemide 40 MG Tab PO SCH ×2 (08:00→12:43)
[2020-08-28] MEDS: Ferrous Sulfate 325 MG Tab PO SCH ×2 (08:24→17:07)
[2020-08-28] MEDS: Omeprazole 20 MG Cap.CR PO SCH ×2 (08:24→20:06)
[2020-08-28] MEDS: amLODIPine 5 MG Tab PO SCH (08:24)
[2020-08-28] MEDS: Potassium Chloride 20 MEQ Tab.ER PO SCH (08:24)
[2020-08-28] MEDS: Lisinopril 10 MG Tab PO SCH (08:25)
[2020-08-28] MEDS: Tamsulosin 0.4 MG Cap.ER PO SCH (08:25)
[2020-08-28] MEDS: Metoprolol Tartrate 25 MG Tab PO SCH ×2 (08:25→20:06)
[2020-08-28] MEDS: Aspirin 81 MG Tab.EC PO SCH (08:25)
[2020-08-28] MEDS: Mupirocin Oint 22 GM Tube TOP SCH (08:25)
[2020-08-28] MEDS: UMECLIDINIUM INH SCH (08:26)
[2020-08-28] MEDS: Formoterol/Mometasone 200-5 MCG 8.8 GM Inhaler IH SCH ×2 (08:26→20:05)
[2020-08-28] MEDS: Melatonin 3 MG Tab PO PRN (20:06)
[2020-08-28] MEDS: atorvaSTATin 40 MG Tab PO SCH (20:06)
[2020-08-29] MEDS: Omeprazole 20 MG Cap.CR PO SCH ×2 (06:20→19:46)
[2020-08-29] MEDS: Mupirocin Oint 22 GM Tube TOP SCH ×3 (06:28→18:00)
[2020-08-29] MEDS: amLODIPine 5 MG Tab PO SCH (07:22)
[2020-08-29] MEDS: Potassium Chloride 20 MEQ Tab.ER PO SCH (07:22)
[2020-08-29] MEDS: Tamsulosin 0.4 MG Cap.ER PO SCH (07:22)
[2020-08-29] MEDS: Ferrous Sulfate 325 MG Tab PO SCH ×2 (07:22→17:12)
[2020-08-29] MEDS: Furosemide 40 MG Tab PO SCH ×2 (07:23→12:21)
[2020-08-29] MEDS: UMECLIDINIUM INH SCH (07:23)
[2020-08-29] MEDS: Aspirin 81 MG Tab.EC PO SCH (07:23)
[2020-08-29] MEDS: Formoterol/Mometasone 200-5 MCG 8.8 GM Inhaler IH SCH ×2 (07:23→19:51)
[2020-08-29] MEDS: Metoprolol Tartrate 25 MG Tab PO SCH ×2 (07:23→19:47)
[2020-08-29] MEDS: Lisinopril 10 MG Tab PO SCH (07:24)
[2020-08-29] MEDS: atorvaSTATin 40 MG Tab PO SCH (19:46)
[2020-08-29] MEDS: Melatonin 3 MG Tab PO PRN (19:47)
[2020-08-30] MEDS: Omeprazole 20 MG Cap.CR PO SCH ×2 (07:29→19:35)
[2020-08-30] MEDS: Mupirocin Oint 22 GM Tube TOP SCH (08:09)
[2020-08-30] MEDS: Formoterol/Mometasone 200-5 MCG 8.8 GM Inhaler IH SCH ×2 (08:10→19:35)
[2020-08-30] MEDS: Tamsulosin 0.4 MG Cap.ER PO SCH (08:10)
[2020-08-30] MEDS: Ferrous Sulfate 325 MG Tab PO SCH ×2 (08:10→17:08)
[2020-08-30] MEDS: amLODIPine 5 MG Tab PO SCH (08:10)
[2020-08-30] MEDS: Potassium Chloride 20 MEQ Tab.ER PO SCH (08:11)
[2020-08-30] MEDS: Metoprolol Tartrate 25 MG Tab PO SCH ×2 (08:11→19:35)
[2020-08-30] MEDS: Lisinopril 10 MG Tab PO SCH (08:11)
[2020-08-30] MEDS: Aspirin 81 MG Tab.EC PO SCH (08:15)
[2020-08-30] MEDS: Furosemide 40 MG Tab PO SCH ×2 (08:15→14:17)
[2020-08-30] MEDS: UMECLIDINIUM INH SCH (08:15)
--- NOTE | 2020-08-30 16:07 | PCM.PN ---
- General Info Date of Service: 08/30/20 Subjective Update: Patient strength improved but likely close to baseline as he has plateaued. He denies any issues or concerns. Functional Status: Reports: Pain Controlled, Tolerating Diet, Ambulating - Review of Systems General: Reports: Weakness, Fatigue HEENT: Reports: No Symptoms Pulmonary: Reports: No Symptoms Cardiovascular: Reports: No Symptoms Gastrointestinal: Reports: No Symptoms Genitourinary: Reports: Frequency Musculoskeletal: Reports: No Symptoms - Patient Data Vitals - Most Recent: Last Vital Signs Temp 36.2 C 08/30/20 07:57 Pulse 83 08/30/20 08:11 Resp 18 08/30/20 07:57 BP 134/75 08/30/20 08:11 Pulse Ox 96 08/30/20 07:57 Weight - Most Recent: 75.75 kg I&O - Last 24 Hours: Intake & Output 08/30/20 08/30/20 08/30/20 06:59 14:59 22:59 Intake Total 240 Balance 240 Med Orders - Current: Current Medications Albuterol/Ipratropium (Duoneb 3.0-0.5 Mg/3 Ml) 3 ml NEB Q4H PRN PRN Reason: Shortness of Breath Amlodipine Besylate (Norvasc) 5 mg PO DAILY [facility] Last Admin: 08/30/20 08:10 Dose: 5 mg Documented by: Aspirin (Halfprin) 81 mg PO DAILY [facility] Last Admin: 08/30/20 08:15 Dose: 81 mg Documented by: Atorvastatin Calcium (Lipitor) 40 mg PO QPM [facility] Last Admin: 08/29/20 19:46 Dose: 40 mg Documented by: Ferrous Sulfate (Ferrous Sulfate) 325 mg PO BIDMEALS [facility] Last Admin: 08/30/20 08:10 Dose: 325 mg Documented by: Furosemide (Lasix) 40 mg PO BID@0800,1300 [facility] Last Admin: 08/30/20 14:17 Dose: 40 mg Documented by: Lisinopril (Prinivil) 10 mg PO DAILY [facility] Last Admin: 08/30/20 08:11 Dose: 10 mg Documented by: Lorazepam (Ativan) 0.5 mg PO TID PRN PRN Reason: Anxiety Last Admin: 08/23/20 20:10 Dose: 0.5 mg Documented by: Melatonin (Melatonin) 6 mg PO BEDTIME PRN PRN Reason: Insomnia Last Admin: 08/29/20 19:47 Dose: 6 mg Documented by: Metoprolol Tartrate (Lopressor) 12.5 mg PO BID [facility] Last Admin: 08/30/20 08:11 Dose: 12.5 mg Documented by: Mometasone Furoate/Formoterol Fumar (Dulera 200-5 Mcg) 2 puff IH BID [facility] Last Admin: 08/30/20 08:10 Dose: 2 puff Documented by: Mupirocin (Bactroban Oint) 0 gm TOP DAILY [facility] Last Admin: 08/30/20 08:09 Dose: 1 applic Documented by: Lorena Scottta 62. (5mcg/Act Inh) 1 each INH DAILY [facility] Last Admin: 08/30/20 08:15 Dose: 1 each Documented by: Omeprazole (Omeprazole) 40 mg PO BIDAC [facility] Last Admin: 08/30/20 07:29 Dose: 40 mg Documented by: Potassium Chloride (Klor-Con M20) 40 meq PO DAILY [facility] Last Admin: 08/30/20 08:11 Dose: 40 meq Documented by: Tamsulosin HCl (Flomax) 0.4 mg PO DAILY [facility] Last Admin: 08/30/20 08:10 Dose: 0.4 mg Documented by: Tramadol HCl (Ultram) 50 mg PO Q6H PRN PRN Reason: Pain Discontinued Medications Albuterol/Ipratropium (Duoneb 3.0-0.5 Mg/3 Ml) ml NEB Q4H PRN PRN Reason: Shortness of Breath Amlodipine Besylate (Norvasc) 5 mg PO DAILY [facility] Aspirin (Halfprin) 81 mg PO DAILY [facility] Atorvastatin Calcium (Lipitor) 40 mg PO QPM [facility] Ferrous Sulfate (Ferrous Sulfate) 325 mg PO BIDMEALS [facility] Furosemide (Lasix) 20 mg PO BID [facility] Levofloxacin (Levaquin) 750 mg PO Q24H [facility] Stop: 08/17/20 10:31 Last Admin: 08/17/20 10:19 Dose: 750 mg Documented by: Lorazepam (Ativan) 0.5 mg PO TID PRN PRN Reason: Anxiety Mupirocin (Bactroban Oint) 1 gm TOP TID [facility] Last Admin: 08/21/20 09:33 Dose: 1 applic Documented by: Mupirocin (Bactroban Oint) 0 gm TOP BID [facility] Last Admin: 08/25/20 20:21 Dose: Not Given Documented by: Non-Formulary Medication (Umeclidinium Brm/Vilanterol Tr [Anoro Ellipta 62.5-25 Mcg]) 1 puff IH DAILY [facility] Sodium Chloride (Saline Flush) 10 ml FLUSH ASDIRECTED PRN PRN Reason: Keep Vein Open Sodium Chloride (Saline Flush) 10 ml FLUSH ASDIRECTED PRN PRN Reason: Keep Vein Open Sodium Chloride (Saline Flush) 10 ml FLUSH BID [facility] Last Admin: 08/16/20 21:29 Dose: Not Given Documented by: - Exam General: Alert, Cooperative HEENT: Pupils Equal, Pupils Reactive, EOMI Neck: Supple Lungs: Clear to Auscultation, Normal Respiratory Effort Cardiovascular: Regular Rate, Regular Rhythm GI/Abdominal Exam: Normal Bowel Sounds, Soft, Non-Tender Back Exam: Normal Inspection Extremities: Normal Inspection Sepsis Event Note - Evaluation Sepsis Screening Result: No Definite Risk - Focused Exam Vital Signs: Vital Signs Temp Pulse Pulse Resp BP BP Pulse Ox 08/30/20 08:11 83 134/75 08/30/20 08:10 134/75 08/30/20 07:57 36.2 C 83 18 134/75 96 - Problem List & Annotations (1) Squamous cell carcinoma of scalp SNOMED Code(s): 610961409 Code(s): C44.42 - SQUAMOUS CELL CARCINOMA OF SKIN OF SCALP AND NECK Status: Acute Priority: High (2) CHF (congestive heart failure) SNOMED Code(s): 70833265 Code(s): I50.9 - HEART FAILURE, UNSPECIFIED Status: Chronic Priority: Low Qualifiers: Heart failure type: unspecified Heart failure chronicity: unspecified Qualified Code(s): I50.9 - Heart failure, unspecified (3) Dyspnea SNOMED Code(s): 476073210 Code(s): R06.00 - DYSPNEA, UNSPECIFIED Status: Acute Priority: High Annotation/Comment:: 01/19/2015 Feeling better and DUonebs helpful. CXR done and CBC with mild elevation of WBC. Started on Antiobitics today (4) Severe muscle deconditioning SNOMED Code(s): 656179840 Code(s): R29.898 - OTH SYMPTOMS AND SIGNS INVOLVING THE MUSCULOSKELETAL SYSTEM Status: Acute Priority: High - Problem List Review Problem List Initiated/Reviewed/Updated: Yes - Plan Plan:: Patient plan for discharge to [facility]. Discussed Oncology referral for scalp SCC lesion. Continue PT/OT as directed. No medication changes.
[2020-08-30] MEDS: atorvaSTATin 40 MG Tab PO SCH (19:35)
[2020-08-31] MEDS: Potassium Chloride 20 MEQ Tab.ER PO SCH (07:36)
[2020-08-31] MEDS: Ferrous Sulfate 325 MG Tab PO SCH (07:37)
[2020-08-31] MEDS: Formoterol/Mometasone 200-5 MCG 8.8 GM Inhaler IH SCH (07:37)
[2020-08-31] MEDS: Tamsulosin 0.4 MG Cap.ER PO SCH (07:37)
[2020-08-31] MEDS: Omeprazole 20 MG Cap.CR PO SCH (07:37)
[2020-08-31] MEDS: Aspirin 81 MG Tab.EC PO SCH (07:37)
[2020-08-31] MEDS: amLODIPine 5 MG Tab PO SCH (07:38)
[2020-08-31] MEDS: Lisinopril 10 MG Tab PO SCH (07:38)
[2020-08-31] MEDS: Metoprolol Tartrate 25 MG Tab PO SCH (07:38)
[2020-08-31] MEDS: Furosemide 40 MG Tab PO SCH ×2 (07:38→12:52)
[2020-08-31] MEDS: UMECLIDINIUM INH SCH (07:39)
[2020-08-31 07:40] VITALS: BP 132/66; PULSE 73
[2020-08-31] MEDS: Mupirocin Oint 22 GM Tube TOP SCH (07:41)
--- NOTE | 2020-09-02 10:39 | PCM.DCSUM1 ---
Discharge Summary - Discharge Data Discharge Date: 08/31/20 Discharge Disposition: DC/Tfer to [facility] 61 Condition: Good - Referral to Home Health Primary Care Physician: PCP None - Patient Instructions Diet: Usual Diet as Tolerated Activity: No Strenuous Activities Driving: Do Not Drive - Discharge Plan Home Medications: Home Meds Aspirin [Halfprin] 81 mg PO DAILY 01/18/15 [History] Lisinopril 1 tab PO DAILY 01/18/15 [History] amLODIPine [Norvasc] 1 tab PO DAILY 01/31/16 [History] atorvaSTATin Calcium [Atorvastatin Calcium] 40 mg PO QPM 01/31/16 [History] Mometasone/Formoterol [Dulera 200 Mcg/5 Mcg Inhaler] 2 puff IH BID 06/21/20 [History] traMADol [Ultram] 1 tab PO Q6H PRN 06/21/20 [History] Albuterol/Ipratropium [DuoNeb 3.0-0.5 MG/3 ML] 1 ampule NEB Q4H PRN 07/28/20 [History] Ferrous Sulfate 1 tab PO BIDMEALS 07/28/20 [History] Furosemide 1 tab PO BID 07/28/20 [History] LORazepam [Ativan] 1 tab PO TID PRN 07/28/20 [History] Melatonin 2 tab PO BEDTIME PRN 07/28/20 [History] Metoprolol Tartrate 0.5 tab PO BID 07/28/20 [History] Omeprazole 40 mg PO BIDAC 07/28/20 [History] Tamsulosin [Tamsulosin 24 Hr] 1 cap PO DAILY 07/28/20 [History] Umeclidinium Brm/Vilanterol Tr [Anoro Ellipta 62.5-25 MCG] 1 puff IH DAILY 07/28/20 [History] Mupirocin Oint [Bactroban Oint] 1 applic TOP TID 08/07/20 [History] Vitamins A and D [Vitamin A & D] 1 applic TOP BEDTIME 08/07/20 [History] Patient Handouts: Living With Heart Failure - Discharge Summary/Plan Comment DC Time >30 min.: Yes Discharge Summary/Plan Comment: Patient plan discussed. Care center instructions and reconciliation done. Toy liu to continue full cares at center. No changes to medications. Continue PT/OT as directed. Continue f/u with Oncology for SCC of scalp. F/u in clinic for H&P to [facility]. - Patient Data Vitals - Most Recent: Last Vital Signs Temp 35.9 C L 08/31/20 08:00 Pulse 73 08/31/20 08:00 Resp 18 08/31/20 08:00 BP 132/66 08/31/20 08:00 Pulse Ox 97 08/31/20 08:00 Weight - Most Recent: 75.75 kg Med Orders - Current: Current Medications Discontinued Medications Albuterol/Ipratropium (Duoneb 3.0-0.5 Mg/3 Ml) 3 ml NEB Q4H PRN PRN Reason: Shortness of Breath Albuterol/Ipratropium (Duoneb 3.0-0.5 Mg/3 Ml) ml NEB Q4H PRN PRN Reason: Shortness of Breath Amlodipine Besylate (Norvasc) 5 mg PO DAILY [facility] Last Admin: 08/31/20 07:38 Dose: 5 mg Documented by: Amlodipine Besylate (Norvasc) 5 mg PO DAILY [facility] Aspirin (Halfprin) 81 mg PO DAILY [facility] Last Admin: 08/31/20 07:37 Dose: 81 mg Documented by: Aspirin (Halfprin) 81 mg PO DAILY [facility] Atorvastatin Calcium (Lipitor) 40 mg PO QPM [facility] Last Admin: 08/30/20 19:35 Dose: 40 mg Documented by: Atorvastatin Calcium (Lipitor) 40 mg PO QPM [facility] Ferrous Sulfate (Ferrous Sulfate) 325 mg PO BIDMEALS [facility] Last Admin: 08/31/20 07:37 Dose: 325 mg Documented by: Ferrous Sulfate (Ferrous Sulfate) 325 mg PO BIDMEALS [facility] Furosemide (Lasix) 40 mg PO BID@0800,1300 [facility] Last Admin: 08/31/20 12:52 Dose: 40 mg Documented by: Furosemide (Lasix) 20 mg PO BID [facility] Levofloxacin (Levaquin) 750 mg PO Q24H [facility] Stop: 08/17/20 10:31 Last Admin: 08/17/20 10:19 Dose: 750 mg Documented by: Lisinopril (Prinivil) 10 mg PO DAILY [facility] Last Admin: 08/31/20 07:38 Dose: 10 mg Documented by: Lorazepam (Ativan) 0.5 mg PO TID PRN PRN Reason: Anxiety Lorazepam (Ativan) 0.5 mg PO TID PRN PRN Reason: Anxiety Last Admin: 08/23/20 20:10 Dose: 0.5 mg Documented by: Melatonin (Melatonin) 6 mg PO BEDTIME PRN PRN Reason: Insomnia Last Admin: 08/29/20 19:47 Dose: 6 mg Documented by: Metoprolol Tartrate (Lopressor) 12.5 mg PO BID [facility] Last Admin: 08/31/20 07:38 Dose: 12.5 mg Documented by: Mometasone Furoate/Formoterol Fumar (Dulera 200-5 Mcg) 2 puff IH BID [facility] Last Admin: 08/31/20 07:37 Dose: 2 puff Documented by: Mupirocin (Bactroban Oint) 1 gm TOP TID [facility] Last Admin: 08/21/20 09:33 Dose: 1 applic Documented by: Mupirocin (Bactroban Oint) 0 gm TOP BID [facility] Last Admin: 08/25/20 20:21 Dose: Not Given Documented by: Mupirocin (Bactroban Oint) 0 gm TOP DAILY [facility] Last Admin: 08/31/20 07:41 Dose: 1 applic Documented by: Incruse Ellipta 62. (5mcg/Act Inh) 1 each INH DAILY [facility] Last Admin: 08/31/20 07:39 Dose: 1 each Documented by: Non-Formulary Medication (Umeclidinium Brm/Vilanterol Tr [Anoro Ellipta 62.5-25 Mcg]) 1 puff IH DAILY [facility] Omeprazole (Omeprazole) 40 mg PO BIDAC [facility] Last Admin: 08/31/20 07:37 Dose: 40 mg Documented by: Potassium Chloride (Klor-Con M20) 40 meq PO DAILY [facility] Last Admin: 08/31/20 07:36 Dose: 40 meq Documented by: Sodium Chloride (Saline Flush) 10 ml FLUSH ASDIRECTED PRN PRN Reason: Keep Vein Open Sodium Chloride (Saline Flush) 10 ml FLUSH ASDIRECTED PRN PRN Reason: Keep Vein Open Sodium Chloride (Saline Flush) 10 ml FLUSH BID [facility] Last Admin: 08/16/20 21:29 Dose: Not Given Documented by: Tamsulosin HCl (Flomax) 0.4 mg PO DAILY [facility] Last Admin: 08/31/20 07:37 Dose: 0.4 mg Documented by: Tramadol HCl (Ultram) 50 mg PO Q6H PRN PRN Reason: Pain
== END 2020-08-31 13:00 | DRG 291 ==
LOC: LB.MS 02:14
PROVIDERS: ADMIT Registered Nurse; ATTEND Family Medicine
DX: I11.0 Hypertensive heart disease with heart failure (principal); J18.9 Pneumonia, unspecified organism; J96.11 Chronic respiratory failure with hypoxia; M62.82 Rhabdomyolysis; I50.9 Heart failure, unspecified; R53.1 Weakness; H91.90 Unspecified hearing loss, unspecified ear; H54.7 Unspecified visual loss; E78.00 Pure hypercholesterolemia, unspecified; I48.91 Unspecified atrial fibrillation; N40.0 Benign prostatic hyperplasia without lower urinary tract symptoms; F41.9 Anxiety disorder, unspecified; I25.10 Atherosclerotic heart disease of native coronary artery without angina pectoris; Z96.649 Presence of unspecified artificial hip joint; Z20.828 Contact with and (suspected) exposure to other viral communicable diseases; Z79.82 Long term (current) use of aspirin; Z79.899 Other long term (current) drug therapy; Z79.01 Long term (current) use of anticoagulants; Z85.828 Personal history of other malignant neoplasm of skin; Z85.820 Personal history of malignant melanoma of skin; R29.898 Other symptoms and signs involving the musculoskeletal system; C44.42 Squamous cell carcinoma of skin of scalp and neck
CPT/HCPCS: A9270-GY; U0002

== ENCOUNTER 2021-02-17 06:57 | Emergency (ER) | payer MEDICARE ==
--- NOTE | 2021-02-17 07:28 | EDM.PDOC ---
ED HPI GENERAL MEDICAL PROBLEM - General Chief Complaint: Skin Complaint Stated Complaint: BLEEDING CARCINOMA Time Seen by Provider: 02/17/21 07:00 Source of Information: Reports: Patient, [facility] Records, RN History Limitations: Reports: No Limitations - History of Present Illness INITIAL COMMENTS - FREE TEXT/NARRATIVE: patient from the [place] - with a h/o end stage skin cancer of the scalp - that is forming an ulcer and eroding the skin, being managed conservatively with daily wound care dressing. Patient was brought to the ER due to bleeding from the wound. no fall or injury. Upon arrival to the ER - wound bleeding has slowed significantly with direct pressure. - Related Data Allergies Allergy/AdvReac Type Severity Reaction Status Date / Time No Known Allergies Allergy Verified 07/28/20 16:46 Home Meds: Home Meds Aspirin [Halfprin] 81 mg PO DAILY 01/18/15 [History] Lisinopril 1 tab PO DAILY 01/18/15 [History] amLODIPine [Norvasc] 1 tab PO DAILY 01/31/16 [History] atorvaSTATin Calcium [Atorvastatin Calcium] 40 mg PO QPM 01/31/16 [History] Mometasone/Formoterol [Dulera 200 Mcg/5 Mcg Inhaler] 2 puff IH BID 06/21/20 [History] traMADol [Ultram] 1 tab PO Q6H PRN 06/21/20 [History] Albuterol/Ipratropium [DuoNeb 3.0-0.5 MG/3 ML] 1 ampule NEB Q4H PRN 07/28/20 [History] Ferrous Sulfate 1 tab PO BIDMEALS 07/28/20 [History] Furosemide 1 tab PO BID 07/28/20 [History] LORazepam [Ativan] 1 tab PO TID PRN 07/28/20 [History] Melatonin 2 tab PO BEDTIME PRN 07/28/20 [History] Metoprolol Tartrate 0.5 tab PO BID 07/28/20 [History] Omeprazole 40 mg PO BIDAC 07/28/20 [History] Tamsulosin [Tamsulosin 24 Hr] 1 cap PO DAILY 07/28/20 [History] Umeclidinium Brm/Vilanterol Tr [Anoro Ellipta 62.5-25 MCG] 1 puff IH DAILY 07/28/20 [History] Mupirocin Oint [Bactroban Oint] 1 applic TOP TID 08/07/20 [History] Vitamins A and D [Vitamin A & D] 1 applic TOP BEDTIME 08/07/20 [History] Past Medical History HEENT History: Reports: Hard of Hearing, Impaired Vision Cardiovascular History: Reports: Afib, CAD, Heart Failure, High Cholesterol, Hypertension, Pacemaker, SOB on Exertion Respiratory History: Reports: Bronchitis, Recurrent, COPD, SOB, Other (See Below) Other Respiratory History: chronic respiratory failure with hypoxia Gastrointestinal History: Reports: Colon Polyp, GERD, GI Bleed Genitourinary History: Reports: BPH Musculoskeletal History: Reports: Osteoarthritis Neurological History: Reports: CVA Psychiatric History: Reports: Anxiety Endocrine/Metabolic History: Reports: Hypokalemia, Hypomagnesemia Hematologic History: Reports: Anticoagulation Therapy Oncologic (Cancer) History: Reports: Basal Cell Carcinoma, Other (See Below) Other Oncologic History: hx of skin CA Dermatologic History: Reports: Melanoma, Other (See Below) Other Dermatologic History: hx of skin ca with CA removed from back lip nose and head - Infectious Disease History Infectious Disease History: Reports: Mumps Other Infectious Disease History: patient is unsure but states he might have had the measels and mumps and was the only one in his family that didn't get chicken pox - Past Surgical History Head Surgeries/Procedures: Reports: None HEENT Surgical History: Reports: Other (See Below) Other HEENT Surgeries/Procedures: glasses, bilat hearing aids Cardiovascular Surgical History: Reports: Pacer, Other (See Below) Other Cardiovascular Surgeries/Procedures: patient unsure of how many stents he has had GI Surgical History: Reports: Colonoscopy, Polypectomy Other GI Surgeries/Procedures: pt unsure of gastrointestinal history Neurological Surgical History: Reports: None Musculoskeletal Surgical History: Reports: Hip Replacement Other Musculoskeletal Surgeries/Procedures:: BL hip replacement Dermatological Surgical History: Reports: Skin Biopsy Social & Family History - Family History Family Medical History: No Pertinent Family History Cardiac: Reports: CAD, Pacemaker Respiratory: Reports: COPD GI: Reports: None : Reports: None Neurological: Reports: None Psychiatric: Reports: None Endocrine/Metabolic: Reports: None Hematologic: Reports: None Immunologic: Reports: None Oncologic: Reports: Skin - Caffeine Use Caffeine Use: Reports: Coffee, Soda - Living Situation & Occupation Living situation: Reports: Single Occupation: Retired ED ROS GENERAL - Review of Systems Review Of Systems: See Below Constitutional: Reports: No Symptoms HEENT: Reports: No Symptoms Respiratory: Reports: No Symptoms Cardiovascular: Reports: No Symptoms GI/Abdominal: Reports: No Symptoms Neurological: Reports: No Symptoms ED EXAM, GENERAL - Physical Exam Exam: See Below Exam Limited By: No Limitations General Appearance: Alert, No Apparent Distress Eye Exam: Bilateral Eye: EOMI Head: Other (there a large eroding skin lesion on the scalp ) Respiratory/Chest: No Respiratory Distress Cardiovascular: Regular Rate, Rhythm Course - Vital Signs Last Recorded V/S: Last Vital Signs Temp 36.2 C 02/17/21 07:59 Pulse 82 02/17/21 07:59 Resp 36 H 02/17/21 07:59 BP 100/50 L 02/17/21 07:59 Pulse Ox 94 L 02/17/21 07:59 - Re-Assessments/Exams Free Text/Narrative Re-Assessment/Exam: a direct pressure was applied until bleeding stopped. Silver nitrites was applied to chemical cautery the slowly oozing area - with good result no more bleeding new dressing was applied. Departure - Departure Time of Disposition: 07:30 Disposition: Home, Self-Care 01 Condition: Good Clinical Impression: Skin cancer of scalp - Discharge Information *PRESCRIPTION DRUG MONITORING PROGRAM REVIEWED*: Not Applicable *COPY OF PRESCRIPTION DRUG MONITORING REPORT IN PATIENT TEZ: Not Applicable Referrals: PCP,None [Primary Care Provider] - Forms: ED Department Discharge Additional Instructions: - apply non-adhesive first, then two of ( 4x4 ) on top of it.. wrap with a coband keep pressure. - dressing change once daily only - apply pressure for 20 minutes next time bleeding occur. Non- interrupted pressure preferred. bleeding will eventually stop. - Problem List & Annotations (1) Squamous cell carcinoma of scalp SNOMED Code(s): 598579659 Code(s): C44.42 - SQUAMOUS CELL CARCINOMA OF SKIN OF SCALP AND NECK Status: Acute Priority: High - Problem List Review Problem List Initiated/Reviewed/Updated: Yes - Assessment/Plan Plan: - apply non-adhesive first, then two of ( 4x4 ) on top of it.. wrap with a coband keep pressure. - dressing change once daily only - apply pressure for 20 minutes next time bleeding occur. Non- interrupted pressure preferred. bleeding will eventually stop.
[2021-02-17 08:01] VITALS: BP 100/50; PULSE 82
== END 2021-02-17 08:14 | disposition home or self-care (01) ==
LOC: LB.ED 06:57
DX: C44.40 Unspecified malignant neoplasm of skin of scalp and neck (principal); I48.91 Unspecified atrial fibrillation; I25.10 Atherosclerotic heart disease of native coronary artery without angina pectoris; I11.0 Hypertensive heart disease with heart failure; I50.9 Heart failure, unspecified; J44.9 Chronic obstructive pulmonary disease, unspecified; K21.9 Gastro-esophageal reflux disease without esophagitis; E78.00 Pure hypercholesterolemia, unspecified; N40.0 Benign prostatic hyperplasia without lower urinary tract symptoms; M19.90 Unspecified osteoarthritis, unspecified site; Z86.73 Personal history of transient ischemic attack (TIA), and cerebral infarction without residual deficits; Z79.82 Long term (current) use of aspirin; Z79.899 Other long term (current) drug therapy
CPT/HCPCS: 99283